=== PATIENT | female | born 1945 | race Caucasian/White ===

== ENCOUNTER 2018-05-01 18:25 | Inpatient (IN) ==
[2018-05-01] MEDS ORDERED: Sod Chloride 0.9% Inj 1,000 ML IV.SIG ONE (18:49)
[2018-05-01 19:41] LABS: Hematocrit 28.2 % (35.0-46.0); Hemoglobin 9.8 gm/dL (11.6-15.3); Mean Corpuscular HGB Conc 34.7 % (32.0-36.0); Mean Corpuscular Hemoglobin 29.1 pg (27.0-34.0); Mean Platelet Volume 7.9 fL (7.0-11.0); Platelet Count 478 th/mm3 (150-450); Red Blood Count 3.36 mil/mm3 (4.00-5.30); Red Cell Distribution Width 14.9 % (11.6-17.2); White Blood Count 7.8 th/mm3 (4.0-11.0)
[2018-05-01 20:07] LABS: Eosinophils 1 % (0-4); Lymphocytes 26 % (9-44); Metamyelocytes 3 % (0-1); Monocytes 9 % (0-8)
[2018-05-01 20:09] LABS: Dohle Bodies Present; Platelet Morphology Normal (Normal)
--- NOTE | 2018-05-01 21:10 | ED ---
HPI General Chief complaint: GI Bleed Stated complaint: Rectal bleeding Time Seen by Provider: 05/01/18 18:35 Source: patient Limitations: no limitations History of Present Illness HPI Narrative: Patient is a 72-year-old female, past medical history significant for atrial fibrillation for which she is on Eliquis, who presents with complaint of bright red blood per rectum. She states that she has had profuse, watery diarrhea for the last several weeks and has now started to have hematochezia. She is also having intermittent lightheadedness with intermittent generalized weakness. No chest pain, dyspnea. No abdominal pain, back pain. No fever nor chills. No history of liver disease nor alcoholism. MD complaint: gross hematochezia Onset (ago): day(s) Pain Consistency: constant Severity: moderate Relieving factors: none Exacerbating factors: none Context: medication/supplement use Treatments Prior to Arrival: none Related Data Home Medications Medication Instructions Recorded Confirmed aspirin [Aspir-Low] 81 mg PO DAILY 04/17/18 05/01/18 cholecalciferol (vitamin D3) 2,000 unit PO DAILY 04/17/18 05/01/18 [Vitamin D3] omeprazole 20 mg PO DAILY 04/17/18 05/01/18 vit C,R-Ts-gnmup-lutein-zeaxan 1 tab PO BID 04/17/18 05/01/18 [PreserVision AREDS 2] metoprolol tartrate 100 mg PO BID 05/01/18 05/01/18 simvastatin 20 mg PO HS 05/01/18 05/01/18 Previous Rx's Medication Instructions Recorded apixaban [Eliquis] 5 mg PO BID 30 Days #60 tab 04/24/18 levofloxacin 750 mg PO DAILY #7 tab 04/24/18 magnesium oxide 400 mg PO DAILY 30 Days #30 tab 04/24/18 metronidazole 500 mg PO TID 9 Days #27 tab 04/24/18 potassium chloride 20 meq PO DAILY 30 Days #30 tab 04/24/18 loperamide 1 mg PO Q3H PRN #10 tab 04/25/18 nystatin 5 ml BUCCAL QID 7 Days #140 ml 04/26/18 Allergies Allergy/AdvReac Type Severity Reaction Status Date / Time erythromycin base Allergy Diarrhea Verified 04/17/18 11:12 Review of Systems ROS: all other systems reviewed are negative [facility] Social History Social History Substance History: No History of Abuse Smoking Status: Never smoker How Often Do You Have a Drink Containing Alcohol: Never Recent Travel in [facility] within the Last 8 Weeks: No Recent Out of Country Travel within the Last 8 Weeks: No Immunization History Tetanus Immunization: <5 Years Hx Influenza Vaccine This Season: Yes Exam Narrative Exam Narrative: GENERAL: Ill-appearing female in no acute distress SKIN: Focused skin assessment warm/dry, pale. HEAD: Atraumatic. Normocephalic. EYES: Pupils equal and round. No scleral icterus. No injection or drainage. ENT: No nasal bleeding or discharge. Mucous membranes pink and moist. NECK: Trachea midline. No JVD. CARDIOVASCULAR: Regular rate and rhythm. No murmur appreciated. Intact and equal peripheral pulses. RESPIRATORY: No accessory muscle use. Clear to auscultation. Breath sounds equal bilaterally. GASTROINTESTINAL: Abdomen soft, non-tender, nondistended. Hepatic and splenic margins not palpable. Bright red blood per rectum. MUSCULOSKELETAL: No obvious deformities. No clubbing. No cyanosis. No edema. NEUROLOGICAL: Awake and alert. No obvious cranial nerve deficits. Motor grossly within normal limits. Normal sensation. No ataxia. Normal speech. PSYCHIATRIC: Appropriate mood and affect; insight and judgment normal. Course Initial Documented Vital Signs Temperature 98.3 F 05/01/18 18:33 Pulse Rate 98 H 05/01/18 18:33 Respiratory Rate 18 05/01/18 18:33 Blood Pressure 82/51 L 05/01/18 18:33 Pulse Oximetry 96 05/01/18 18:33 Last Documented Vital Signs Temperature 98.4 F 05/01/18 21:54 Pulse Rate 104 H 05/02/18 00:16 Respiratory Rate 18 05/02/18 00:16 Blood Pressure 118/50 L 05/02/18 00:16 Pulse Oximetry 99 05/01/18 21:54 Medical Decision Making MDM Narrative Medical decision making narrative: Patient is a 72-year-old female, past medical history significant for atrial fibrillation recently started on blood thinners, who presents with complaint of several weeks of profuse, watery diarrhea that is now bloody. She denies any pain. She does have gross hematochezia on exam. She was initially hypotensive and was given fluids to which her blood pressure did respond. Initial CBC revealed a hemoglobin that had dropped approximately 3 points from her baseline and repeat several hours later had dropped another point at which time 2 units of PRBCs was ordered as she had hypotension, though it was improving (systolic in the 90s with a HR in the 90s and normal mental status). Labs reveal an MAC as well. CT pending. Patient was admitted to Dr Jensen, l d rn carton repairer, whom accepted the patient. Medical Screen Exam Complete: Yes Emergency Medical Condition: Yes Differential Diagnosis Differential Diagnosis: Differential diagnosis includes but is not limited to diverticulosis, AVM, colitis. Medical Records Medical records reviewed: Yes I reviewed the patient's medical records. Lab Data Lab results reviewed: Yes I reviewed the patient's lab results. Result diagrams: 05/01/18 21:55 05/01/18 21:50 Lab Results 05/01/18 05/01/18 05/01/18 Range/Units 19:30 19:40 19:40 CBC w Diff Slide review pending WBC 7.8 (4.0-11.0) th/mm3 RBC 3.36 L (4.00-5.30) mil/mm3 Hgb 9.8 L (11.6-15.3) gm/dL Hct 28.2 L (35.0-46.0) % MCV 84.0 (80.0-100.0) fL MCH 29.1 (27.0-34.0) pg MCHC 34.7 (32.0-36.0) % RDW 14.9 (11.6-17.2) % Plt Count 478 H D (150-450) th/mm3 MPV 7.9 (7.0-11.0) fL WBC Differential Manual diff final Seg Neuts % (Manual) 37 (16-70) % Band Neuts % (Manual) 24 H (0-6) % Lymphocytes % (Manual) 26 (9-44) % Monocytes % (Manual) 9 H (0-8) % Eosinophils % (Manual) 1 (0-4) % Metamyelocytes % (Man) 3 H (0-1) % Abs Neuts (Manual) 5.0 (1.8-7.7) th/mm3 Differential Comment . Dohle Bodies Present H (None) Platelet Estimate High H (Normal) Platelet Morphology Normal (Normal) PT (9.8-11.6) sec INR Ratio APTT (24.3-30.1) sec Sodium (136-145) meq/L Potassium (3.5-5.1) meq/L Chloride (98-107) meq/L Carbon Dioxide (21.0-32.0) meq/L Anion Gap (5-15) meq/L BUN (7-18) mg/dL Creatinine (0.50-1.00) mg/dL Estimated GFR (>89) mL/min Random Glucose (74-106) mg/dL Calcium (8.5-10.1) mg/dL Prot Corrected Calcium (8.5-10.1) mg/dL Total Bilirubin (0.2-1.0) mg/dL AST (15-37) U/L ALT (10-53) U/L Alkaline Phosphatase (45-117) U/L Total Protein (6.4-8.2) g/dL Albumin (3.4-5.0) g/dL Lipase (73-393) U/L Ur Collection Type Urine Color (Yellw/Straw) Urine Clarity (Clear) Urine pH (5.0-8.5) Ur Specific [place] (1.002-1.035) Urine Protein (Neg-Trace) mg/dL Urine Glucose (UA) (Negative) mg/dL Urine Ketones (Negative) mg/dL Urine Occult Blood (Negative) Urine Nitrate (Negative) Urine Bilirubin (Negative) Urine Urobilinogen (Less than 2) mg/dL Ur Leukocyte Esterase (Negative) Urine RBC (0-3) /hpf Urine WBC (0-5) /hpf Ur Squamous Epith Cells (0-5) /hpf Urine Bacteria (None) /hpf Micro UA Comment Ur Microscopic Review Urine Culture Comments Blood Type A Negative Blood Type Recheck Required Antibody Screen Negative MTS Gel Crossmatch See Detail 05/01/18 05/01/18 05/01/18 Range/Units 21:50 21:50 21:55 CBC w Diff WBC 6.2 (4.0-11.0) th/mm3 RBC 2.89 L (4.00-5.30) mil/mm3 Hgb 8.2 L (11.6-15.3) gm/dL Hct 24.5 L (35.0-46.0) % MCV 84.8 (80.0-100.0) fL MCH 28.4 (27.0-34.0) pg MCHC 33.5 (32.0-36.0) % RDW 14.7 (11.6-17.2) % Plt Count 493 H (150-450) th/mm3 MPV 7.3 (7.0-11.0) fL WBC Differential Seg Neuts % (Manual) (16-70) % Band Neuts % (Manual) (0-6) % Lymphocytes % (Manual) (9-44) % Monocytes % (Manual) (0-8) % Eosinophils % (Manual) (0-4) % Metamyelocytes % (Man) (0-1) % Abs Neuts (Manual) (1.8-7.7) th/mm3 Differential Comment Dohle Bodies (None) Platelet Estimate (Normal) Platelet Morphology (Normal) PT 22.4 H (9.8-11.6) sec INR 2.2 Ratio APTT 57.8 H (24.3-30.1) sec Sodium 143 (136-145) meq/L Potassium 3.5 (3.5-5.1) meq/L Chloride 117 H (98-107) meq/L Carbon Dioxide 15.5 L (21.0-32.0) meq/L Anion Gap 11 (5-15) meq/L BUN 34 H (7-18) mg/dL Creatinine 2.60 H (0.50-1.00) mg/dL Estimated GFR 18 L (>89) mL/min Random Glucose 89 (74-106) mg/dL Calcium 6.1 L* (8.5-10.1) mg/dL Prot Corrected Calcium 7.5 L (8.5-10.1) mg/dL Total Bilirubin 0.3 (0.2-1.0) mg/dL AST 20 (15-37) U/L ALT 9 L (10-53) U/L Alkaline Phosphatase 40 L (45-117) U/L Total Protein 4.3 L (6.4-8.2) g/dL Albumin 0.9 L (3.4-5.0) g/dL Lipase 143 (73-393) U/L Ur Collection Type Urine Color (Yellw/Straw) Urine Clarity (Clear) Urine pH (5.0-8.5) Ur Specific [place] (1.002-1.035) Urine Protein (Neg-Trace) mg/dL Urine Glucose (UA) (Negative) mg/dL Urine Ketones (Negative) mg/dL Urine Occult Blood (Negative) Urine Nitrate (Negative) Urine Bilirubin (Negative) Urine Urobilinogen (Less than 2) mg/dL Ur Leukocyte Esterase (Negative) Urine RBC (0-3) /hpf Urine WBC (0-5) /hpf Ur Squamous Epith Cells (0-5) /hpf Urine Bacteria (None) /hpf Micro UA Comment Ur Microscopic Review Urine Culture Comments Blood Type Blood Type Recheck Antibody Screen MTS Gel Crossmatch 05/01/18 Range/Units 23:00 CBC w Diff WBC (4.0-11.0) th/mm3 RBC (4.00-5.30) mil/mm3 Hgb (11.6-15.3) gm/dL Hct (35.0-46.0) % MCV (80.0-100.0) fL MCH (27.0-34.0) pg MCHC (32.0-36.0) % RDW (11.6-17.2) % Plt Count (150-450) th/mm3 MPV (7.0-11.0) fL WBC Differential Seg Neuts % (Manual) (16-70) % Band Neuts % (Manual) (0-6) % Lymphocytes % (Manual) (9-44) % Monocytes % (Manual) (0-8) % Eosinophils % (Manual) (0-4) % Metamyelocytes % (Man) (0-1) % Abs Neuts (Manual) (1.8-7.7) th/mm3 Differential Comment Dohle Bodies (None) Platelet Estimate (Normal) Platelet Morphology (Normal) PT (9.8-11.6) sec INR Ratio APTT (24.3-30.1) sec Sodium (136-145) meq/L Potassium (3.5-5.1) meq/L Chloride (98-107) meq/L Carbon Dioxide (21.0-32.0) meq/L Anion Gap (5-15) meq/L BUN (7-18) mg/dL Creatinine (0.50-1.00) mg/dL Estimated GFR (>89) mL/min Random Glucose (74-106) mg/dL Calcium (8.5-10.1) mg/dL Prot Corrected Calcium (8.5-10.1) mg/dL Total Bilirubin (0.2-1.0) mg/dL AST (15-37) U/L ALT (10-53) U/L Alkaline Phosphatase (45-117) U/L Total Protein (6.4-8.2) g/dL Albumin (3.4-5.0) g/dL Lipase (73-393) U/L Ur Collection Type Cath Urine Color Amy H (Yellw/Straw) Urine Clarity Slightly cloudy (Clear) Urine pH 5.5 (5.0-8.5) Ur Specific [place] 1.020 (1.002-1.035) Urine Protein 100 H (Neg-Trace) mg/dL Urine Glucose (UA) Negative (Negative) mg/dL Urine Ketones Negative (Negative) mg/dL Urine Occult Blood Large H (Negative) Urine Nitrate Positive H (Negative) Urine Bilirubin Negative (Negative) Urine Urobilinogen 0.2 (Less than 2) mg/dL Ur Leukocyte Esterase Negative (Negative) Urine RBC 51-189 H (0-3) /hpf Urine WBC 0-5 (0-5) /hpf Ur Squamous Epith Cells 0-5 (0-5) /hpf Urine Bacteria Few H (None) /hpf Micro UA Comment Cath-culture ind Ur Microscopic Review Microscopic reviewed Urine Culture Comments Cath-cult indicated Blood Type Blood Type Recheck Antibody Screen MTS Gel Crossmatch ECG Data EKG Prior to Arrival: No Attestation: I personally reviewed and interpreted this ECG as follows: (Sinus rhythm at a rate of [address] or T-wave changes.) Discharge Plan Discharge Disposition Patient Disposition: 30 Still Patient Discharge Condition Condition: Serious Discharge Details Diagnosis: Acute blood loss anemia, MAC (acute kidney injury), Acute dehydration, Acute hypotension Physicians Team ED Provider: Manju Panchal Primary Care Provider: UNKNOWN, Attending Provider: Luigi Jensen Discharge Interventions Interventions: Vital Signs Last Done: 05/02/18 00:16 Status ED Status: Admitted Patient
[2018-05-01 22:05] LABS: Potassium 3.5 meq/L (3.5-5.1)
[2018-05-01 22:05] LABS: Hematocrit 24.5 % (35.0-46.0); Hemoglobin 8.2 gm/dL (11.6-15.3); Mean Corpuscular HGB Conc 33.5 % (32.0-36.0); Mean Corpuscular Hemoglobin 28.4 pg (27.0-34.0); Mean Corpuscular Volume 84.8 fL (80.0-100.0); Mean Platelet Volume 7.3 fL (7.0-11.0); Platelet Count 493 th/mm3 (150-450); Red Blood Count 2.89 mil/mm3 (4.00-5.30); Red Cell Distribution Width 14.7 % (11.6-17.2); White Blood Count 6.2 th/mm3 (4.0-11.0)
[2018-05-01 22:10] LABS: Activated Partial Thrombo Time 57.8 sec (24.3-30.1); INR 2.2 Ratio; Prothrombin Time 22.4 sec (9.8-11.6)
[2018-05-01 22:22] LABS: Albumin 0.9 g/dL (3.4-5.0); Calcium 6.1 mg/dL (8.5-10.1); Carbon Dioxide 15.5 meq/L (21.0-32.0); Total Protein 4.3 g/dL (6.4-8.2)
[2018-05-01] MEDS ORDERED: Sodium Chlor 0.9% Inj 250 ML IV.SIG SCH (23:00)
[2018-05-01 23:27] LABS: Bilirubin,Urine Negative (Negative); Clarity,Urine Slightly Cloudy (Clear); Glucose,Urine (UA) Negative (Negative); Leukocyte Esterase,Urine Negative (Negative); Nitrite,Urine Positive (Negative); PH,Urine 5.5 (5.0-8.5); Urobilinogen,Urine 0.2 mg/dL (Less than 2)
[2018-05-01 23:31] LABS: Color,Urine Amber (Yellw/Straw)
[2018-05-01 23:32] LABS: Bacteria,Urine Few /hpf; RBC,Urine 51-189 /hpf (0-3); Squamous Epithelial Cell,Urine 0-5 /hpf (0-5); WBC,Urine 0-5 /hpf (0-5)
--- NOTE | 2018-05-02 00:57 | CT ---
EXAM DATE: 05/02/2018 12:37 AM EDT AGE/SEX: 72 years / Female INDICATIONS: Rectal bleeding. Diarrhea. CLINICAL DATA: This is the patient's initial encounter. Patient reports that signs and symptoms have been present for 1 day and indicates a pain score of 5/10. MEDICAL/SURGICAL HISTORY: None. None. RADIATION DOSE: 25.00 CTDI (mGy) COMPARISON: [facility], CT ABDOMEN & PELVIS W/O CONTRAST, 04/17/2018. . TECHNIQUE: Multiple contiguous axial images were obtained through the abdomen. Images were obtained using multiple row detector helical technique. Using automated exposure control and adjustment of the mA and/or kV according to patient size, radiation dose was kept as low as reasonably achievable to o btain optimal diagnostic quality images. DICOM format image data is available electronically for rev iew and comparison. FINDINGS: Lower Lungs: Mild patchy infiltrate in the lung bases. Liver: The liver has a homogeneous density without space-occupying lesion. There is no dilation of th e biliary tree. Gallbladder filled with stones. Spleen: Homogeneous density without enlargement. Pancreas: Unremarkable without mass or calcification. Kidneys: Persistent moderate right hydronephrosis proximal to a slightly greater than 10 mm stone in the proximal right ureter. Multiple additional nonobstructing calculi in the renal pelvis and right kidney. Interval resolution of left hydronephrosis with apparent displacement of a sizable stone prev iously present at the ureteropelvic junction into the lower pole collecting system. Multiple renal co rtical and parapelvic cysts. Adrenal Glands: Unremarkable. Aorta: The aorta and proximal iliac vessels are grossly unremarkable without aneurysmal dilation. Bowel/Mesentery: The colon is moderately dilated proximally. Air-fluid levels present. There are div erticula present and there is mild indurative change adjacent to portions of the distal colon, most c onspicuously in the region of the splenic flexure and proximal descending. There is no clear transiti on point to indicate mechanical obstruction. The small bowel is mildly distended. Abdominal Wall: Fat-containing umbilical hernia again noted. Retroperitoneum: No evidence of adenopathy in the retrocrural, para-aortic, or deep pelvic regions. Bladder: Contours are smooth. Reproductive Organs: No abnormal masses or calcifications seen. Inguinal: The inguinal region is unremarkable without evidence of adenopathy. Bony Structures: Severe presumed posttraumatic and arthritic deformity of the right hip. Degenerativ e changes in the spine. CONCLUSION: 1. Possible distal colonic diverticulitis or colitis with findings most suggestive of associated ile us. 2. Persistent right-sided hydronephrosis with proximal right ureteral stone. 3. Interval resolution of left-sided hydronephrosis 4. Other abdominal and pelvic findings are grossly stable. Electronically signed by: Dano Brown MD 05/02/2018 12:56 AM EDT
[2018-05-02] MEDS ORDERED: Morphine Inj 4 MG/ML Vial IV.PUSH PRN (03:33)
[2018-05-02] MEDS ORDERED: Bisacodyl 10 MG Supp RECTAL PRN (03:33)
[2018-05-02] MEDS ORDERED: Chlorhexidine Gluconate 2% 1 Pack (2 Cloths) TOPICAL PRN (04:00)
[2018-05-02] MEDS: Pantoprazole Inj 40 MG Vial IV.PUSH SCH ×2 (04:12→18:30)
[2018-05-02] MEDS: Sod Chloride 0.9% Inj 1,000 ML IV.CONT SCH ×4 (04:12→22:22)
[2018-05-02] MEDS: Chlorhexidine Gluconate 2% 1 Pack (2 Cloths) TOPICAL SCH (04:12)
[2018-05-02] MEDS ORDERED: Phenylephrine Inj 40 MG in Dextrose 5% in Water Inj 496 ML IV.CONT PRN ×2 (04:38)
[2018-05-02] MEDS: Sod Chloride 0.9% Inj 1,000 ML IV.SIG SCH ×2 (04:40→06:09)
[2018-05-02] MEDS ORDERED: Calcium Chloride Inj 2 GM in Sodium Chlor 0.9% Inj 100 ML IV.SIG ONE (04:43)
--- NOTE | 2018-05-02 04:44 | P.HPCC ---
History of Present Illness Primary Care Physician: UNKNOWN History of Present Illness: 72-year-old female, past medical history significant for atrial fibrillation on Eliquis, presents with complaint of bright red blood per rectum. She states that she has had profuse, watery diarrhea for the last several weeks and has now started to have hematochezia. She is also having intermittent lightheadedness with intermittent generalized weakness. She denies chest pain, shortness of breath. No abdominal pain, back pain. No fever nor chills. No history of liver disease nor alcoholism. Inpatient Certification: I certify that the inpatient services were ordered in accordance with Medicare regulations governing the order. This includes certification that hospital inpatient services are reasonable and necessary and in the case of services not specified as inpatient-only under 42 CFR 419.22(n), that they are appropriately provided as inpatient services in accordance to with the 2-midnight benchmark under 43 CFR 412.3(e) Estimated Total Length of Stay (Days): 5 Plans for Post Hospital Care: Not yet determined Review of Systems All other systems reviewed negative except as stated [facility] - History History Provided By: Patient - Tobacco History Second Hand Smoke Exposure: No Smoking Status: Never smoker - Alcohol History How Often Do You Have a Drink Containing Alcohol: Never - Substance Use History Substance History: No History of Abuse - Travel History Recent Travel in the [place] Within the Last 8 Weeks: No Recent Travel Out of the Country Within the Last 8 Weeks: No - Immunization History Tetanus Immunization: <5 Years Hx Influenza Vaccine This Season: Yes Medications and Allergies Active Medications: Active Medications Acetaminophen (Tylenol) 650 mg PO Q6H PRN PRN Reason: PAIN 1-10 AND/OR FEVER >101F Al Hydroxide/Mg Hydroxide (Milk Of [place] Liq) 30 ml PO Q12H PRN PRN Reason: Mild Constipation Albuterol (Duoneb Neb (Prn)) 1 ampul NEB Q2HR NEB PRN PRN Reason: WHEEZING Bisacodyl (Dulcolax Supp) 10 mg RECTAL DAILY PRN PRN Reason: SEVERE CONSITIPATION Chlorhexidine Gluconate (Chlorhexidine 2% Cloth) 3 pack TOPICAL DAILY@0400 PRN PRN Reason: Extra cloth needed Stop: 05/07/18 03:59 Chlorhexidine Gluconate (Chlorhexidine 2% Cloth) 3 pack TOPICAL DAILY@0400 LYNN Stop: 05/07/18 03:59 Last Admin: 05/02/18 04:12 Dose: 3 pack Sodium Chloride (Ns Inj) 250 mls @ 15 mls/hr IV.SIG ONCE LYNN Stop: 05/02/18 15:39 Last Admin: 05/02/18 03:14 Dose: 15 mls/hr Sodium Chloride (Ns Inj) 1,000 mls @ 0 mls/hr IV.SIG BOLUS [facility] Stop: 05/03/18 03:46 Sodium Chloride (Ns Inj) 1,000 mls @ 154 mls/hr IV.CONT .Q6H30M [facility] Last Admin: 05/02/18 04:12 Dose: 154 mls/hr Metronidazole/Sodium Chloride (Flagyl 500 Mg Inj) 100 mls @ 100 mls/hr IV.SIG Q6H LYNN Levofloxacin/Dextrose (Levaquin 750 Mg Premix Inj) 150 mls @ 100 mls/hr IV.SIG Q48H [facility] Lactulose (Lactulose Liq) 30 ml PO DAILY PRN PRN Reason: SEVERE CONSITIPATION Morphine Sulfate (Morphine Inj) 2 mg IV.PUSH Q2H PRN PRN Reason: PAIN SCALE 6 TO 10 Nystatin (Mycostatin Liq) 5 ml BUCCAL QID L[facility]NN Ondansetron HCl (Zofran Inj) 4 mg IV.PUSH Q6H PRN PRN Reason: NAUSEA OR VOMITING Pantoprazole Sodium (Protonix Inj) 40 mg IV.PUSH Q12H [facility] Last Admin: 05/02/18 04:12 Dose: 40 mg Pravastatin Sodium (Pravachol) 40 mg PO HS [facility] Senna/Docusate Sodium (Maggie-Colace) 1 tab PO BID [facility] Sennosides (Senokot) 17.2 mg PO Q12H PRN PRN Reason: Moderate Constipation Sodium Chloride (Ns Flush) 2 ml IV.FLUSH PRN PRN PRN Reason: FLUSH AFTER USING IV ACCESS Sodium Chloride (Ns Flush) 2 ml IV.FLUSH BID [facility] Sodium Chloride (Ns Flush) 2 ml IV.FLUSH PRN PRN PRN Reason: FLUSH AFTER USING IV ACCESS Vitamin D (Vitamin D3) 2,000 unit PO DAILY [facility] Allergies Allergy/AdvReac Type Severity Reaction Status Date / Time erythromycin base Allergy Diarrhea Verified 04/17/18 11:12 Home Medications Medication Instructions Recorded Confirmed Type aspirin [Aspir-Low] 81 mg PO DAILY 04/17/18 05/01/18 History cholecalciferol (vitamin D3) 2,000 unit PO DAILY 04/17/18 05/01/18 History [Vitamin D3] omeprazole 20 mg PO DAILY 04/17/18 05/01/18 History vit C,T-Zv-qjbqc-lutein-zeaxan 1 tab PO BID 04/17/18 05/01/18 History [PreserVision AREDS 2] metoprolol tartrate 100 mg PO BID 05/01/18 05/01/18 History simvastatin 20 mg PO HS 05/01/18 05/01/18 History Results - Labs CBC & Chem 7: 05/01/18 21:55 05/01/18 21:50 Labs: Short CBC 05/01/18 05/01/18 Range/Units 19:30 21:55 WBC 7.8 6.2 (4.0-11.0) th/mm3 Hgb 9.8 L 8.2 L (11.6-15.3) gm/dL Hct 28.2 L 24.5 L (35.0-46.0) % Plt Count 478 H D 493 H (150-450) th/mm3 BMP 05/01/18 21:50 Sodium 143 Potassium 3.5 Chloride 117 H Carbon Dioxide 15.5 L BUN 34 H Creatinine 2.60 H Calcium 6.1 L* Liver Function 05/01/18 Range/Units 21:50 Total Bilirubin 0.3 (0.2-1.0) mg/dL AST 20 (15-37) U/L ALT 9 L (10-53) U/L Alkaline Phosphatase 40 L (45-117) U/L Albumin 0.9 L (3.4-5.0) g/dL Urine 05/01/18 Range/Units 23:00 Urine Color Amy H (Yellw/Straw) Urine Clarity Slightly cloudy (Clear) Urine pH 5.5 (5.0-8.5) Ur Specific [place] 1.020 (1.002-1.035) Urine Protein 100 H (Neg-Trace) mg/dL Urine Glucose (UA) Negative (Negative) mg/dL - Imaging Impressions Abdomen/Pelvis CT 05/02/18 00:10 CONCLUSION: 1. Possible distal colonic diverticulitis or colitis with findings most suggestive of associated ileus. 2. Persistent right-sided hydronephrosis with proximal right ureteral stone. 3. Interval resolution of left-sided hydronephrosis 4. Other abdominal and pelvic findings are grossly stable. Exam Vital signs: Vital Signs 05/01/18 18:33 05/01/18 19:00 05/01/18 19:58 Temperature 98.3 F 98.2 F Pulse Rate 98 H 108 H 98 H Respiratory Rate 18 18 18 Blood Pressure 82/51 L 81/52 L 76/50 L Pulse Oximetry 96 98 05/01/18 21:30 05/01/18 21:40 05/01/18 21:54 Temperature 98.4 F Pulse Rate 102 H 96 H 94 H Respiratory Rate 20 18 20 Blood Pressure 88/62 L 81/50 L 94/51 L Pulse Oximetry 99 05/01/18 22:10 05/01/18 23:20 05/02/18 00:16 Temperature Pulse Rate 100 H 104 H 104 H Respiratory Rate 18 18 18 Blood Pressure 79/50 L 80/59 L 118/50 L Pulse Oximetry 05/02/18 00:30 05/02/18 01:30 05/02/18 01:45 Temperature 98.4 F 98.8 F Pulse Rate 98 H 98 H 94 H Respiratory Rate 20 18 20 Blood Pressure 109/56 L 90/50 L 98/62 L Pulse Oximetry 05/02/18 02:01 05/02/18 03:33 05/02/18 03:52 Temperature 98.0 F 97.6 F 97.6 F Pulse Rate 94 H 99 H 101 H Respiratory Rate 18 19 20 Blood Pressure 98/59 L 97/53 L 84/56 L Pulse Oximetry 100 100 Intake & Output 05/01/18 05/01/18 05/02/18 06:59 18:59 06:59 Intake Total 1500 / 1500 Output Total 300 / 300 Balance 1200 / 1200 Weight 105.687 kg 112.2 kg Intake: IV 1100 / 1100 NS Inj 1,000 ML @ Wide Open IV. 1000 / 1000 SIG BOLUS ONE Rx#:[id number] Flagyl 500 MG Inj 100 ML @ 100 100 / 100 mls/hr IV.SIG ONCE ONE Rx#: [id number] Intake (Blood Product) Amt 400 / 400 Rbc As-3 Leukoreduced Unit 0 / 0 [id number] Rbc As-3 Leukoreduced Unit 400 / 400 [id number] Output: Urine 300 / 300 Other: # Voids 1 Date of Last Bowel Movement 05/02/18 # Bowel Movements 3 Weight On Admission 112.2 kg - Constitutional mild distress - Routine HEENT Exam Head: Present: normocephalic, atraumatic Eye: Present: PERRL ENT: Present: mucous membranes moist - Routine Neck Exam Present: supple, full ROM. Absent: JVD, carotid bruit - Routine Chest/Breast/Axilla Exam Chest wall: Absent: tenderness, mass, pacemaker - Routine Respiratory Exam Absent: accessory muscle use, rhonchi, stridor, wheezes - Routine Cardiovascular Exam Present: S1, S2, irregular rhythm. Absent: murmur, gallop, rubs - Routine Abdominal Exam Present: soft, normoactive bowel sounds. Absent: tenderness, distended - Routine Extremities Exam Absent: cyanosis, clubbing, edema - Routine Skin Exam Present: intact. Absent: cyanosis, erythema - Routine Neurological Exam Present: alert, oriented X3, moving all extremities Septic Shock Reassessment Septic shock perfusion: reassessment completed Caprini VTE Risk Assessment Caprini VTE Risk Assessment: Moderate/High Risk (score >= 2) VTE Pharmacological Exception Reason: Hemorrhage Caprini Risk Assessment Model: Point Value = 1 Point Value = 2 Point Value = 3 Point Value = 5 Age 41-60 Minor surgery BMI > 25 kg/m2 Swollen legs Varicose veins or History of unexplained or recurrent spontaneous Oral contraceptives or hormone replacement Sepsis (< 1 month) Serious lung disease, including pneumonia (< 1 month) Abnormal pulmonary function Acute myocardial infarction Congestive heart failure (< 1 month) History of inflammatory bowel disease Medical patient at bed rest Age 61-74 Arthroscopic surgery Major open surgery (> 45 min) Laparoscopic surgery (> 45 min) Malignancy Confined to bed (> 72 hours) Immobilizing plaster cast Central venous access Age >= 75 History of VTE Family history of VTE Factor V Leiden Prothrombin [id number] Lupus anticoagulant Anticardiolipin antibodies Elevated serum homocysteine Heparin-induced thrombocytopenia Other congenital or acquired thrombophilia Stroke (< 1 month) Elective arthroplasty Hip, pelvis, or leg fracture Acute spinal cord injury (< 1 month) Prophylaxis Regimen: Total Risk Factor Score Risk Level Prophylaxis Regimen 0-1 Low Early ambulation 2 Moderate Order ONE of the following: *Sequential Compression Device (SCD) *Heparin 5000 units SQ BID 3-4 Higher Order ONE of the following medications: *Heparin 5000 units SQ TID *Enoxaparin/Lovenox 40 mg SQ daily (WT < 150 kg, CrCl > 30 mL/min) *Enoxaparin/Lovenox 30 mg SQ daily (WT < 150 kg, CrCl > 10-29 mL/min) *Enoxaparin/Lovenox 30 mg SQ BID (WT < 150 kg, CrCl > 30 mL/min) AND/OR *Sequential Compression Device (SCD) 5 or more Highest Order ONE of the following medications: *Heparin 5000 units SQ TID (Preferred with Epidurals) *Enoxaparin/Lovenox 40 mg SQ daily (WT < 150 kg, CrCl > 30 mL/min) *Enoxaparin/Lovenox 30 mg SQ daily (WT < 150 kg, CrCl > 10-29 mL/min) *Enoxaparin/Lovenox 30 mg SQ BID (WT < 150 kg, CrCl > 30 mL/min) AND *Sequential Compression Device (SCD) Assessment and Plan - Assessment and Plan Plan: Acute GI bleed -N.p.o. -Hold aspirin, hold Eliquis -Protonix IV twice daily -IV fluid resuscitation -Transfuse PRBCs to keep hemoglobin above 7 -Gastroenterology consultation -PCC not available at [place] at this time Anemia -Due to above -Series of H&H -Transfuse to keep hemoglobin above 7 Atrial fibrillation -Rate controlled -Hold metoprolol due to borderline hypotension -Hold liquids due to GI bleed -Continue telemetry Dyslipidemia -Pravastatin Diverticulitis - Metronidazole - Levofloxacin Acute kidney injury -Volume loss -Dehydration -Aggressive IV fluid resuscitation -Strict I's and O -Monitor electrolytes and creatinine DVT GI prophylaxis -Teds SCDs -No pharmacological DVT prophylaxis due to GI bleed -Protonix IV twice daily 35 minutes of critical care H&P: Quality - VTE Deep Vein Thrombosis/Pulmonary Embolism Present on Admission: No
[2018-05-02] MEDS ORDERED: VIT C E ZN COPPR LUTEIN ZEAXAN PO SCH (09:00)
[2018-05-02] MEDS: Nystatin Liq 500,000 UNIT/5 ML UDC BUCCAL SCH ×4 (09:46→20:24)
[2018-05-02] MEDS: Senna/Docusate Sodium 8.6/50 MG Tablet PO SCH ×2 (09:47→20:25)
--- NOTE | 2018-05-02 10:25 | P.CONGI ---
History of Present Illness Consult date: 05/02/18 Consult reason: GI Bleed Chief complaint: Acute Blood Loss Anemia, Hypotension, MAC History of Present Illness: Mrs. Hackett is a 72-year-old female patient who presented to the emergency room last evening with report of bright red blood per rectum patient has history of acute renal failure as well as atrial fibrillation and hypercholesterolemia. Patient was taking Eliquis for atrial fibrillation. Patient states that she has had several weeks of loose green stool and bright red blood per rectum was noted by staff at rehab center last evening.Patient reported feeling lightheaded and weak over the last several weeks but has been able to participate in physical therapy at the rehab center. Patient denies abdominal pain, nausea or vomiting. Patient denies shortness of breath at rest or on exertion. Patient states her father on 04/17/2018 and that she began to have loose stools with nausea and vomiting and weakness at that time. Patient denies ever having had a colonoscopy or upper endoscopy. Patient states "I watch my father suffer through the many endoscopies that he underwent. " Patient states that she has always declined to have any endoscopy procedures performed and her primary care physician has her do yearly Cologuard tests. Patient states that these tests have always been negative for any blood present in stool. Last Cologuard test was 1 year ago per patient. Patient reports hx of GERD for which she takes Protonix that controls symptoms. States positive family history for colon cancer, maternal aunt. Patient denies any alcohol usage patient denies smoking and denies NSAID use. Denies any known history of liver disease for herself or family members. She states that she has had bacterial infections in her colon, "many times and they always give me Cipro and it works." I discussed diet recommendations to reduce the incidence of diverticulitis and patient verbalized understanding. Upon arrival to [facility] patient's labs revealed --> WBC 7.8 RBC 3.36 hemoglobin 9.8 hematocrit 28.2. INR 2.2 total bilirubin 0.3 AST 20 ALT 9 alk phos 40 albumin 0.9. Repeat CBC done at 05/01/2018 at 2155 hemoglobin 8.2 hematocrit 24.5. Patient was transfused with 2 units of packed RBCs. CT scan of abdomen and pelvis done and revealed. Possible distal colonic diverticulitis or colitis with findings most suggestive of associated ileus. Persistent right-sided hydronephrosis with proximal right ureteral stone. Interval resolution of left- sided hydronephrosis. Other abdominal and pelvic findings are grossly stable. At this time patient is receiving IV Flagyl and Levaquin. Eliquis is on hold. This practice has been consulted to evaluate and monitor GI bleeding. <Danielle Louis - Last Filed: 05/02/18 13:58> Review of Systems Constitutional: Reports weakness, Denies chills, Denies excessive sweating, Denies night sweats Ears, Nose, Mouth, and Throat: Denies difficulty swallowing Cardiovascular: Denies chest pain, Denies chest pain at rest, Denies chest pain with activity, Denies fainting, Denies generalized swelling, Denies rapid, pounding, or irregular heartbeat, Denies shortness of breath Comments: Pt has hx of atrial fibrillation Gastrointestinal: Reports bright, red blood in stools, Reports change in bowel habits, Reports incontinent of stools, Denies abdominal pain, Denies black, tarry stools, Denies coffee ground vomit, Denies heartburn, Denies nausea, Denies pain with swallowing, Denies vomiting, Denies vomiting blood Genitourinary: Denies blood in urine Musculoskeletal: Denies back pain Skin/Breast: Denies bleeding lesions Neurologic: Denies confusion, Denies dizziness Hematologic/Lymphatic: Denies easy bruising <Danielle Louis - Last Filed: 05/02/18 13:58> PMFSH - History History Provided By: Patient - Tobacco History Second Hand Smoke Exposure: No Smoking Status: Never smoker - Alcohol History How Often Do You Have a Drink Containing Alcohol: Never - Substance Use History Substance History: No History of Abuse - Travel History Recent Travel in the [facility] Within the Last 8 Weeks: No Recent Travel Out of the Country Within the Last 8 Weeks: No - Immunization History Tetanus Immunization: <5 Years Hx Influenza Vaccine This Season: Yes <Danielle Louis - Last Filed: 05/02/18 13:58> Medications and Allergies Active Medications: Active Medications Acetaminophen (Tylenol) 650 mg PO Q6H PRN PRN Reason: PAIN 1-10 AND/OR FEVER >101F Al Hydroxide/Mg Hydroxide (Milk Of Magnesia Liq) 30 ml PO Q12H PRN PRN Reason: Mild Constipation Albuterol (Duoneb Neb (Prn)) 1 ampul NEB Q2HR NEB PRN PRN Reason: WHEEZING Bisacodyl (Dulcolax Supp) 10 mg RECTAL DAILY PRN PRN Reason: SEVERE CONSITIPATION Chlorhexidine Gluconate (Chlorhexidine 2% Cloth) 3 pack TOPICAL DAILY@0400 PRN PRN Reason: Extra cloth needed Stop: 05/07/18 03:59 Chlorhexidine Gluconate (Chlorhexidine 2% Cloth) 3 pack TOPICAL DAILY@0400 LYNN Stop: 05/07/18 03:59 Last Admin: 05/02/18 04:12 Dose: 3 pack Sodium Chloride (Ns Inj) 250 mls @ 15 mls/hr IV.SIG ONCE LYNN Stop: 05/02/18 15:39 Last Admin: 05/02/18 03:14 Dose: 15 mls/hr Sodium Chloride (Ns Inj) 1,000 mls @ 0 mls/hr IV.SIG BOLUS [facility] Stop: 05/03/18 03:46 Last Infusion: 05/02/18 07:10 Dose: Infused Sodium Chloride (Ns Inj) 1,000 mls @ 154 mls/hr IV.CONT .Q6H30M [facility] Last Admin: 05/02/18 04:12 Dose: 154 mls/hr Metronidazole/Sodium Chloride (Flagyl 500 Mg Inj) 100 mls @ 100 mls/hr IV.SIG Q6H [facility] Last Admin: 05/02/18 09:46 Dose: 100 mls/hr Levofloxacin/Dextrose (Levaquin 750 Mg Premix Inj) 150 mls @ 100 mls/hr IV.SIG Q48H [facility] Lactulose (Lactulose Liq) 30 ml PO DAILY PRN PRN Reason: SEVERE CONSITIPATION Morphine Sulfate (Morphine Inj) 2 mg IV.PUSH Q2H PRN PRN Reason: PAIN SCALE 6 TO 10 Nystatin (Mycostatin Liq) 5 ml BUCCAL QID [facility] Last Admin: 05/02/18 09:46 Dose: 5 ml Ondansetron HCl (Zofran Inj) 4 mg IV.PUSH Q6H PRN PRN Reason: NAUSEA OR VOMITING Pantoprazole Sodium (Protonix Inj) 40 mg IV.PUSH Q12H [facility] Last Admin: 05/02/18 04:12 Dose: 40 mg Pravastatin Sodium (Pravachol) 40 mg PO HS LYNN Senna/Docusate Sodium (Maggie-Colace) 1 tab PO BID [facility] Last Admin: 05/02/18 09:47 Dose: 1 tab Sennosides (Senokot) 17.2 mg PO Q12H PRN PRN Reason: Moderate Constipation Sodium Chloride (Ns Flush) 2 ml IV.FLUSH PRN PRN PRN Reason: FLUSH AFTER USING IV ACCESS Sodium Chloride (Ns Flush) 2 ml IV.FLUSH BID [facility] Last Admin: 05/02/18 09:47 Dose: 2 ml Sodium Chloride (Ns Flush) 2 ml IV.FLUSH PRN PRN PRN Reason: FLUSH AFTER USING IV ACCESS Vitamin D (Vitamin D3) 2,000 unit PO DAILY [facility] Last Admin: 05/02/18 09:47 Dose: 2,000 unit <Danielle Louis - Last Filed: 05/02/18 13:58> Active Medications: Active Medications Acetaminophen (Tylenol) 650 mg PO Q6H PRN PRN Reason: PAIN 1-10 AND/OR FEVER >101F Al Hydroxide/Mg Hydroxide (Milk Of [place]) 30 ml PO Q12H PRN PRN Reason: Mild Constipation Albuterol (Duoneb Neb (Prn)) 1 ampul NEB Q2HR NEB PRN PRN Reason: WHEEZING Bisacodyl (Dulcolax Supp) 10 mg RECTAL DAILY PRN PRN Reason: SEVERE CONSITIPATION Chlorhexidine Gluconate (Chlorhexidine 2% Cloth) 3 pack TOPICAL DAILY@0400 PRN PRN Reason: Extra cloth needed Stop: 05/07/18 03:59 Chlorhexidine Gluconate (Chlorhexidine 2% Cloth) 3 pack TOPICAL DAILY@0400 [facility] Stop: 05/07/18 03:59 Last Admin: 05/03/18 03:40 Dose: 3 pack Sodium Chloride (Ns Inj) 1,000 mls @ 154 mls/hr IV.CONT .Q6H30M [facility] Last Admin: 05/03/18 12:34 Dose: 154 mls/hr Metronidazole/Sodium Chloride (Flagyl 500 Mg Inj) 100 mls @ 100 mls/hr IV.SIG Q6H [facility] Last Admin: 05/03/18 14:26 Dose: 100 mls/hr Levofloxacin/Dextrose (Levaquin 750 Mg Premix Inj) 150 mls @ 100 mls/hr IV.SIG Q48H [facility] Lactulose (Lactulose Liq) 30 ml PO DAILY PRN PRN Reason: SEVERE CONSITIPATION Morphine Sulfate (Morphine Inj) 2 mg IV.PUSH Q2H PRN PRN Reason: PAIN SCALE 6 TO 10 Nystatin (Mycostatin Liq) 5 ml BUCCAL QID [facility] Last Admin: 05/03/18 12:33 Dose: 5 ml Ondansetron HCl (Zofran Inj) 4 mg IV.PUSH Q6H PRN PRN Reason: NAUSEA OR VOMITING Pantoprazole Sodium (Protonix Inj) 40 mg IV.PUSH Q12H [facility] Last Admin: 05/03/18 15:13 Dose: 40 mg Pravastatin Sodium (Pravachol) 40 mg PO [facility] Last Admin: 05/02/18 20:32 Dose: 40 mg Senna/Docusate Sodium (Maggie-Colace) 1 tab PO BID [facility] Last Admin: 05/03/18 08:21 Dose: Not Given Sennosides (Senokot) 17.2 mg PO Q12H PRN PRN Reason: Moderate Constipation Sodium Chloride (Ns Flush) 2 ml IV.FLUSH BID [facility] Last Admin: 05/03/18 08:21 Dose: 2 ml Sodium Chloride (Ns Flush) 2 ml IV.FLUSH PRN PRN PRN Reason: FLUSH AFTER USING IV ACCESS Vitamin D (Vitamin D3) 2,000 unit PO DAILY [facility] Last Admin: 05/03/18 08:21 Dose: 2,000 unit <Brenden Sena E - Last Filed: 05/03/18 16:27> Allergies Allergy/AdvReac Type Severity Reaction Status Date / Time erythromycin base Allergy Diarrhea Verified 04/17/18 11:12 Home Medications Medication Instructions Recorded Confirmed Type aspirin [Aspir-Low] 81 mg PO DAILY 04/17/18 05/01/18 History cholecalciferol (vitamin D3) 2,000 unit PO DAILY 04/17/18 05/01/18 History [Vitamin D3] omeprazole 20 mg PO DAILY 04/17/18 05/01/18 History vit C,R-Zc-ndbor-lutein-zeaxan 1 tab PO BID 04/17/18 05/01/18 History [PreserVision AREDS 2] metoprolol tartrate 100 mg PO BID 05/01/18 05/01/18 History simvastatin 20 mg PO HS 05/01/18 05/01/18 History Exam Vital signs: Vital Signs 05/01/18 18:33 05/01/18 19:00 05/01/18 19:58 Temperature 98.3 F 98.2 F Pulse Rate 98 H 108 H 98 H Respiratory Rate 18 18 18 Blood Pressure 82/51 L 81/52 L 76/50 L Pulse Oximetry 96 98 05/01/18 21:30 05/01/18 21:40 05/01/18 21:54 Temperature 98.4 F Pulse Rate 102 H 96 H 94 H Respiratory Rate 20 18 20 Blood Pressure 88/62 L 81/50 L 94/51 L Pulse Oximetry 99 05/01/18 22:10 05/01/18 23:20 05/02/18 00:16 Temperature Pulse Rate 100 H 104 H 104 H Respiratory Rate 18 18 18 Blood Pressure 79/50 L 80/59 L 118/50 L Pulse Oximetry 05/02/18 00:30 05/02/18 01:30 05/02/18 01:45 Temperature 98.4 F 98.8 F Pulse Rate 98 H 98 H 94 H Respiratory Rate 20 18 20 Blood Pressure 109/56 L 90/50 L 98/62 L Pulse Oximetry 05/02/18 02:01 05/02/18 02:30 05/02/18 03:00 Temperature 98.0 F Pulse Rate 94 H 101 H 104 H Respiratory Rate 18 20 18 Blood Pressure 98/59 L 96/55 L 80/45 L Pulse Oximetry 100 99 100 05/02/18 03:33 05/02/18 03:52 05/02/18 04:00 Temperature 97.6 F 97.6 F 98.3 F Pulse Rate 99 H 101 H 100 H Respiratory Rate 19 20 24 Blood Pressure 97/53 L 84/56 L 94/54 L Pulse Oximetry 100 100 05/02/18 05:00 05/02/18 06:00 05/02/18 07:05 Temperature Pulse Rate 99 H 101 H Respiratory Rate 21 21 Blood Pressure 115/60 122/59 L Pulse Oximetry 100 100 100 Intake & Output 05/01/18 05/02/18 05/02/18 18:59 06:59 18:59 Intake Total 2770 / 2770 1400 / 1400 Output Total 300 / 300 Balance 2470 / 2470 1400 / 1400 Weight 105.687 kg 112.2 kg Intake: IV 2370 / 2370 1000 / 1000 Calcium Chloride Inj 2 GM In NS 120 / 120 Inj 100 ML @ 120 mls/hr IV.SIG ONCE ONE Rx#:[id number] Levaquin 750 mg Premix Inj 150 150 / 150 ML @ 100 mls/hr IV.SIG ONCE ONE Rx#:[id number] NS Inj 1,000 ML @ Wide Open IV. 1999 / 1999 1000 / 1000 SIG BOLUS LYNN Rx#:[id number] Flagyl 500 MG Inj 100 ML @ 100 100 / 100 mls/hr IV.SIG ONCE ONE Rx#: [id number] Intake (Blood Product) Amt 400 / 400 400 / 400 Rbc As-3 Leukoreduced Unit 0 / 0 400 / 400 [id number] Rbc As-3 Leukoreduced Unit 400 / 400 [id number] Output: Urine 300 / 300 Other: # Voids 2 Date of Last Bowel Movement 05/02/18 # Bowel Movements 1 Weight On Admission 112.2 kg - Constitutional no acute distress - Routine HEENT Exam Head: Present: normocephalic - Routine Neck Exam Present: supple - Routine Chest/Breast/Axilla Exam Chest wall: Absent: tenderness - Routine Respiratory Exam Present: CTA bilaterally. Absent: accessory muscle use, respiratory distress - Routine Cardiovascular Exam Present: RRR - Routine Abdominal Exam Present: soft, normoactive bowel sounds. Absent: tenderness, distended, guarding, firm - Routine Extremities Exam Present: pulses intact. Absent: edema - Routine Skin Exam Present: dry, warm - Routine Neurological Exam Present: alert, oriented X3 <Louis,Danielle - Last Filed: 05/02/18 13:58> Vital signs: Vital Signs 05/02/18 17:00 05/02/18 18:00 05/02/18 18:14 Temperature Pulse Rate 111 H 113 H 112 H Respiratory Rate 24 22 24 Blood Pressure 136/70 122/56 L Pulse Oximetry 100 05/02/18 19:00 05/02/18 20:00 05/02/18 21:00 Temperature 98.3 F 98.3 F Pulse Rate 112 H 111 H 107 H Respiratory Rate 26 H 32 H 25 H Blood Pressure 123/68 113/64 Pulse Oximetry 100 97 100 05/02/18 21:01 05/02/18 22:00 05/02/18 23:00 Temperature Pulse Rate 109 H 109 H 108 H Respiratory Rate 25 H 22 22 Blood Pressure 137/84 116/58 L 110/57 L Pulse Oximetry 100 100 100 05/03/18 00:00 05/03/18 01:00 05/03/18 02:00 Temperature 98.1 F Pulse Rate 108 H 108 H 107 H Respiratory Rate 23 21 21 Blood Pressure 109/59 L 112/58 L 113/56 L Pulse Oximetry 100 100 95 05/03/18 03:00 05/03/18 04:00 05/03/18 05:00 Temperature 98 F Pulse Rate 106 H 108 H 110 H Respiratory Rate 22 19 22 Blood Pressure 111/58 L 112/64 118/60 Pulse Oximetry 100 100 90 L 05/03/18 06:00 05/03/18 07:00 05/03/18 08:00 Temperature 97.3 F L Pulse Rate 103 H 111 H 107 H Respiratory Rate 20 21 24 Blood Pressure 115/55 L 116/65 108/73 Pulse Oximetry 100 100 100 05/03/18 08:03 05/03/18 09:00 05/03/18 12:00 Temperature 97.6 F Pulse Rate 102 H 109 H Respiratory Rate 25 H Blood Pressure 105/58 L Pulse Oximetry 99 91 L Intake & Output 05/02/18 05/03/18 05/03/18 18:59 06:59 18:59 Intake Total 3100 / 3100 3550 / 3550 2099 / 2099 Output Total 225 / 225 500 / 500 Balance 2875 / 2875 3050 / 3050 2099 / 2099 Weight 114.5 kg Intake: IV 2099 / 2099 3550 / 3550 2099 / 2099 NS Inj 1,000 ML @ 154 mls/hr IV 1000 / 1000 3000 / 3000 1000 / 1000 .CONT .Q6H30M LYNN Rx#:[id number] LR 1000 mL Inj 1,000 ML @ 333 1000 / 1000 mls/hr IV.SIG BOLUS ONE Rx#: [id number] NS Inj 1,000 ML @ Wide Open IV. 1000 / 1000 SIG BOLUS LYNN Rx#:[id number] Flagyl 500 MG Inj 100 ML @ 100 100 / 100 300 / 300 100 / 100 mls/hr IV.SIG Q6H LYNN Rx#: [id number] Oral 600 / 600 0 / 0 Intake (Blood Product) Amt 400 / 400 Rbc As-3 Leukoreduced Unit 400 / 400 [id number] Output: Urine 500 / 500 Stool 225 / 225 Other: # Voids 2 Date of Last Bowel Movement 05/02/18 05/03/18 05/03/18 # Bowel Movements 1 2 <Brenden Sena E - Last Filed: 05/03/18 16:27> Results - Labs CBC & Chem 7: 05/02/18 10:08 05/02/18 10:08 Labs: Laboratory Results - last 24 hr 05/01/18 05/01/18 05/01/18 19:30 19:40 19:40 CBC w Diff Slide review pending WBC 7.8 RBC 3.36 L Hgb 9.8 L Hct 28.2 L MCV 84.0 MCH 29.1 MCHC 34.7 RDW 14.9 Plt Count 478 H D MPV 7.9 WBC Differential Manual diff final Seg Neuts % (Manual) 37 Band Neuts % (Manual) 24 H Lymphocytes % (Manual) 26 Monocytes % (Manual) 9 H Eosinophils % (Manual) 1 Metamyelocytes % (Man) 3 H Abs Neuts (Manual) 5.0 Differential Comment . Dohle Bodies Present H Platelet Estimate High H Platelet Morphology Normal PT INR APTT Sodium Potassium Chloride Carbon Dioxide Anion Gap BUN Creatinine Estimated GFR Random Glucose Calcium Prot Corrected Calcium Total Bilirubin AST ALT Alkaline Phosphatase Total Protein Albumin Lipase Ur Collection Type Urine Color Urine Clarity Urine pH Ur Specific [place] Urine Protein Urine Glucose (UA) Urine Ketones Urine Occult Blood Urine Nitrate Urine Bilirubin Urine Urobilinogen Ur Leukocyte Esterase Urine RBC Urine WBC Ur Squamous Epith Cells Urine Bacteria Micro UA Comment Ur Microscopic Review Urine Culture Comments Nasal Screen MRSA (PCR) Blood Type A Negative Blood Type Recheck Required Antibody Screen Negative MTS Gel Crossmatch See Detail 05/01/18 05/01/18 05/01/18 21:50 21:50 21:55 CBC w Diff WBC 6.2 RBC 2.89 L Hgb 8.2 L Hct 24.5 L MCV 84.8 MCH 28.4 MCHC 33.5 RDW 14.7 Plt Count 493 H MPV 7.3 WBC Differential Seg Neuts % (Manual) Band Neuts % (Manual) Lymphocytes % (Manual) Monocytes % (Manual) Eosinophils % (Manual) Metamyelocytes % (Man) Abs Neuts (Manual) Differential Comment Dohle Bodies Platelet Estimate Platelet Morphology PT 22.4 H INR 2.2 APTT 57.8 H Sodium 143 Potassium 3.5 Chloride 117 H Carbon Dioxide 15.5 L Anion Gap 11 BUN 34 H Creatinine 2.60 H Estimated GFR 18 L Random Glucose 89 Calcium 6.1 L* Prot Corrected Calcium 7.5 L Total Bilirubin 0.3 AST 20 ALT 9 L Alkaline Phosphatase 40 L Total Protein 4.3 L Albumin 0.9 L Lipase 143 Ur Collection Type Urine Color Urine Clarity Urine pH Ur Specific [place] Urine Protein Urine Glucose (UA) Urine Ketones Urine Occult Blood Urine Nitrate Urine Bilirubin Urine Urobilinogen Ur Leukocyte Esterase Urine RBC Urine WBC Ur Squamous Epith Cells Urine Bacteria Micro UA Comment Ur Microscopic Review Urine Culture Comments Nasal Screen MRSA (PCR) Blood Type Blood Type Recheck Antibody Screen MTS Gel Crossmatch 05/01/18 05/02/18 23:00 03:20 CBC w Diff WBC RBC Hgb Hct MCV MCH MCHC RDW Plt Count MPV WBC Differential Seg Neuts % (Manual) Band Neuts % (Manual) Lymphocytes % (Manual) Monocytes % (Manual) Eosinophils % (Manual) Metamyelocytes % (Man) Abs Neuts (Manual) Differential Comment Dohle Bodies Platelet Estimate Platelet Morphology PT INR APTT Sodium Potassium Chloride Carbon Dioxide Anion Gap BUN Creatinine Estimated GFR Random Glucose Calcium Prot Corrected Calcium Total Bilirubin AST ALT Alkaline Phosphatase Total Protein Albumin Lipase Ur Collection Type Cath Urine Color Amy H Urine Clarity Slightly cloudy Urine pH 5.5 Ur Specific [place] 1.020 Urine Protein 100 H Urine Glucose (UA) Negative Urine Ketones Negative Urine Occult Blood Large H Urine Nitrate Positive H Urine Bilirubin Negative Urine Urobilinogen 0.2 Ur Leukocyte Esterase Negative Urine RBC 51-189 H Urine WBC 0-5 Ur Squamous Epith Cells 0-5 Urine Bacteria Few H Micro UA Comment Cath-culture ind Ur Microscopic Review Microscopic reviewed Urine Culture Comments Cath-cult indicated Nasal Screen MRSA (PCR) Not detected Blood Type Blood Type Recheck Antibody Screen MTS Gel Crossmatch - Imaging Impressions Abdomen/Pelvis CT 05/02/18 00:10 CONCLUSION: 1. Possible distal colonic diverticulitis or colitis with findings most suggestive of associated ileus. 2. Persistent right-sided hydronephrosis with proximal right ureteral stone. 3. Interval resolution of left-sided hydronephrosis 4. Other abdominal and pelvic findings are grossly stable. <Danielle Louis - Last Filed: 05/02/18 13:58> - Labs CBC & Chem 7: 05/03/18 09:33 05/03/18 04:12 Labs: Laboratory Results - last 24 hr 05/02/18 05/02/18 05/03/18 16:15 22:06 04:12 WBC 5.9 RBC 3.73 L Hgb 11.1 L 10.9 L 10.7 L Hct 32.9 L 32.8 L 32.3 L MCV 86.5 MCH 28.6 MCHC 33.1 RDW 15.3 Plt Count 435 MPV 6.9 L Prelim Diff (Auto) Slide review pending Neut % (Auto) 61.9 Lymph % (Auto) 25.1 [place] % (Auto) 11.0 H Eos % (Auto) 1.6 Baso % (Auto) 0.4 Neut # (Auto) 3.7 Lymph # (Auto) 1.5 [place] # (Auto) 0.7 Eos # (Auto) 0.1 Baso # (Auto) 0.0 WBC Differential Manual diff final Seg Neuts % (Manual) 40 Band Neuts % (Manual) 15 H Lymphocytes % (Manual) 28 Monocytes % (Manual) 9 H Metamyelocytes % (Man) 4 H Myelocytes % (Man) 2 H Promyelocytes % (Man) 2 H Abs Neuts (Manual) 3.7 Nucleated RBCs/100 WBC 3 H Differential Comment . Toxic Granulation 2+ H Dohle Bodies Present H Platelet Estimate High H Platelet Morphology Clumped H Dimorphic RBCs Present H PT INR APTT Sodium Potassium Chloride Carbon Dioxide Anion Gap BUN Creatinine Estimated GFR Random Glucose Calcium Phosphorus Magnesium Total Bilirubin AST ALT Alkaline Phosphatase Total Protein Albumin 05/03/18 05/03/18 05/03/18 04:12 04:12 09:33 WBC RBC Hgb 10.8 L Hct 33.4 L MCV MCH MCHC RDW Plt Count MPV Prelim Diff (Auto) Neut % (Auto) Lymph % (Auto) [place] % (Auto) Eos % (Auto) Baso % (Auto) Neut # (Auto) Lymph # (Auto) [place] # (Auto) Eos # (Auto) Baso # (Auto) WBC Differential Seg Neuts % (Manual) Band Neuts % (Manual) Lymphocytes % (Manual) Monocytes % (Manual) Metamyelocytes % (Man) Myelocytes % (Man) Promyelocytes % (Man) Abs Neuts (Manual) Nucleated RBCs/100 WBC Differential Comment Toxic Granulation Dohle Bodies Platelet Estimate Platelet Morphology Dimorphic RBCs PT 18.4 H INR 1.8 APTT 42.9 H Sodium 144 Potassium 3.7 Chloride 118 H Carbon Dioxide 15.8 L Anion Gap 10 BUN 33 H Creatinine 2.58 H Estimated GFR 18 L Random Glucose 77 Calcium 7.7 L Phosphorus 3.1 Magnesium 2.3 Total Bilirubin 0.4 AST 20 ALT 9 L Alkaline Phosphatase 55 Total Protein 5.0 L Albumin 1.2 L <Brenden Sena - Last Filed: 05/03/18 16:27> Assessment and Plan (1) Acute blood loss anemia Status: Acute Code(s): D62 - Acute posthemorrhagic anemia - Plan Mrs. Hackett is a 72-year-old female patient who presented to the emergency room last evening with report of bright red blood per rectum patient has history of acute renal failure as well as atrial fibrillation and hypercholesterolemia. Patient was taking Eliquis for atrial fibrillation. Patient states that she has had several weeks of loose green stool and bright red blood per rectum was noted by staff at rehab center last evening. Patient reported feeling lightheaded and weak over the last several weeks but denies same at this time. Patient denies abdominal pain, nausea or vomiting. Patient denies shortness of breath at rest or on exertion. Patient states her father on 2017 and that she began to have loose stools with nausea and vomiting and weakness at that time. Patient denies ever having had a colonoscopy or upper endoscopy. Patient states " I watched my father suffer through the endoscopies that he underwent." Patient states that she has always declined to have any endoscopy procedures performed and her primary care physician has her do yearly Cologuard tests. Patient states that these tests have always been negative for any blood present in stool. Last Cologuard test was 1 year ago per patient. Patient reports hx of GERD for which she takes Protonix that controls symptoms. States positive family history for colon cancer, maternal aunt. Patient denies any alcohol usage patient denies smoking and denies NSAID use. Denies any known history of liver disease for herself or family members. She states that she has had bacterial infections in her colon, "many times and they always give me Cipro and it works." I discussed diet recommendations to reduce the incidence of diverticulitis and patient verbalized understanding. Upon arrival to [facility] patient's labs revealed --> Anemia WBC 7.8 RBC 3.36 hemoglobin 9.8 hematocrit 28.2. INR 2.2 total bilirubin 0.3 AST 20 ALT 9 alk phos 40 albumin 0.9. Repeat CBC done at 05/01/2018 at 2155 hemoglobin 8.2 hematocrit 24.5. Patient was transfused with 2 units of packed RBCs. CT scan of abdomen and pelvis done and revealed. Possible distal colonic diverticulitis or colitis with findings most suggestive of associated ileus. Persistent right- sided hydronephrosis with proximal right ureteral stone. Interval resolution of left-sided hydronephrosis. Other abdominal and pelvic findings are grossly stable. At this time patient is receiving IV Flagyl and Levaquin. Eliquis is on hold. This practice has been consulted to evaluate and monitor GI bleeding.Pt states she does not want to have a colonoscopy done at this time. Plan: -Maintain NPO status -Continue IV hydration -Continue Flagyl and Levaquin -Continue Protonix -Monitor H/H -Transfuse as needed -Continue to hold Eliquis -Supportive care -Further recommendations to follow This patient has been seen by myself and Dr. Sena and this note is written on his behalf. <Danielle Louis - Last Filed: 05/02/18 13:58> (1) Acute blood loss anemia Status: Acute Code(s): D62 - Acute posthemorrhagic anemia - Attending Attestation Patient seen and examined Agree with above Continue with current supportive care Monitor labs <Brenden Sena - Last Filed: 05/03/18 16:27>
[2018-05-02 10:39] LABS: Baso % (Auto) 0.3 % (0.0-2.0); Eos % (Auto) 0.8 % (0.0-4.0); Hematocrit 31.7 % (35.0-46.0); Hemoglobin 10.6 gm/dL (11.6-15.3); Lymph # (Auto) 1.1 th/mm3 (1.0-4.8); Lymph % (Auto) 20.7 % (9.0-44.0); Mean Corpuscular HGB Conc 33.4 % (32.0-36.0); Mean Corpuscular Hemoglobin 29.2 pg (27.0-34.0); Mean Corpuscular Volume 87.6 fL (80.0-100.0); Mono # (Auto) 0.6 th/mm3 (0.0-0.9); Neut # (Auto) 3.7 th/mm3 (1.8-7.7); Neut % (Auto) 67.2 % (16.0-70.0); Platelet Count 438 th/mm3 (150-450); Red Blood Count 3.62 mil/mm3 (4.00-5.30); Red Cell Distribution Width 15.1 % (11.6-17.2); White Blood Count 5.5 th/mm3 (4.0-11.0)
[2018-05-02 10:54] LABS: Alanine Aminotransferase 10 U/L (10-53); Albumin 1.1 g/dL (3.4-5.0); Anion Gap 10 meq/L (5-15); Aspartate Aminotransferase 18 U/L (15-37); Blood Urea Nitrogen 34 mg/dL (7-18); Carbon Dioxide 16.5 meq/L (21.0-32.0); Chloride 117 meq/L (98-107); Glomerular Filtration Rate 18 mL/min (>89); Glucose,Random 87 mg/dL (74-106); Magnesium 2.4 mg/dL (1.5-2.5); Potassium 3.7 meq/L (3.5-5.1); Sodium 143 meq/L (136-145)
[2018-05-02 10:56] LABS: Alkaline Phosphatase 50 U/L (45-117); Total Protein 4.9 g/dL (6.4-8.2)
[2018-05-02 11:00] LABS: Activated Partial Thrombo Time 41.8 sec (24.3-30.1); INR 1.8 Ratio; Prothrombin Time 18.4 sec (9.8-11.6)
[2018-05-02 11:50] LABS: Lymphocytes 21 % (9-44); Metamyelocytes 9 % (0-1); Monocytes 5 % (0-8); Myelocytes 3 % (0-0); Promyelocyte 2 % (0-0); Tallied Nucleated RBC 1 (0-0)
[2018-05-02 11:51] LABS: Platelet Morphology Normal (Normal); Toxic Granulation 2+
[2018-05-02 16:30] LABS: Hematocrit 32.9 % (35.0-46.0); Hemoglobin 11.1 gm/dL (11.6-15.3)
[2018-05-02 22:12] LABS: Hematocrit 32.8 % (35.0-46.0); Hemoglobin 10.9 gm/dL (11.6-15.3)
[2018-05-03] MEDS: Chlorhexidine Gluconate 2% 1 Pack (2 Cloths) TOPICAL SCH (03:40)
[2018-05-03] MEDS: Pantoprazole Inj 40 MG Vial IV.PUSH SCH ×2 (03:40→15:13)
[2018-05-03 04:48] LABS: Baso % (Auto) 0.4 % (0.0-2.0); Eos # (Auto) 0.1 th/mm3 (0.0-0.4); Eos % (Auto) 1.6 % (0.0-4.0); Hematocrit 32.3 % (35.0-46.0); Hemoglobin 10.7 gm/dL (11.6-15.3); Lymph # (Auto) 1.5 th/mm3 (1.0-4.8); Lymph % (Auto) 25.1 % (9.0-44.0); Mean Corpuscular HGB Conc 33.1 % (32.0-36.0); Mean Corpuscular Hemoglobin 28.6 pg (27.0-34.0); Mean Corpuscular Volume 86.5 fL (80.0-100.0); Mean Platelet Volume 6.9 fL (7.0-11.0); Mono # (Auto) 0.7 th/mm3 (0.0-0.9); Neut # (Auto) 3.7 th/mm3 (1.8-7.7); Neut % (Auto) 61.9 % (16.0-70.0); Platelet Count 435 th/mm3 (150-450); Red Blood Count 3.73 mil/mm3 (4.00-5.30); Red Cell Distribution Width 15.3 % (11.6-17.2); White Blood Count 5.9 th/mm3 (4.0-11.0)
[2018-05-03] MEDS: Sod Chloride 0.9% Inj 1,000 ML IV.CONT SCH ×3 (04:54→19:24)
[2018-05-03 05:08] LABS: Activated Partial Thrombo Time 42.9 sec (24.3-30.1); INR 1.8 Ratio; Prothrombin Time 18.4 sec (9.8-11.6)
[2018-05-03 05:10] LABS: Albumin 1.2 g/dL (3.4-5.0); Anion Gap 10 meq/L (5-15); Aspartate Aminotransferase 20 U/L (15-37); Blood Urea Nitrogen 33 mg/dL (7-18); Calcium 7.7 mg/dL (8.5-10.1); Carbon Dioxide 15.8 meq/L (21.0-32.0); Chloride 118 meq/L (98-107); Glomerular Filtration Rate 18 mL/min (>89); Glucose,Random 77 mg/dL (74-106); Magnesium 2.3 mg/dL (1.5-2.5); Potassium 3.7 meq/L (3.5-5.1); Sodium 144 meq/L (136-145)
[2018-05-03 05:13] LABS: Alanine Aminotransferase 9 U/L (10-53); Alkaline Phosphatase 55 U/L (45-117); Phosphorus 3.1 mg/dL (2.5-4.9)
[2018-05-03 07:46] LABS: Lymphocytes 28 % (9-44); Metamyelocytes 4 % (0-1); Monocytes 9 % (0-8); Myelocytes 2 % (0-0); Promyelocyte 2 % (0-0); Tallied Nucleated RBC 3 (0-0)
[2018-05-03 07:47] LABS: Dimorphic RBC Present; Dohle Bodies Present; Platelet Morphology Clumped (Normal); Toxic Granulation 2+
[2018-05-03] MEDS: Nystatin Liq 500,000 UNIT/5 ML UDC BUCCAL SCH ×4 (08:20→20:01)
[2018-05-03] MEDS: Senna/Docusate Sodium 8.6/50 MG Tablet PO SCH ×2 (08:21→20:01)
[2018-05-03 09:52] LABS: Hematocrit 33.4 % (35.0-46.0); Hemoglobin 10.8 gm/dL (11.6-15.3)
--- NOTE | 2018-05-03 11:01 | P.PN ---
Subjective Interval history: In bed appears in nad HGB is stable and patient says she diod not have any BM and no rectal bleeding No fever or chills No n/v/d/c. Physical Exam Vital signs: Vital Signs 05/02/18 11:00 05/02/18 11:52 05/02/18 12:00 Temperature Pulse Rate 107 H 107 H 109 H Respiratory Rate 26 H 22 30 H Blood Pressure 115/62 121/62 Pulse Oximetry 100 100 05/02/18 12:23 05/02/18 12:30 05/02/18 13:00 Temperature Pulse Rate 109 H 109 H 109 H Respiratory Rate 28 H 30 H 30 H Blood Pressure 115/64 121/62 130/61 Pulse Oximetry 05/02/18 14:00 05/02/18 14:01 05/02/18 15:00 Temperature Pulse Rate 110 H 114 H 110 H Respiratory Rate 26 H 23 28 H Blood Pressure 134/74 Pulse Oximetry 05/02/18 15:01 05/02/18 15:55 05/02/18 16:00 Temperature Pulse Rate 110 H 111 H 112 H Respiratory Rate 25 H 24 27 H Blood Pressure 89/43 L 137/65 134/72 Pulse Oximetry 05/02/18 17:00 05/02/18 18:00 05/02/18 18:14 Temperature Pulse Rate 111 H 113 H 112 H Respiratory Rate 24 22 24 Blood Pressure 136/70 122/56 L Pulse Oximetry 100 05/02/18 19:00 05/02/18 20:00 05/02/18 21:00 Temperature 98.3 F 98.3 F Pulse Rate 112 H 111 H 107 H Respiratory Rate 26 H 32 H 25 H Blood Pressure 123/68 113/64 Pulse Oximetry 100 97 100 05/02/18 21:01 05/02/18 22:00 05/02/18 23:00 Temperature Pulse Rate 109 H 109 H 108 H Respiratory Rate 25 H 22 22 Blood Pressure 137/84 116/58 L 110/57 L Pulse Oximetry 100 100 100 05/03/18 00:00 05/03/18 01:00 05/03/18 02:00 Temperature 98.1 F Pulse Rate 108 H 108 H 107 H Respiratory Rate 23 21 21 Blood Pressure 109/59 L 112/58 L 113/56 L Pulse Oximetry 100 100 95 05/03/18 03:00 05/03/18 04:00 05/03/18 05:00 Temperature 98 F Pulse Rate 106 H 108 H 110 H Respiratory Rate 22 19 22 Blood Pressure 111/58 L 112/64 118/60 Pulse Oximetry 100 100 90 L 05/03/18 06:00 05/03/18 07:00 05/03/18 08:00 Temperature 97.3 F L Pulse Rate 103 H 111 H 107 H Respiratory Rate 20 21 24 Blood Pressure 115/55 L 116/65 108/73 Pulse Oximetry 100 100 100 05/03/18 08:03 05/03/18 09:00 Temperature Pulse Rate 102 H Respiratory Rate Blood Pressure Pulse Oximetry 99 Intake & Output 05/02/18 05/03/18 05/03/18 18:59 06:59 18:59 Intake Total 3100 / 3100 3550 / 3550 Output Total 225 / 225 500 / 500 Balance 2875 / 2875 3050 / 3050 Weight 114.5 kg Intake: IV 2100 / 2100 3550 / 3550 NS Inj 1,000 ML @ 154 mls/hr IV 1000 / 1000 3000 / 3000 .CONT .Q6H30M [facility] Rx#:[id number] NS Inj 1,000 ML @ Wide Open IV. 1000 / 1000 SIG BOLUS [facility] Rx#:[id number] Flagyl 500 MG Inj 100 ML @ 100 100 / 100 300 / 300 mls/hr IV.SIG Q6H [facility] Rx#: [id number] Oral 600 / 600 0 / 0 Intake (Blood Product) Amt 400 / 400 Rbc As-3 Leukoreduced Unit 400 / 400 [id number] Output: Urine 500 / 500 Stool 225 / 225 Other: # Voids 2 Date of Last Bowel Movement 05/02/18 05/03/18 05/03/18 # Bowel Movements 1 2 Narrative: GENERAL: Pleasant 72 yo F, morbidly obese, in nad SKIN: Warm and dry. HEAD: Normocephalic. EYES: No scleral icterus. No injection or drainage. NECK: Supple, trachea midline. No JVD or lymphadenopathy. CARDIOVASCULAR: Regular rate and rhythm without murmurs, gallops, or rubs. RESPIRATORY: Breath sounds equal bilaterally. No accessory muscle use. GASTROINTESTINAL: Abdomen soft, obese, non-tender, nondistended. MUSCULOSKELETAL: No cyanosis, or edema. BACK: Nontender without obvious deformity. No CVA tenderness. Results - Labs CBC & Chem 7: 05/03/18 09:33 05/03/18 04:12 Laboratory Results - last 24 hr 05/02/18 05/02/18 05/02/18 10:08 10:08 10:08 WBC RBC Hgb Hct MCV MCH MCHC RDW Plt Count MPV Prelim Diff (Auto) Neut % (Auto) Lymph % (Auto) [place] % (Auto) Eos % (Auto) Baso % (Auto) Neut # (Auto) Lymph # (Auto) [place] # (Auto) Eos # (Auto) Baso # (Auto) WBC Differential Manual diff final Seg Neuts % (Manual) 25 Band Neuts % (Manual) 35 H Lymphocytes % (Manual) 21 Monocytes % (Manual) 5 Metamyelocytes % (Man) 9 H Myelocytes % (Man) 3 H Promyelocytes % (Man) 2 H Abs Neuts (Manual) 4.1 Nucleated RBCs/100 WBC 1 H Differential Comment Toxic Granulation 2+ H Dohle Bodies Platelet Estimate High H Platelet Morphology Normal Dimorphic RBCs PT 18.4 H INR 1.8 APTT 41.8 H D Sodium 143 Potassium 3.7 Chloride 117 H Carbon Dioxide 16.5 L Anion Gap 10 BUN 34 H Creatinine 2.67 H Estimated GFR 18 L Random Glucose 87 Calcium 8.0 L D Phosphorus 3.0 Magnesium 2.4 Total Bilirubin 0.4 AST 18 ALT 10 Alkaline Phosphatase 50 Total Protein 4.9 L D Albumin 1.1 L 05/02/18 05/02/18 05/03/18 16:15 22:06 04:12 WBC 5.9 RBC 3.73 L Hgb 11.1 L 10.9 L 10.7 L Hct 32.9 L 32.8 L 32.3 L MCV 86.5 MCH 28.6 MCHC 33.1 RDW 15.3 Plt Count 435 MPV 6.9 L Prelim Diff (Auto) Slide review pending Neut % (Auto) 61.9 Lymph % (Auto) 25.1 [place] % (Auto) 11.0 H Eos % (Auto) 1.6 Baso % (Auto) 0.4 Neut # (Auto) 3.7 Lymph # (Auto) 1.5 [place] # (Auto) 0.7 Eos # (Auto) 0.1 Baso # (Auto) 0.0 WBC Differential Manual diff final Seg Neuts % (Manual) 40 Band Neuts % (Manual) 15 H Lymphocytes % (Manual) 28 Monocytes % (Manual) 9 H Metamyelocytes % (Man) 4 H Myelocytes % (Man) 2 H Promyelocytes % (Man) 2 H Abs Neuts (Manual) 3.7 Nucleated RBCs/100 WBC 3 H Differential Comment . Toxic Granulation 2+ H Dohle Bodies Present H Platelet Estimate High H Platelet Morphology Clumped H Dimorphic RBCs Present H PT INR APTT Sodium Potassium Chloride Carbon Dioxide Anion Gap BUN Creatinine Estimated GFR Random Glucose Calcium Phosphorus Magnesium Total Bilirubin AST ALT Alkaline Phosphatase Total Protein Albumin 05/03/18 05/03/18 05/03/18 04:12 04:12 09:33 WBC RBC Hgb 10.8 L Hct 33.4 L MCV MCH MCHC RDW Plt Count MPV Prelim Diff (Auto) Neut % (Auto) Lymph % (Auto) [place] % (Auto) Eos % (Auto) Baso % (Auto) Neut # (Auto) Lymph # (Auto) [place] # (Auto) Eos # (Auto) Baso # (Auto) WBC Differential Seg Neuts % (Manual) Band Neuts % (Manual) Lymphocytes % (Manual) Monocytes % (Manual) Metamyelocytes % (Man) Myelocytes % (Man) Promyelocytes % (Man) Abs Neuts (Manual) Nucleated RBCs/100 WBC Differential Comment Toxic Granulation Dohle Bodies Platelet Estimate Platelet Morphology Dimorphic RBCs PT 18.4 H INR 1.8 APTT 42.9 H Sodium 144 Potassium 3.7 Chloride 118 H Carbon Dioxide 15.8 L Anion Gap 10 BUN 33 H Creatinine 2.58 H Estimated GFR 18 L Random Glucose 77 Calcium 7.7 L Phosphorus 3.1 Magnesium 2.3 Total Bilirubin 0.4 AST 20 ALT 9 L Alkaline Phosphatase 55 Total Protein 5.0 L Albumin 1.2 L Microbiology 05/01/18 23:00 Catheterized Urine Urine Culture - Preliminary Results Pending Assessment and Plan - Plan Acute GI bleed -N.p.o. -Hold aspirin, hold Eliquis -Protonix IV twice daily -IV fluid resuscitation -Transfuse PRBCs to keep hemoglobin above 7 -Gastroenterology consultation. Patient is refusing however EGD and colonoscopy and wants to eat will advance diet to [facility] and if no procedures will continue to advance diet as tolerated -PCC not available at [place] at this time Anemia -Due to above -Series of H&H -Transfuse to keep hemoglobin above 7 - so far H/H is stable Atrial fibrillation -Rate controlled -Hold metoprolol due to borderline hypotension -Hold liquids due to GI bleed -Continue telemetry Dyslipidemia -Pravastatin Diverticulitis - Metronidazole - Levofloxacin Acute kidney injury -Volume loss -Dehydration -Aggressive IV fluid resuscitation -Strict I's and O -Monitor electrolytes and creatinine DVT GI prophylaxis -Teds SCDs -No pharmacological DVT prophylaxis due to GI bleed -Protonix IV twice daily DC plan: Likely goes back to SNF. Poss DC tomorrow if no procedures, no more bleeding and if H/H stays stable. Will need clearance form GI specialist and also recommendations when to restart anticoagulation.
--- NOTE | 2018-05-03 12:09 | P.PNGI ---
Subjective Interval history: Patient is resting in the bed continues to be in the intensive care setting Morbid obesity denies any current nausea vomiting, abdominal pain patient states diarrhea is more controlled Tachycardic heart rate 105 <Maddison Lai - Last Filed: 05/03/18 12:10> Physical Exam Vital signs: Vital Signs 05/02/18 12:23 05/02/18 12:30 05/02/18 13:00 Temperature Pulse Rate 109 H 109 H 109 H Respiratory Rate 28 H 30 H 30 H Blood Pressure 115/64 121/62 130/61 Pulse Oximetry 05/02/18 14:00 05/02/18 14:01 05/02/18 15:00 Temperature Pulse Rate 110 H 114 H 110 H Respiratory Rate 26 H 23 28 H Blood Pressure 134/74 Pulse Oximetry 05/02/18 15:01 05/02/18 15:55 05/02/18 16:00 Temperature Pulse Rate 110 H 111 H 112 H Respiratory Rate 25 H 24 27 H Blood Pressure 89/43 L 137/65 134/72 Pulse Oximetry 05/02/18 17:00 05/02/18 18:00 05/02/18 18:14 Temperature Pulse Rate 111 H 113 H 112 H Respiratory Rate 24 22 24 Blood Pressure 136/70 122/56 L Pulse Oximetry 100 05/02/18 19:00 05/02/18 20:00 05/02/18 21:00 Temperature 98.3 F 98.3 F Pulse Rate 112 H 111 H 107 H Respiratory Rate 26 H 32 H 25 H Blood Pressure 123/68 113/64 Pulse Oximetry 100 97 100 05/02/18 21:01 05/02/18 22:00 05/02/18 23:00 Temperature Pulse Rate 109 H 109 H 108 H Respiratory Rate 25 H 22 22 Blood Pressure 137/84 116/58 L 110/57 L Pulse Oximetry 100 100 100 05/03/18 00:00 05/03/18 01:00 05/03/18 02:00 Temperature 98.1 F Pulse Rate 108 H 108 H 107 H Respiratory Rate 23 21 21 Blood Pressure 109/59 L 112/58 L 113/56 L Pulse Oximetry 100 100 95 05/03/18 03:00 05/03/18 04:00 05/03/18 05:00 Temperature 98 F Pulse Rate 106 H 108 H 110 H Respiratory Rate 22 19 22 Blood Pressure 111/58 L 112/64 118/60 Pulse Oximetry 100 100 90 L 05/03/18 06:00 05/03/18 07:00 05/03/18 08:00 Temperature 97.3 F L Pulse Rate 103 H 111 H 107 H Respiratory Rate 20 21 24 Blood Pressure 115/55 L 116/65 108/73 Pulse Oximetry 100 100 100 05/03/18 08:03 05/03/18 09:00 Temperature Pulse Rate 102 H Respiratory Rate Blood Pressure Pulse Oximetry 99 Intake & Output 05/02/18 05/03/18 05/03/18 18:59 06:59 18:59 Intake Total 3100 / 3100 3550 / 3550 Output Total 225 / 225 500 / 500 Balance 2875 / 2875 3050 / 3050 Weight 114.5 kg Intake: IV 2100 / 2100 3550 / 3550 NS Inj 1,000 ML @ 154 mls/hr IV 1000 / 1000 3000 / 3000 .CONT .Q6H30M [facility] Rx#:[id number] NS Inj 1,000 ML @ Wide Open IV. 1000 / 1000 SIG BOLUS [facility] Rx#:[id number] Flagyl 500 MG Inj 100 ML @ 100 100 / 100 300 / 300 mls/hr IV.SIG Q6H [facility] Rx#: [id number] Oral 600 / 600 0 / 0 Intake (Blood Product) Amt 400 / 400 Rbc As-3 Leukoreduced Unit 400 / 400 [id number] Output: Urine 500 / 500 Stool 225 / 225 Other: # Voids 2 Date of Last Bowel Movement 05/02/18 05/03/18 05/03/18 # Bowel Movements 1 2 - Constitutional mild distress, morbidly obese - Routine HEENT Exam Head: Present: normocephalic ENT: Present: mucous membranes dry - Routine Neck Exam Present: supple - Routine Respiratory Exam Present: accessory muscle use (Even unlabored at rest) - Routine Cardiovascular Exam Present: S1, S2, tachycardia (105) - Routine Abdominal Exam Present: soft (Large, obese, mild distention,) - Routine Skin Exam Present: intact <Maddison Lai - Last Filed: 05/03/18 12:10> Vital signs: Vital Signs 05/02/18 22:00 05/02/18 23:00 05/03/18 00:00 Temperature 98.1 F Pulse Rate 109 H 108 H 108 H Respiratory Rate 22 22 23 Blood Pressure 116/58 L 110/57 L 109/59 L Pulse Oximetry 100 100 100 05/03/18 01:00 05/03/18 02:00 05/03/18 03:00 Temperature Pulse Rate 108 H 107 H 106 H Respiratory Rate 21 21 22 Blood Pressure 112/58 L 113/56 L 111/58 L Pulse Oximetry 100 95 100 05/03/18 04:00 05/03/18 05:00 05/03/18 06:00 Temperature 98 F Pulse Rate 108 H 110 H 103 H Respiratory Rate 19 22 20 Blood Pressure 112/64 118/60 115/55 L Pulse Oximetry 100 90 L 100 05/03/18 07:00 05/03/18 08:00 05/03/18 08:03 Temperature 97.3 F L Pulse Rate 111 H 107 H Respiratory Rate 21 24 Blood Pressure 116/65 108/73 Pulse Oximetry 100 100 99 05/03/18 09:00 05/03/18 12:00 05/03/18 16:00 Temperature 97.6 F 97.6 F Pulse Rate 102 H 109 H 112 H Respiratory Rate 25 H 19 Blood Pressure 105/58 L 107/58 L Pulse Oximetry 91 L 95 Intake & Output 05/03/18 05/03/18 05/04/18 06:59 18:59 06:59 Intake Total 3550 / 3550 3940 / 3940 1100 / 1100 Output Total 500 / 500 1700 / 1700 Balance 3050 / 3050 2240 / 2240 1100 / 1100 Weight 114.5 kg Intake: IV 3550 / 3550 2200 / 2200 1100 / 1100 NS Inj 1,000 ML @ 154 mls/hr IV 3000 / 3000 1000 / 1000 1000 / 1000 .CONT .Q6H30M [facility] Rx#:[id number] LR 1000 mL Inj 1,000 ML @ 333 1000 / 1000 mls/hr IV.SIG BOLUS [facility] Rx#: [id number] Flagyl 500 MG Inj 100 ML @ 100 300 / 300 200 / 200 100 / 100 mls/hr IV.SIG Q6H [facility] Rx#: [id number] Oral 0 / 0 1500 / 1500 Oral Supplement 240 / 240 Output: Urine 500 / 500 Urine Amount (Catheter) 1700 / 1700 Indwelling Urethral Catheter 1700 / 1700 Other: # Voids 4 # Incontinent Voids 4 # Urine Diapers 4 Date of Last Bowel Movement 05/03/18 05/03/18 # Bowel Movements 2 2 # Incontinent Bowel Movements 2 <NathenBrenden E - Last Filed: 05/03/18 21:42> Results - Labs CBC & Chem 7: 05/03/18 09:33 05/03/18 04:12 Laboratory Results - last 24 hr 05/02/18 05/02/18 05/03/18 16:15 22:06 04:12 WBC 5.9 RBC 3.73 L Hgb 11.1 L 10.9 L 10.7 L Hct 32.9 L 32.8 L 32.3 L MCV 86.5 MCH 28.6 MCHC 33.1 RDW 15.3 Plt Count 435 MPV 6.9 L Prelim Diff (Auto) Slide review pending Neut % (Auto) 61.9 Lymph % (Auto) 25.1 [place] % (Auto) 11.0 H Eos % (Auto) 1.6 Baso % (Auto) 0.4 Neut # (Auto) 3.7 Lymph # (Auto) 1.5 [place] # (Auto) 0.7 Eos # (Auto) 0.1 Baso # (Auto) 0.0 WBC Differential Manual diff final Seg Neuts % (Manual) 40 Band Neuts % (Manual) 15 H Lymphocytes % (Manual) 28 Monocytes % (Manual) 9 H Metamyelocytes % (Man) 4 H Myelocytes % (Man) 2 H Promyelocytes % (Man) 2 H Abs Neuts (Manual) 3.7 Nucleated RBCs/100 WBC 3 H Differential Comment . Toxic Granulation 2+ H Dohle Bodies Present H Platelet Estimate High H Platelet Morphology Clumped H Dimorphic RBCs Present H PT INR APTT Sodium Potassium Chloride Carbon Dioxide Anion Gap BUN Creatinine Estimated GFR Random Glucose Calcium Phosphorus Magnesium Total Bilirubin AST ALT Alkaline Phosphatase Total Protein Albumin 05/03/18 05/03/18 05/03/18 04:12 04:12 09:33 WBC RBC Hgb 10.8 L Hct 33.4 L MCV MCH MCHC RDW Plt Count MPV Prelim Diff (Auto) Neut % (Auto) Lymph % (Auto) [place] % (Auto) Eos % (Auto) Baso % (Auto) Neut # (Auto) Lymph # (Auto) [place] # (Auto) Eos # (Auto) Baso # (Auto) WBC Differential Seg Neuts % (Manual) Band Neuts % (Manual) Lymphocytes % (Manual) Monocytes % (Manual) Metamyelocytes % (Man) Myelocytes % (Man) Promyelocytes % (Man) Abs Neuts (Manual) Nucleated RBCs/100 WBC Differential Comment Toxic Granulation Dohle Bodies Platelet Estimate Platelet Morphology Dimorphic RBCs PT 18.4 H INR 1.8 APTT 42.9 H Sodium 144 Potassium 3.7 Chloride 118 H Carbon Dioxide 15.8 L Anion Gap 10 BUN 33 H Creatinine 2.58 H Estimated GFR 18 L Random Glucose 77 Calcium 7.7 L Phosphorus 3.1 Magnesium 2.3 Total Bilirubin 0.4 AST 20 ALT 9 L Alkaline Phosphatase 55 Total Protein 5.0 L Albumin 1.2 L Microbiology 05/01/18 23:00 Catheterized Urine Urine Culture - Final No growth in 48 hours <Maddison Lai - Last Filed: 05/03/18 12:10> - Labs CBC & Chem 7: 05/03/18 09:33 05/03/18 04:12 Laboratory Results - last 24 hr 05/02/18 05/03/18 05/03/18 22:06 04:12 04:12 WBC 5.9 RBC 3.73 L Hgb 10.9 L 10.7 L Hct 32.8 L 32.3 L MCV 86.5 MCH 28.6 MCHC 33.1 RDW 15.3 Plt Count 435 MPV 6.9 L Prelim Diff (Auto) Slide review pending Neut % (Auto) 61.9 Lymph % (Auto) 25.1 [place] % (Auto) 11.0 H Eos % (Auto) 1.6 Baso % (Auto) 0.4 Neut # (Auto) 3.7 Lymph # (Auto) 1.5 [place] # (Auto) 0.7 Eos # (Auto) 0.1 Baso # (Auto) 0.0 WBC Differential Manual diff final Seg Neuts % (Manual) 40 Band Neuts % (Manual) 15 H Lymphocytes % (Manual) 28 Monocytes % (Manual) 9 H Metamyelocytes % (Man) 4 H Myelocytes % (Man) 2 H Promyelocytes % (Man) 2 H Abs Neuts (Manual) 3.7 Nucleated RBCs/100 WBC 3 H Differential Comment . Toxic Granulation 2+ H Dohle Bodies Present H Platelet Estimate High H Platelet Morphology Clumped H Dimorphic RBCs Present H PT 18.4 H INR 1.8 APTT 42.9 H Sodium Potassium Chloride Carbon Dioxide Anion Gap BUN Creatinine Estimated GFR Random Glucose Calcium Phosphorus Magnesium Total Bilirubin AST ALT Alkaline Phosphatase Total Protein Albumin Stl C.difficile Tox PCR St C. diff Tox Epid 027 05/03/18 05/03/18 05/03/18 04:12 09:33 16:10 WBC RBC Hgb 10.8 L Hct 33.4 L MCV MCH MCHC RDW Plt Count MPV Prelim Diff (Auto) Neut % (Auto) Lymph % (Auto) [place] % (Auto) Eos % (Auto) Baso % (Auto) Neut # (Auto) Lymph # (Auto) [place] # (Auto) Eos # (Auto) Baso # (Auto) WBC Differential Seg Neuts % (Manual) Band Neuts % (Manual) Lymphocytes % (Manual) Monocytes % (Manual) Metamyelocytes % (Man) Myelocytes % (Man) Promyelocytes % (Man) Abs Neuts (Manual) Nucleated RBCs/100 WBC Differential Comment Toxic Granulation Dohle Bodies Platelet Estimate Platelet Morphology Dimorphic RBCs PT INR APTT Sodium 144 Potassium 3.7 Chloride 118 H Carbon Dioxide 15.8 L Anion Gap 10 BUN 33 H Creatinine 2.58 H Estimated GFR 18 L Random Glucose 77 Calcium 7.7 L Phosphorus 3.1 Magnesium 2.3 Total Bilirubin 0.4 AST 20 ALT 9 L Alkaline Phosphatase 55 Total Protein 5.0 L Albumin 1.2 L Stl C.difficile Tox PCR Negative St C. diff Tox Epid 027 Negative Microbiology 05/03/18 16:10 Stool Stool Occult Blood (FILOMENA) - Final Hemoccult positive 05/01/18 23:00 Catheterized Urine Urine Culture - Final No growth in 48 hours <Brenden Sena E - Last Filed: 05/03/18 21:42> Assessment and Plan (1) Acute blood loss anemia Status: Acute Code(s): D62 - Acute posthemorrhagic anemia - Plan Mrs. Hackett is a 72-year-old female patient who presented to the emergency room last evening with report of bright red blood per rectum patient has history of acute renal failure as well as atrial fibrillation and hypercholesterolemia. Patient was taking Eliquis for atrial fibrillation. Patient states that she has had several weeks of loose green stool and bright red blood per rectum was noted by staff at rehab center last evening. Patient reported feeling lightheaded and weak over the last several weeks but denies same at this time. Patient denies abdominal pain, nausea or vomiting. Patient denies shortness of breath at rest or on exertion. Patient states her father on 2017 and that she began to have loose stools with nausea and vomiting and weakness at that time. Patient denies ever having had a colonoscopy or upper endoscopy. Patient states " I watched my father suffer through the endoscopies that he underwent." Patient states that she has always declined to have any endoscopy procedures performed and her primary care physician has her do yearly Cologuard tests. Patient states that these tests have always been negative for any blood present in stool. Last Cologuard test was 1 year ago per patient. Patient reports hx of GERD for which she takes Protonix that controls symptoms. States positive family history for colon cancer, maternal aunt. Patient denies any alcohol usage patient denies smoking and denies NSAID use. Denies any known history of liver disease for herself or family members. She states that she has had bacterial infections in her colon, "many times and they always give me Cipro and it works." I discussed diet recommendations to reduce the incidence of diverticulitis and patient verbalized understanding. Upon arrival to [facility] patient's labs revealed --> Anemia WBC 7.8 RBC 3.36 hemoglobin 9.8 hematocrit 28.2. INR 2.2 total bilirubin 0.3 AST 20 ALT 9 alk phos 40 albumin 0.9. Repeat CBC done at 05/01/2018 at 2155 hemoglobin 8.2 hematocrit 24.5. Patient was transfused with 2 units of packed RBCs. CT scan of abdomen and pelvis done and revealed. Possible distal colonic diverticulitis or colitis with findings most suggestive of associated ileus. Persistent right- sided hydronephrosis with proximal right ureteral stone. Interval resolution of left-sided hydronephrosis. Other abdominal and pelvic findings are grossly stable. At this time patient is receiving IV Flagyl and Levaquin. Eliquis is on hold. This practice has been consulted to evaluate and monitor GI bleeding.Pt states she does not want to have a colonoscopy done at this time. 05/02/2018 patient states she has no abdominal pain, nausea or vomiting. Patient states diarrhea much more controlled and better. When discussed with patient plan of care and possible colonoscopy in the near future she states that she wants to use color guard testing and might consider an outpatient colonoscopy later. Initial CT findings did show possible diverticulitis or colitis and associated ileus and discussed with patient. Patient now has soft bowel sounds and chief complaint is that she is hungry. Plan Diet Continue to hold Eliquis for now KUB in a.m. to reevaluate ileus Bowel regimen as needed Monitor labs with special attention to hemoglobin PPI Protoni Flagyl Levaquin continue Continue to monitor abdominal pain, intake and output and any changes KUB in a.m. Patient was seen per myself and Dr. Sena, note was written on his behalf <Maddison Lai - Last Filed: 05/03/18 12:10> (1) Acute blood loss anemia Status: Acute Code(s): D62 - Acute posthemorrhagic anemia - Plan Patient seen and examined Agree with above Continue with current supportive care Monitor labs Patient will need a colonoscopy at some point in the near future so as to further evaluate and investigate this episode of colitis which is of unclear significance may be inflammatory versus infectious versus ischemic For now we will continue with antibiotics <Brenden Sena - Last Filed: 05/03/18 21:42>
[2018-05-04] MEDS: Pantoprazole Inj 40 MG Vial IV.PUSH SCH ×2 (03:03→15:19)
[2018-05-04] MEDS: Sod Chloride 0.9% Inj 1,000 ML IV.CONT SCH ×3 (03:03→17:17)
[2018-05-04] MEDS: Chlorhexidine Gluconate 2% 1 Pack (2 Cloths) TOPICAL SCH (03:04)
[2018-05-04 05:00] LABS: Baso % (Auto) 0.3 % (0.0-2.0); Eos # (Auto) 0.1 th/mm3 (0.0-0.4); Eos % (Auto) 1.6 % (0.0-4.0); Hematocrit 28.7 % (35.0-46.0); Hemoglobin 9.6 gm/dL (11.6-15.3); Lymph % (Auto) 19.4 % (9.0-44.0); Mean Corpuscular HGB Conc 33.6 % (32.0-36.0); Mean Corpuscular Hemoglobin 29.2 pg (27.0-34.0); Mean Corpuscular Volume 86.8 fL (80.0-100.0); Mono # (Auto) 0.5 th/mm3 (0.0-0.9); Neut # (Auto) 3.6 th/mm3 (1.8-7.7); Neut % (Auto) 68.7 % (16.0-70.0); Platelet Count 410 th/mm3 (150-450); Red Cell Distribution Width 15.3 % (11.6-17.2); White Blood Count 5.3 th/mm3 (4.0-11.0)
[2018-05-04 06:02] LABS: Calcium 7.2 mg/dL (8.5-10.1); Potassium 3.4 meq/L (3.5-5.1)
[2018-05-04 06:23] LABS: Total Protein 4.5 g/dL (6.4-8.2)
[2018-05-04 08:07] LABS: Eosinophils 2 % (0-4); Lymphocytes 10 % (9-44); Metamyelocytes 4 % (0-1); Monocytes 6 % (0-8); Myelocytes 3 % (0-0); Tallied Nucleated RBC 1 (0-0)
[2018-05-04 08:08] LABS: Platelet Estimate Normal (Normal); Platelet Morphology Normal (Normal)
[2018-05-04] MEDS: Nystatin Liq 500,000 UNIT/5 ML UDC BUCCAL SCH ×4 (08:11→21:32)
[2018-05-04] MEDS: Senna/Docusate Sodium 8.6/50 MG Tablet PO SCH ×2 (08:12→21:32)
--- NOTE | 2018-05-04 08:42 | XR ---
EXAM DATE: 05/04/2018 8:35 AM EDT AGE/SEX: 72 years / Female INDICATIONS: Evaluate for ileus. CLINICAL DATA: This is the patient's subsequent encounter. Patient reports that signs and symptoms h ave been present for 3 days and indicates a pain score of 5/10. MEDICAL/SURGICAL HISTORY: None. None. COMPARISON: POI, XR ABDOMEN KUB, 01/10/2018. . FINDINGS: Multiple air-filled mildly dilated loops of small and large bowel are noted suggestive of diffuse il eus. Clinical correlation is recommended. No free intraperitoneal air is noted. Degenerative changes and scoliosis of the thoracolumbar spine are noted. Chronic severe bony deformity involving the right hip is unchanged. CONCLUSION: Multiple air-filled mildly dilated loops of small and large bowel are noted suggestive of diffuse ile us. Clinical correlation is recommended. Electronically signed by: Jim Perez MD 05/04/2018 8:41 AM EDT
--- NOTE | 2018-05-04 09:13 | P.PN ---
Subjective Interval history: The patient is seen in the bed she does not appear in acute distress. No chest pain or shortness of breath. She however still had dark stool no fresh blood in it. Hemoglobin stable so far. No abdominal pain at this time. Physical Exam Vital signs: Vital Signs 05/03/18 12:00 05/03/18 16:00 05/03/18 17:00 Temperature 97.6 F 97.6 F Pulse Rate 109 H 112 H 117 H Respiratory Rate 25 H 19 19 Blood Pressure 105/58 L 107/58 L Pulse Oximetry 91 L 95 100 05/03/18 17:01 05/03/18 18:00 05/03/18 19:00 Temperature Pulse Rate 115 H 118 H 115 H Respiratory Rate 26 H 21 19 Blood Pressure 137/66 112/64 104/62 Pulse Oximetry 100 100 100 05/03/18 20:00 05/03/18 21:00 05/03/18 21:04 Temperature 98.7 F Pulse Rate 109 H 125 H 116 H Respiratory Rate 19 33 H 24 Blood Pressure 101/67 142/82 H Pulse Oximetry 100 95 100 05/03/18 22:00 05/03/18 23:00 05/04/18 00:00 Temperature 97.9 F Pulse Rate 112 H 115 H 112 H Respiratory Rate 20 22 22 Blood Pressure 138/74 136/71 116/61 Pulse Oximetry 100 100 100 05/04/18 01:00 05/04/18 02:00 05/04/18 03:00 Temperature Pulse Rate 109 H 110 H 108 H Respiratory Rate 21 20 19 Blood Pressure 121/79 118/68 Pulse Oximetry 100 100 100 05/04/18 03:01 05/04/18 04:00 05/04/18 05:00 Temperature 98.0 F Pulse Rate 108 H 105 H 104 H Respiratory Rate 22 16 18 Blood Pressure 158/70 H 102/59 L 101/56 L Pulse Oximetry 100 100 100 05/04/18 06:00 05/04/18 07:00 05/04/18 08:00 Temperature 98.4 F Pulse Rate 104 H 103 H 103 H Respiratory Rate 21 14 18 Blood Pressure 97/60 L 97/56 L Pulse Oximetry 100 96 100 05/04/18 08:01 05/04/18 08:03 05/04/18 09:00 Temperature Pulse Rate 103 H 112 H Respiratory Rate 19 21 Blood Pressure 115/61 113/69 Pulse Oximetry 100 93 L 100 Intake & Output 05/03/18 05/04/18 05/04/18 18:59 06:59 18:59 Intake Total 3940 / 3940 2950 / 2950 Output Total 1700 / 1700 Balance 2240 / 2240 2950 / 2950 Weight 117.4 kg Intake: IV 2200 / 2200 2350 / 2350 NS Inj 1,000 ML @ 154 mls/hr IV 1000 / 1000 2000 / 2000 .CONT .Q6H30M [facility] Rx#:[id number] LR 1000 mL Inj 1,000 ML @ 333 1000 / 1000 mls/hr IV.SIG BOLUS ONE Rx#: [id number] Levaquin 750 mg Premix Inj 150 150 / 150 ML @ 100 mls/hr IV.SIG Q48H [facility] Rx#:[id number] Flagyl 500 MG Inj 100 ML @ 100 200 / 200 200 / 200 mls/hr IV.SIG Q6H [facility] Rx#: [id number] Oral 1500 / 1500 600 / 600 Oral Supplement 240 / 240 Output: Urine Amount (Catheter) 1700 / 1700 Indwelling Urethral Catheter 1700 / 1700 Other: # Voids 4 2 # Incontinent Voids 4 # Urine Diapers 4 Date of Last Bowel Movement 05/03/18 05/03/18 # Bowel Movements 2 # Incontinent Bowel Movements 2 1 Narrative: GENERAL: Pleasant 72 yo F, morbidly obese, in nad SKIN: Warm and dry. HEAD: Normocephalic. EYES: No scleral icterus. No injection or drainage. NECK: Supple, trachea midline. No JVD or lymphadenopathy. CARDIOVASCULAR: Regular rate and rhythm without murmurs, gallops, or rubs. RESPIRATORY: Breath sounds equal bilaterally. No accessory muscle use. GASTROINTESTINAL: Abdomen soft, obese, non-tender, nondistended. MUSCULOSKELETAL: No cyanosis, or edema. BACK: Nontender without obvious deformity. No CVA tenderness. - Urinary Catheter Management Indwelling Urethral Catheter Cath placed during this visit: no Results - Labs CBC & Chem 7: 05/04/18 03:50 05/04/18 03:50 Laboratory Results - last 24 hr 05/01/18 05/03/18 05/03/18 19:40 09:33 16:10 WBC RBC Hgb 10.8 L Hct 33.4 L MCV MCH MCHC RDW Plt Count MPV Prelim Diff (Auto) Neut % (Auto) Lymph % (Auto) [place] % (Auto) Eos % (Auto) Baso % (Auto) Neut # (Auto) Lymph # (Auto) [place] # (Auto) Eos # (Auto) Baso # (Auto) WBC Differential Seg Neuts % (Manual) Band Neuts % (Manual) Lymphocytes % (Manual) Monocytes % (Manual) Eosinophils % (Manual) Metamyelocytes % (Man) Myelocytes % (Man) Abs Neuts (Manual) Nucleated RBCs/100 WBC Differential Comment Platelet Estimate Platelet Morphology Sodium Potassium Chloride Carbon Dioxide Anion Gap BUN Creatinine Estimated GFR Random Glucose Calcium Prot Corrected Calcium Total Protein Stl C.difficile Tox PCR Negative St C. diff Tox Epid 027 Negative MTS Gel Crossmatch See Detail 05/04/18 05/04/18 03:50 03:50 WBC 5.3 RBC 3.30 L Hgb 9.6 L Hct 28.7 L MCV 86.8 MCH 29.2 MCHC 33.6 RDW 15.3 Plt Count 410 MPV 7.0 Prelim Diff (Auto) Slide review pending Neut % (Auto) 68.7 Lymph % (Auto) 19.4 [place] % (Auto) 10.0 H Eos % (Auto) 1.6 Baso % (Auto) 0.3 Neut # (Auto) 3.6 Lymph # (Auto) 1.0 [place] # (Auto) 0.5 Eos # (Auto) 0.1 Baso # (Auto) 0.0 WBC Differential Manual diff final Seg Neuts % (Manual) 34 Band Neuts % (Manual) 41 H Lymphocytes % (Manual) 10 Monocytes % (Manual) 6 Eosinophils % (Manual) 2 Metamyelocytes % (Man) 4 H Myelocytes % (Man) 3 H Abs Neuts (Manual) 4.3 Nucleated RBCs/100 WBC 1 H Differential Comment . Platelet Estimate Normal Platelet Morphology Normal Sodium 145 Potassium 3.4 L Chloride 120 H Carbon Dioxide 17.0 L Anion Gap 8 BUN 29 H Creatinine 2.50 H Estimated GFR 19 L Random Glucose 93 Calcium 7.2 L* Prot Corrected Calcium 8.7 Total Protein 4.5 L Stl C.difficile Tox PCR St C. diff Tox Epid 027 MTS Gel Crossmatch Microbiology 05/03/18 16:10 Stool Stool Occult Blood (FILOMENA) - Final Hemoccult positive 05/01/18 23:00 Catheterized Urine Urine Culture - Final No growth in 48 hours - Imaging Impressions Abdomen X-Ray 05/04/18 08:00 CONCLUSION: Multiple air-filled mildly dilated loops of small and large bowel are noted suggestive of diffuse ileus. Clinical correlation is recommended. Assessment and Plan - Plan Acute GI bleed Ileus Diverticulitis -Advance diet as tolerated -Hold aspirin, hold Eliquis -Protonix IV twice daily -IV fluid resuscitation -Transfuse PRBCs to keep hemoglobin above 7 KUB in a.m. to reevaluate ileus Bowel regimen as needed Monitor labs with special attention to hemoglobin PPI Protoni Flagyl Levaquin continue Patient will need a colonoscopy at some point in the near future so as to further evaluate and investigate this episode of colitis which is of unclear significance may be inflammatory versus infectious versus ischemic For now we will continue with antibiotics Anemia -Due to above -Series of H&H -Transfuse to keep hemoglobin above 7 - so far H/H is stable Atrial fibrillation -Rate controlled -Hold metoprolol due to borderline hypotension -Hold liquids due to GI bleed -Continue telemetry Dyslipidemia -Pravastatin Diverticulitis - Metronidazole - Levofloxacin Acute kidney injury -Volume loss -Dehydration -Aggressive IV fluid resuscitation -Strict I's and O -Monitor electrolytes and creatinine DVT GI prophylaxis -Teds SCDs -No pharmacological DVT prophylaxis due to GI bleed -Protonix IV twice daily DC plan: Likely goes back to SNF. Will need clearance form GI specialist and also recommendations when to restart anticoagulation. Patient will need a colonoscopy at some point in the near future so as to further evaluate and investigate this episode of colitis which is of unclear significance may be inflammatory versus infectious versus ischemic
--- NOTE | 2018-05-04 10:38 | P.PNGI ---
Subjective Interval history: Pt is resting in bed, tolerating liquids ok, denies nausea, vomiting or abd pain , (+) for flatus. Denies bleeding <Robe Elliott - Last Filed: 05/16/18 23:59> Physical Exam Vital signs: Vital Signs 05/03/18 16:00 05/03/18 17:00 05/03/18 17:01 Temperature 97.6 F Pulse Rate 112 H 117 H 115 H Respiratory Rate 19 19 26 H Blood Pressure 107/58 L 137/66 Pulse Oximetry 95 100 100 05/03/18 18:00 05/03/18 19:00 05/03/18 20:00 Temperature 98.7 F Pulse Rate 118 H 115 H 109 H Respiratory Rate 21 19 19 Blood Pressure 112/64 104/62 101/67 Pulse Oximetry 100 100 100 05/03/18 21:00 05/03/18 21:04 05/03/18 22:00 Temperature Pulse Rate 125 H 116 H 112 H Respiratory Rate 33 H 24 20 Blood Pressure 142/82 H 138/74 Pulse Oximetry 95 100 100 05/03/18 23:00 05/04/18 00:00 05/04/18 01:00 Temperature 97.9 F Pulse Rate 115 H 112 H 109 H Respiratory Rate 22 22 21 Blood Pressure 136/71 116/61 121/79 Pulse Oximetry 100 100 100 05/04/18 02:00 05/04/18 03:00 05/04/18 03:01 Temperature Pulse Rate 110 H 108 H 108 H Respiratory Rate 20 19 22 Blood Pressure 118/68 158/70 H Pulse Oximetry 100 100 100 05/04/18 04:00 05/04/18 05:00 05/04/18 06:00 Temperature 98.0 F Pulse Rate 105 H 104 H 104 H Respiratory Rate 16 18 21 Blood Pressure 102/59 L 101/56 L 97/60 L Pulse Oximetry 100 100 100 05/04/18 07:00 05/04/18 08:00 05/04/18 08:01 Temperature 98.4 F Pulse Rate 103 H 103 H 103 H Respiratory Rate 14 18 19 Blood Pressure 97/56 L 115/61 Pulse Oximetry 96 100 100 05/04/18 08:03 05/04/18 09:00 05/04/18 10:00 Temperature Pulse Rate 112 H 107 H Respiratory Rate 21 18 Blood Pressure 113/69 105/63 Pulse Oximetry 93 L 100 100 05/04/18 11:00 05/04/18 11:36 05/04/18 12:00 Temperature 98.5 F Pulse Rate 112 H 109 H 109 H Respiratory Rate 27 H 21 20 Blood Pressure 126/71 123/74 Pulse Oximetry 100 100 100 Intake & Output 05/03/18 05/04/18 05/04/18 18:59 06:59 18:59 Intake Total 3940 / 3940 2950 / 2950 1100 / 1100 Output Total 1700 / 1700 Balance 2240 / 2240 2950 / 2950 1100 / 1100 Weight 117.4 kg Intake: IV 2200 / 2200 2350 / 2350 1100 / 1100 NS Inj 1,000 ML @ 154 mls/hr IV 1000 / 1000 2000 / 2000 1000 / 1000 .CONT .Q6H30M [facility] Rx#:[id number] LR 1000 mL Inj 1,000 ML @ 333 1000 / 1000 mls/hr IV.SIG BOLUS ONE Rx#: [id number] Levaquin 750 mg Premix Inj 150 150 / 150 ML @ 100 mls/hr IV.SIG Q48H [facility] Rx#:[id number] Flagyl 500 MG Inj 100 ML @ 100 200 / 200 200 / 200 100 / 100 mls/hr IV.SIG Q6H [facility] Rx#: [id number] Oral 1500 / 1500 600 / 600 Oral Supplement 240 / 240 Output: Urine Amount (Catheter) 1700 / 1700 Indwelling Urethral Catheter 1700 / 1700 Other: # Voids 4 2 # Incontinent Voids 4 # Urine Diapers 4 Date of Last Bowel Movement 05/03/18 05/03/18 05/04/18 # Bowel Movements 2 # Incontinent Bowel Movements 2 1 - Urinary Catheter Management Indwelling Urethral Catheter Cath placed during this visit: no <Brenden Sena E - Last Filed: 05/04/18 15:39> Vital signs: Vital Signs 05/03/18 12:00 05/03/18 16:00 05/03/18 17:00 Temperature 97.6 F 97.6 F Pulse Rate 109 H 112 H 117 H Respiratory Rate 25 H 19 19 Blood Pressure 105/58 L 107/58 L Pulse Oximetry 91 L 95 100 05/03/18 17:01 05/03/18 18:00 05/03/18 19:00 Temperature Pulse Rate 115 H 118 H 115 H Respiratory Rate 26 H 21 19 Blood Pressure 137/66 112/64 104/62 Pulse Oximetry 100 100 100 05/03/18 20:00 05/03/18 21:00 05/03/18 21:04 Temperature 98.7 F Pulse Rate 109 H 125 H 116 H Respiratory Rate 19 33 H 24 Blood Pressure 101/67 142/82 H Pulse Oximetry 100 95 100 05/03/18 22:00 05/03/18 23:00 05/04/18 00:00 Temperature 97.9 F Pulse Rate 112 H 115 H 112 H Respiratory Rate 20 22 22 Blood Pressure 138/74 136/71 116/61 Pulse Oximetry 100 100 100 05/04/18 01:00 05/04/18 02:00 05/04/18 03:00 Temperature Pulse Rate 109 H 110 H 108 H Respiratory Rate 21 20 19 Blood Pressure 121/79 118/68 Pulse Oximetry 100 100 100 05/04/18 03:01 05/04/18 04:00 05/04/18 05:00 Temperature 98.0 F Pulse Rate 108 H 105 H 104 H Respiratory Rate 22 16 18 Blood Pressure 158/70 H 102/59 L 101/56 L Pulse Oximetry 100 100 100 05/04/18 06:00 05/04/18 07:00 05/04/18 08:00 Temperature 98.4 F Pulse Rate 104 H 103 H 103 H Respiratory Rate 21 14 18 Blood Pressure 97/60 L 97/56 L Pulse Oximetry 100 96 100 05/04/18 08:01 05/04/18 08:03 05/04/18 09:00 Temperature Pulse Rate 103 H 112 H Respiratory Rate 19 21 Blood Pressure 115/61 113/69 Pulse Oximetry 100 93 L 100 Intake & Output 05/03/18 05/04/18 05/04/18 18:59 06:59 18:59 Intake Total 3940 / 3940 2950 / 2950 Output Total 1700 / 1700 Balance 2240 / 2240 2950 / 2950 Weight 117.4 kg Intake: IV 2200 / 2200 2350 / 2350 NS Inj 1,000 ML @ 154 mls/hr IV 1000 / 1000 2000 / 2000 .CONT .Q6H30M [facility] Rx#:[id number] LR 1000 mL Inj 1,000 ML @ 333 1000 / 1000 mls/hr IV.SIG BOLUS ONE Rx#: [id number] Levaquin 750 mg Premix Inj 150 150 / 150 ML @ 100 mls/hr IV.SIG Q48H [facility] Rx#:[id number] Flagyl 500 MG Inj 100 ML @ 100 200 / 200 200 / 200 mls/hr IV.SIG Q6H [facility] Rx#: [id number] Oral 1500 / 1500 600 / 600 Oral Supplement 240 / 240 Output: Urine Amount (Catheter) 1700 / 1700 Indwelling Urethral Catheter 1700 / 1700 Other: # Voids 4 2 # Incontinent Voids 4 # Urine Diapers 4 Date of Last Bowel Movement 05/03/18 05/03/18 05/03/18 # Bowel Movements 2 # Incontinent Bowel Movements 2 1 Narrative: GENERAL: morbidly obese, in no acute distress SKIN: Warm and dry. HEAD: Normocephalic. NECK: Supple, trachea midline. No JVD or lymphadenopathy. CARDIOVASCULAR: Regular rate and rhythm without murmurs, gallops, or rubs. RESPIRATORY: Breath sounds equal bilaterally. No accessory muscle use. GASTROINTESTINAL: Abdomen soft, obese, non-tender, nondistended. MUSCULOSKELETAL: No cyanosis, or edema. Neuro: Alert and oriented - Urinary Catheter Management Indwelling Urethral Catheter Cath placed during this visit: no <Robe Elliott - Last Filed: 05/16/18 23:59> Results - Labs CBC & Chem 7: 05/04/18 03:50 05/04/18 03:50 Laboratory Results - last 24 hr 05/01/18 05/03/18 05/04/18 19:40 16:10 03:50 WBC 5.3 RBC 3.30 L Hgb 9.6 L Hct 28.7 L MCV 86.8 MCH 29.2 MCHC 33.6 RDW 15.3 Plt Count 410 MPV 7.0 Prelim Diff (Auto) Slide review pending Neut % (Auto) 68.7 Lymph % (Auto) 19.4 [place] % (Auto) 10.0 H Eos % (Auto) 1.6 Baso % (Auto) 0.3 Neut # (Auto) 3.6 Lymph # (Auto) 1.0 [place] # (Auto) 0.5 Eos # (Auto) 0.1 Baso # (Auto) 0.0 WBC Differential Manual diff final Seg Neuts % (Manual) 34 Band Neuts % (Manual) 41 H Lymphocytes % (Manual) 10 Monocytes % (Manual) 6 Eosinophils % (Manual) 2 Metamyelocytes % (Man) 4 H Myelocytes % (Man) 3 H Abs Neuts (Manual) 4.3 Nucleated RBCs/100 WBC 1 H Differential Comment . Platelet Estimate Normal Platelet Morphology Normal Sodium Potassium Chloride Carbon Dioxide Anion Gap BUN Creatinine Estimated GFR Random Glucose Calcium Prot Corrected Calcium Total Protein Stl C.difficile Tox PCR Negative St C. diff Tox Epid 027 Negative MTS Gel Crossmatch See Detail 05/04/18 03:50 WBC RBC Hgb Hct MCV MCH MCHC RDW Plt Count MPV Prelim Diff (Auto) Neut % (Auto) Lymph % (Auto) [place] % (Auto) Eos % (Auto) Baso % (Auto) Neut # (Auto) Lymph # (Auto) [place] # (Auto) Eos # (Auto) Baso # (Auto) WBC Differential Seg Neuts % (Manual) Band Neuts % (Manual) Lymphocytes % (Manual) Monocytes % (Manual) Eosinophils % (Manual) Metamyelocytes % (Man) Myelocytes % (Man) Abs Neuts (Manual) Nucleated RBCs/100 WBC Differential Comment Platelet Estimate Platelet Morphology Sodium 145 Potassium 3.4 L Chloride 120 H Carbon Dioxide 17.0 L Anion Gap 8 BUN 29 H Creatinine 2.50 H Estimated GFR 19 L Random Glucose 93 Calcium 7.2 L* Prot Corrected Calcium 8.7 Total Protein 4.5 L Stl C.difficile Tox PCR St C. diff Tox Epid 027 MTS Gel Crossmatch Microbiology 05/03/18 16:10 Stool Stool Occult Blood (FILOMENA) - Final Hemoccult positive - Imaging Impressions Abdomen X-Ray 05/04/18 08:00 CONCLUSION: Multiple air-filled mildly dilated loops of small and large bowel are noted suggestive of diffuse ileus. Clinical correlation is recommended. <Brenden Sena E - Last Filed: 05/04/18 15:39> - Labs CBC & Chem 7: 05/11/18 07:15 05/11/18 18:27 Laboratory Results - last 24 hr 05/01/18 05/03/18 05/04/18 19:40 16:10 03:50 WBC 5.3 RBC 3.30 L Hgb 9.6 L Hct 28.7 L MCV 86.8 MCH 29.2 MCHC 33.6 RDW 15.3 Plt Count 410 MPV 7.0 Prelim Diff (Auto) Slide review pending Neut % (Auto) 68.7 Lymph % (Auto) 19.4 [place] % (Auto) 10.0 H Eos % (Auto) 1.6 Baso % (Auto) 0.3 Neut # (Auto) 3.6 Lymph # (Auto) 1.0 [place] # (Auto) 0.5 Eos # (Auto) 0.1 Baso # (Auto) 0.0 WBC Differential Manual diff final Seg Neuts % (Manual) 34 Band Neuts % (Manual) 41 H Lymphocytes % (Manual) 10 Monocytes % (Manual) 6 Eosinophils % (Manual) 2 Metamyelocytes % (Man) 4 H Myelocytes % (Man) 3 H Abs Neuts (Manual) 4.3 Nucleated RBCs/100 WBC 1 H Differential Comment . Platelet Estimate Normal Platelet Morphology Normal Sodium Potassium Chloride Carbon Dioxide Anion Gap BUN Creatinine Estimated GFR Random Glucose Calcium Prot Corrected Calcium Total Protein Stl C.difficile Tox PCR Negative St C. diff Tox Epid 027 Negative MTS Gel Crossmatch See Detail 05/04/18 03:50 WBC RBC Hgb Hct MCV MCH MCHC RDW Plt Count MPV Prelim Diff (Auto) Neut % (Auto) Lymph % (Auto) [place] % (Auto) Eos % (Auto) Baso % (Auto) Neut # (Auto) Lymph # (Auto) [place] # (Auto) Eos # (Auto) Baso # (Auto) WBC Differential Seg Neuts % (Manual) Band Neuts % (Manual) Lymphocytes % (Manual) Monocytes % (Manual) Eosinophils % (Manual) Metamyelocytes % (Man) Myelocytes % (Man) Abs Neuts (Manual) Nucleated RBCs/100 WBC Differential Comment Platelet Estimate Platelet Morphology Sodium 145 Potassium 3.4 L Chloride 120 H Carbon Dioxide 17.0 L Anion Gap 8 BUN 29 H Creatinine 2.50 H Estimated GFR 19 L Random Glucose 93 Calcium 7.2 L* Prot Corrected Calcium 8.7 Total Protein 4.5 L Stl C.difficile Tox PCR St C. diff Tox Epid 027 MTS Gel Crossmatch Microbiology 05/03/18 16:10 Stool Stool Occult Blood (FILOMENA) - Final Hemoccult positive 05/01/18 23:00 Catheterized Urine Urine Culture - Final No growth in 48 hours - Imaging Impressions Abdomen/Pelvis CT 05/02/18 00:10 CONCLUSION: 1. Possible distal colonic diverticulitis or colitis with findings most suggestive of associated ileus. 2. Persistent right-sided hydronephrosis with proximal right ureteral stone. 3. Interval resolution of left-sided hydronephrosis 4. Other abdominal and pelvic findings are grossly stable. Abdomen X-Ray 05/04/18 08:00 CONCLUSION: Multiple air-filled mildly dilated loops of small and large bowel are noted suggestive of diffuse ileus. Clinical correlation is recommended. Abdomen X-Ray 05/04/18 08:00 CONCLUSION: Multiple air-filled mildly dilated loops of small and large bowel are noted suggestive of diffuse ileus. Clinical correlation is recommended. <Robe Elliott - Last Filed: 05/16/18 23:59> Assessment and Plan (1) Acute blood loss anemia Status: Acute Code(s): D62 - Acute posthemorrhagic anemia - Plan Patient seen and examined Agree with above Continue with current supportive care Monitor labs <Brenden Sena - Last Filed: 05/04/18 15:39> (1) Acute blood loss anemia Status: Acute Code(s): D62 - Acute posthemorrhagic anemia - Plan Anemia, acute GI bleed/bright red blood per rectum - no more bleeding, hgb today 9.6 stable Diverticulitis (first episode) - Metronidazole and Levofloxacin Possible colitis abx as above, stools negative Ileus- Pt is (+) for flatus, not having abd pain, tolerating liquids okay She is on bowel regimen Abdomen X-Ray 05/04/18 Multiple air-filled mildly dilated loops of small and large bowel are noted suggestive of diffuse ileus. Clinical correlation is recommended. Abdomen X-Ray 05/04/18 Multiple air-filled mildly dilated loops of small and large bowel are noted suggestive of diffuse ileus. Clinical correlation is recommended. Abdomen/Pelvis CT 05/02/18 1. Possible distal colonic diverticulitis or colitis with findings most suggestive of associated ileus. 2. Persistent right-sided hydronephrosis with proximal right ureteral stone. 3. Interval resolution of left-sided hydronephrosis 4. Other abdominal and pelvic findings are grossly stable. Hx of A-fib- on Eliquis Plan Full liquid diet KUB in the am Monitor labs Patient will need a colonoscopy at some point for evaluation of colitis vs diverticulitis continue with antibiotics Pt seen and examined by Dr. Sena and myself <Amawi,Khawla - Last Filed: 05/16/18 23:59>
[2018-05-04] MEDS ORDERED: Potassium Bicarbonate 25 MEQ Effervescent Tablet PO ONE (12:23)
[2018-05-05] MEDS: Pantoprazole Inj 40 MG Vial IV.PUSH SCH ×2 (03:18→15:45)
[2018-05-05] MEDS: Sod Chloride 0.9% Inj 1,000 ML IV.CONT SCH (04:05)
[2018-05-05] MEDS: Chlorhexidine Gluconate 2% 1 Pack (2 Cloths) TOPICAL SCH (04:07)
[2018-05-05 07:25] LABS: Baso % (Auto) 0.3 % (0.0-2.0); Eos # (Auto) 0.1 th/mm3 (0.0-0.4); Eos % (Auto) 1.2 % (0.0-4.0); Hematocrit 27.8 % (35.0-46.0); Hemoglobin 9.1 gm/dL (11.6-15.3); Lymph # (Auto) 1.2 th/mm3 (1.0-4.8); Lymph % (Auto) 22.8 % (9.0-44.0); Mean Corpuscular HGB Conc 32.7 % (32.0-36.0); Mean Corpuscular Hemoglobin 28.8 pg (27.0-34.0); Mean Platelet Volume 6.9 fL (7.0-11.0); Mono # (Auto) 0.5 th/mm3 (0.0-0.9); Neut # (Auto) 3.3 th/mm3 (1.8-7.7); Neut % (Auto) 65.7 % (16.0-70.0); Platelet Count 369 th/mm3 (150-450); Red Blood Count 3.16 mil/mm3 (4.00-5.30); Red Cell Distribution Width 15.8 % (11.6-17.2); White Blood Count 5.1 th/mm3 (4.0-11.0)
[2018-05-05 07:58] LABS: Calcium 7.1 mg/dL (8.5-10.1); Carbon Dioxide 14.5 meq/L (21.0-32.0); Potassium 3.5 meq/L (3.5-5.1)
[2018-05-05 08:14] LABS: Total Protein 4.3 g/dL (6.4-8.2)
[2018-05-05] MEDS: Nystatin Liq 500,000 UNIT/5 ML UDC BUCCAL SCH ×4 (08:35→22:54)
[2018-05-05] MEDS: Senna/Docusate Sodium 8.6/50 MG Tablet PO SCH ×2 (08:35→22:55)
[2018-05-05 09:46] LABS: Eosinophils 2 % (0-4); Lymphocytes 10 % (9-44); Monocytes 3 % (0-8); Myelocytes 1 % (0-0); Platelet Estimate Normal (Normal); Platelet Morphology Normal (Normal)
[2018-05-05 09:47] LABS: Dohle Bodies Present; Toxic Granulation 2+; Toxic Vacuolation Present
[2018-05-05 09:48] LABS: RBC Morphology Normal (Normal)
--- NOTE | 2018-05-05 09:58 | P.PNIM ---
Subjective Interval history: Patient states she is having dark colored stools. She does not have any abdominal pain. She says she feels sad after her father recently . She does not have any other complaints Physical Exam Vital signs: Vital Signs 05/04/18 10:00 05/04/18 11:00 05/04/18 11:36 Temperature Pulse Rate 107 H 112 H 109 H Respiratory Rate 18 27 H 21 Blood Pressure 105/63 126/71 Pulse Oximetry 100 100 100 05/04/18 12:00 05/04/18 13:00 05/04/18 14:00 Temperature 98.5 F Pulse Rate 109 H 113 H 119 H Respiratory Rate 20 23 20 Blood Pressure 123/74 106/76 128/69 Pulse Oximetry 100 100 100 05/04/18 15:00 05/04/18 16:00 05/04/18 16:01 Temperature 98.6 F Pulse Rate 110 H 112 H 110 H Respiratory Rate 22 22 26 H Blood Pressure 134/67 Pulse Oximetry 100 100 100 05/04/18 16:18 05/04/18 19:00 05/04/18 19:59 Temperature Pulse Rate 111 H Respiratory Rate 25 H Blood Pressure 148/68 H Pulse Oximetry 100 90 L 94 L 05/04/18 20:00 05/05/18 00:00 05/05/18 04:00 Temperature 97.9 F 97.9 F 97.9 F Pulse Rate 114 H 115 H 106 H Respiratory Rate 20 22 21 Blood Pressure 130/64 119/66 127/72 Pulse Oximetry 90 L 96 96 05/05/18 08:00 Temperature 97.4 F L Pulse Rate 106 H Respiratory Rate 16 Blood Pressure 117/63 Pulse Oximetry 99 Intake & Output 05/04/18 05/05/18 05/05/18 18:59 06:59 18:59 Intake Total 2200 / 2200 1440 / 1440 Balance 2200 / 2200 1440 / 1440 Weight 120.7 kg Intake: IV 1200 / 1200 1200 / 1200 NS Inj 1,000 ML @ 84 mls/hr IV. 1000 / 1000 1000 / 1000 CONT .[id number] L[facility] Rx#:[id number] Flagyl 500 MG Inj 100 ML @ 100 200 / 200 200 / 200 mls/hr IV.SIG Q6H L[facility]NN Rx#: [id number] Oral 1000 / 1000 240 / 240 Other: # Incontinent Voids 4 Date of Last Bowel Movement 05/04/18 05/04/18 # Bowel Movements 3 # Incontinent Bowel Movements 2 Narrative: General patient in no acute distress HEENT extraocular movements are intact, clear oropharyngeal mucosa, no JVD Cardiovascular S1-S2 audible, irregularly irregular rhythm Respiratory clear to auscultation bilaterally Abdomen soft, obese, nontender, nondistended, hyperactive bowel sounds, patient states that she is passing gas and had a bowel movement this morning Extremities nonpitting edema bilateral lower extremities up to the knees Neuro patient moves all 4 extremities sensation is intact bilaterally. - Urinary Catheter Management Indwelling Urethral Catheter Cath placed during this visit: no Results - Labs CBC & Chem 7: 05/05/18 05:36 05/05/18 05:36 Laboratory Results - last 24 hr 05/05/18 05/05/18 05/05/18 02:15 05:36 05:36 WBC 5.1 RBC 3.16 L Hgb 9.1 L Hct 27.8 L MCV 88.0 MCH 28.8 MCHC 32.7 RDW 15.8 Plt Count 369 MPV 6.9 L Prelim Diff (Auto) Slide review pending Neut % (Auto) 65.7 Lymph % (Auto) 22.8 [place] % (Auto) 10.0 H Eos % (Auto) 1.2 Baso % (Auto) 0.3 Neut # (Auto) 3.3 Lymph # (Auto) 1.2 [place] # (Auto) 0.5 Eos # (Auto) 0.1 Baso # (Auto) 0.0 WBC Differential Manual diff final Seg Neuts % (Manual) 33 Band Neuts % (Manual) 51 H Lymphocytes % (Manual) 10 Monocytes % (Manual) 3 Eosinophils % (Manual) 2 Myelocytes % (Man) 1 H Abs Neuts (Manual) 4.3 Differential Comment . Toxic Granulation 2+ H Toxic Vacuolation Present H Dohle Bodies Present H Platelet Estimate Normal Platelet Morphology Normal RBC Morphology Normal Sodium 145 Potassium 3.5 Chloride 119 H Carbon Dioxide 14.5 L Anion Gap 12 BUN 26 H Creatinine 2.40 H Estimated GFR 20 L Random Glucose 88 Calcium 7.1 L* Prot Corrected Calcium 8.7 Total Protein 4.3 L Stl C.difficile Tox PCR Negative St C. diff Tox Epid 027 Negative Microbiology 05/05/18 02:15 Stool Stool Occult Blood (FILOMENA) - Final Hemoccult positive Assessment and Plan - Plan This patient is a 72-year-old female with a diagnosis of atrial fibrillation and was on Eliquis prior to admission, she was seen at our facility a couple of weeks ago where she was in acute kidney injury secondary to bilateral renal calculi causing obstruction and kidney failure. The patient was admitted and started on IV fluids. Her creatinine subsequently improved and the patient did not undergo any procedure by urology during that admission. The patient began having bloody bowel movements and some abdominal pain a few days ago and came into our emergency department for evaluation. Acute GI bleed Ileus Diverticulitis The patient is being followed by GI. There is no significant drop in her hemoglobin since yesterday. She does report having bowel movements which are still dark in color. GI had offered an upper endoscopy however the patient refused the procedure. The patient is passing gas and as mentioned above had a bowel movement this morning. KUB from this morning does not show any change from previous imaging. I will follow up with the surgical team for further recommendations regarding the patient's ileus. We will continue to monitor her electrolytes and replace them as needed. Aspirin and Eliquis have been held. The patient's IV fluids will be changed from NS to half NS as she also has a hyperchloremic non-anion gap metabolic acidosis. We will continue IV antibiotics as well as Protonix. The patient will eventually need a colonoscopy , and possible endoscopy to investigate the colitis and upper GI bleeding source. We will continue a clear liquid diet. The diet will be advanced as tolerated after receiving recommendations from GI. Acute symptomatic blood loss anemia secondary to upper GI bleed Goal is to keep the hemoglobin above 7. Currently her hemoglobin is 9.1 we will continue to monitor her hemoglobin. Continue Protonix. Atrial fibrillation Rate is currently under control. The patient's metoprolol was held due to low blood pressure from her current condition. Eliquis has been held because the patient has a active GI bleed. We will continue to monitor the patient on telemetry. Acute kidney injury Acute kidney injury is likely secondary to volume loss from the suspected upper GI bleed. She has received aggressive IV fluid resuscitation. CT scan of the abdomen and pelvis shows resolution of the left-sided hydronephrosis however the right side is still present. I will consult urology to evaluate the patient for further recommendations. No pharmacotherapy for DVT throat prophylaxis as the patient has an upper GI bleed. DC plan: Likely goes back to SNF. Will need clearance form GI specialist and also recommendations when to restart anticoagulation. Patient will need a colonoscopy at some point in the near future so as to further evaluate and investigate this episode of colitis which is of unclear significance may be inflammatory versus infectious versus ischemic
--- NOTE | 2018-05-05 10:15 | XR ---
EXAM DATE: 05/05/2018 9:50 AM EDT AGE/SEX: 72 years / Female INDICATIONS: Abdominal distention. CLINICAL DATA: This is the patient's initial encounter. Patient reports that signs and symptoms have been present for 4 - 6 days and indicates a pain score of 0/10. MEDICAL/SURGICAL HISTORY: . A-fib. None. COMPARISON: C, ABDOMEN 1V KUB, 05/04/2018. . FINDINGS: There are multiple air-filled mildly dilated loops of small and large bowel which are relatively unc hanged compared to previous examination consistent with possible persistent ileus. Clinical correlati on is recommended. No free intraperitoneal air is noted. Degenerative changes and scoliosis of the th oracolumbar spine are noted. Chronic severe bony deformity involving the right hip is stable. CONCLUSION: Multiple air-filled mildly dilated loops of small and large bowel which are relatively unchanged comp ared to previous examination consistent with possible persistent ileus. Clinical correlation is recom mended. Electronically signed by: Jim Perez MD 05/05/2018 10:13 AM EDT
[2018-05-05] MEDS ORDERED: Sodium Chloride 0.45 % Inj 1,000 ML IV.CONT SCH (11:00)
--- NOTE | 2018-05-05 11:40 | P.PNGI ---
Subjective Interval history: Patient laying in bed supine awake and alert. Denies nausea, vomiting, abdominal pain. States she is tolerating liquid diet well. Reports having 3 very soft brown BMs this morning. Discussed eventual need for colonoscopy procedure to evaluate and differentiate colitis versus diverticulitis. We discussed the procedure and the prep for same. Patient verbalized understanding and states that she will consider having procedure after she speaks with family member this afternoon. <Danielle Louis - Last Filed: 05/05/18 11:48> Physical Exam Vital signs: Vital Signs 05/04/18 12:00 05/04/18 13:00 05/04/18 14:00 Temperature 98.5 F Pulse Rate 109 H 113 H 119 H Respiratory Rate 20 23 20 Blood Pressure 123/74 106/76 128/69 Pulse Oximetry 100 100 100 05/04/18 15:00 05/04/18 16:00 05/04/18 16:01 Temperature 98.6 F Pulse Rate 110 H 112 H 110 H Respiratory Rate 22 22 26 H Blood Pressure 134/67 Pulse Oximetry 100 100 100 05/04/18 16:18 05/04/18 19:00 05/04/18 19:59 Temperature Pulse Rate 111 H Respiratory Rate 25 H Blood Pressure 148/68 H Pulse Oximetry 100 90 L 94 L 05/04/18 20:00 05/05/18 00:00 05/05/18 04:00 Temperature 97.9 F 97.9 F 97.9 F Pulse Rate 114 H 115 H 106 H Respiratory Rate 20 22 21 Blood Pressure 130/64 119/66 127/72 Pulse Oximetry 90 L 96 96 05/05/18 08:00 Temperature 97.4 F L Pulse Rate 106 H Respiratory Rate 16 Blood Pressure 117/63 Pulse Oximetry 99 Intake & Output 05/04/18 05/05/18 05/05/18 18:59 06:59 18:59 Intake Total 2200 / 2200 1440 / 1440 Balance 2200 / 2200 1440 / 1440 Weight 120.7 kg Intake: IV 1200 / 1200 1200 / 1200 NS Inj 1,000 ML @ 84 mls/hr IV. 1000 / 1000 1000 / 1000 CONT .[id number] [facility] Rx#:[id number] Flagyl 500 MG Inj 100 ML @ 100 200 / 200 200 / 200 mls/hr IV.SIG Q6H [facility] Rx#: [id number] Oral 1000 / 1000 240 / 240 Other: # Incontinent Voids 4 Date of Last Bowel Movement 05/04/18 05/04/18 # Bowel Movements 3 # Incontinent Bowel Movements 2 - Constitutional no acute distress - Routine HEENT Exam Head: Present: normocephalic - Routine Respiratory Exam Present: CTA bilaterally. Absent: accessory muscle use - Routine Cardiovascular Exam Present: RRR - Routine Abdominal Exam Present: soft, normoactive bowel sounds. Absent: tenderness, distended, guarding, firm - Routine Extremities Exam Present: pulses intact - Routine Skin Exam Present: dry, warm. Absent: jaundice - Routine Neurological Exam Present: alert, oriented X3 - Detailed Neurological Exam: Coma Scale Eye Opening: Spontaneous Verbal Response: Oriented Motor Response: Obey commands Rebekah Coma Scale Total: 15 - Routine Psychiatric Exam Present: normal affect, cooperative - Urinary Catheter Management Indwelling Urethral Catheter Cath placed during this visit: no <Danielle Louis - Last Filed: 05/05/18 11:48> Vital signs: Vital Signs 05/04/18 13:00 05/04/18 14:00 05/04/18 15:00 Temperature Pulse Rate 113 H 119 H 110 H Respiratory Rate 23 20 22 Blood Pressure 106/76 128/69 134/67 Pulse Oximetry 100 100 100 05/04/18 16:00 05/04/18 16:01 05/04/18 16:18 Temperature 98.6 F Pulse Rate 112 H 110 H 111 H Respiratory Rate 22 26 H 25 H Blood Pressure 148/68 H Pulse Oximetry 100 100 100 05/04/18 19:00 05/04/18 19:59 05/04/18 20:00 Temperature 97.9 F Pulse Rate 114 H Respiratory Rate 20 Blood Pressure 130/64 Pulse Oximetry 90 L 94 L 90 L 05/05/18 00:00 05/05/18 04:00 05/05/18 08:00 Temperature 97.9 F 97.9 F 97.4 F L Pulse Rate 115 H 106 H 110 H Respiratory Rate 22 21 16 Blood Pressure 119/66 127/72 117/63 Pulse Oximetry 96 96 99 Intake & Output 05/04/18 05/05/18 05/05/18 18:59 06:59 18:59 Intake Total 2200 / 2200 1440 / 1440 Balance 2200 / 2200 1440 / 1440 Weight 120.7 kg Intake: IV 1200 / 1200 1200 / 1200 NS Inj 1,000 ML @ 84 mls/hr IV. 1000 / 1000 1000 / 1000 CONT .[id number] [facility] Rx#:[id number] Flagyl 500 MG Inj 100 ML @ 100 200 / 200 200 / 200 mls/hr IV.SIG Q6H L[facility] Rx#: [id number] Oral 1000 / 1000 240 / 240 Other: # Incontinent Voids 4 Date of Last Bowel Movement 05/04/18 05/04/18 # Bowel Movements 3 # Incontinent Bowel Movements 2 - Urinary Catheter Management Indwelling Urethral Catheter Cath placed during this visit: no <NathenBrenden E - Last Filed: 05/05/18 12:50> Results - Labs CBC & Chem 7: 05/05/18 05:36 05/05/18 05:36 Laboratory Results - last 24 hr 05/05/18 05/05/18 05/05/18 02:15 05:36 05:36 WBC 5.1 RBC 3.16 L Hgb 9.1 L Hct 27.8 L MCV 88.0 MCH 28.8 MCHC 32.7 RDW 15.8 Plt Count 369 MPV 6.9 L Prelim Diff (Auto) Slide review pending Neut % (Auto) 65.7 Lymph % (Auto) 22.8 [place] % (Auto) 10.0 H Eos % (Auto) 1.2 Baso % (Auto) 0.3 Neut # (Auto) 3.3 Lymph # (Auto) 1.2 [place] # (Auto) 0.5 Eos # (Auto) 0.1 Baso # (Auto) 0.0 WBC Differential Manual diff final Seg Neuts % (Manual) 33 Band Neuts % (Manual) 51 H Lymphocytes % (Manual) 10 Monocytes % (Manual) 3 Eosinophils % (Manual) 2 Myelocytes % (Man) 1 H Abs Neuts (Manual) 4.3 Differential Comment . Toxic Granulation 2+ H Toxic Vacuolation Present H Dohle Bodies Present H Platelet Estimate Normal Platelet Morphology Normal RBC Morphology Normal Sodium 145 Potassium 3.5 Chloride 119 H Carbon Dioxide 14.5 L Anion Gap 12 BUN 26 H Creatinine 2.40 H Estimated GFR 20 L Random Glucose 88 Calcium 7.1 L* Prot Corrected Calcium 8.7 Total Protein 4.3 L Stl C.difficile Tox PCR Negative St C. diff Tox Epid 027 Negative Microbiology 05/05/18 02:15 Stool Stool Occult Blood (FILOMENA) - Final Hemoccult positive - Imaging Impressions Abdomen X-Ray 05/05/18 06:00 CONCLUSION: Multiple air-filled mildly dilated loops of small and large bowel which are relatively unchanged compared to previous examination consistent with possible persistent ileus. Clinical correlation is recommended. <Danielle Louis - Last Filed: 05/05/18 11:48> - Labs CBC & Chem 7: 05/05/18 05:36 05/05/18 05:36 Laboratory Results - last 24 hr 05/05/18 05/05/18 05/05/18 02:15 05:36 05:36 WBC 5.1 RBC 3.16 L Hgb 9.1 L Hct 27.8 L MCV 88.0 MCH 28.8 MCHC 32.7 RDW 15.8 Plt Count 369 MPV 6.9 L Prelim Diff (Auto) Slide review pending Neut % (Auto) 65.7 Lymph % (Auto) 22.8 [place] % (Auto) 10.0 H Eos % (Auto) 1.2 Baso % (Auto) 0.3 Neut # (Auto) 3.3 Lymph # (Auto) 1.2 [place] # (Auto) 0.5 Eos # (Auto) 0.1 Baso # (Auto) 0.0 WBC Differential Manual diff final Seg Neuts % (Manual) 33 Band Neuts % (Manual) 51 H Lymphocytes % (Manual) 10 Monocytes % (Manual) 3 Eosinophils % (Manual) 2 Myelocytes % (Man) 1 H Abs Neuts (Manual) 4.3 Differential Comment . Toxic Granulation 2+ H Toxic Vacuolation Present H Dohle Bodies Present H Platelet Estimate Normal Platelet Morphology Normal RBC Morphology Normal Sodium 145 Potassium 3.5 Chloride 119 H Carbon Dioxide 14.5 L Anion Gap 12 BUN 26 H Creatinine 2.40 H Estimated GFR 20 L Random Glucose 88 Calcium 7.1 L* Prot Corrected Calcium 8.7 Total Protein 4.3 L Stl C.difficile Tox PCR Negative St C. diff Tox Epid 027 Negative Microbiology 05/05/18 02:15 Stool Stool Occult Blood (FILOMENA) - Final Hemoccult positive - Imaging Impressions Abdomen X-Ray 05/05/18 06:00 CONCLUSION: Multiple air-filled mildly dilated loops of small and large bowel which are relatively unchanged compared to previous examination consistent with possible persistent ileus. Clinical correlation is recommended. <Brenden Sena - Last Filed: 05/05/18 12:50> Assessment and Plan (1) Acute blood loss anemia Status: Acute Code(s): D62 - Acute posthemorrhagic anemia (2) Diverticulitis Status: Acute Code(s): K57.92 - Diverticulitis of intestine, part unspecified , without perforation or abscess without bleeding - Plan Anemia, acute GI bleed, bright red blood per rectum-patient denies noted bleeding hemoglobin 9.1 hematocrit 27.8 Diverticulitis- patiently currently on Flagyl and Levaquin IV Ileus - KUB done this morning revealed--> Multiple air-filled mildly dilated loops of small and large bowel which are relatively unchanged compared to previous examination consistent with possible persistent ileus. Clinical correlation is recommended. Patient reports having 3 soft bowel movements this morning bowel sounds are active tolerating clear liquid diet well. Plan: -Full liquid diet -Monitor labs -Continue IV antibiotics -Continue PPI -Plan for colonoscopy pending patient's consent -Supportive care -Further recommendations to follow This patient has been seen by myself and Dr. Sena and this note is written on his behalf. <Danielle Louis - Last Filed: 05/05/18 11:48> (1) Acute blood loss anemia Status: Acute Code(s): D62 - Acute posthemorrhagic anemia (2) Diverticulitis Status: Acute Code(s): K57.92 - Diverticulitis of intestine, part unspecified , without perforation or abscess without bleeding - Plan Patient seen and examined Agree with above Continue current supportive care Monitor labs At this point it may make more sense to just finish a treatment course of antibiotics and plan for outpatient endoscopy 3-[address] No blood or bleeding at this point Advance diet If all is stable patient may be discharged from a GI standpoint follow-up as an outpatient at which time we will schedule for outpatient endoscopy <Brenden Sena - Last Filed: 05/05/18 12:50>
[2018-05-05] MEDS: Sodium Chloride 0.45 % Inj 1,000 ML IV.CONT SCH (15:46)
--- NOTE | 2018-05-05 18:32 | P.CONURO ---
History of Present Illness Service: Consult date: 05/05/18 Requesting Physician: Korin Almazan Reason for Consult: Right ureteral calculus Primary Care Provider: UNKNOWN History of Present Illness: 72-year-old female with history multiple left renal calculi as well as an obstructing 10 mm right proximal ureteral calculus with hydronephrosis who was last evaluated by Dr. Bearden of urology during her previous hospitalization and recommended outpatient management. Patient was recently readmitted for workup and management of ongoing rectal bleeding and a urology consult is once again placed regarding her renal lithiasis. The patient denies having any significant flank pain or hematuria. She reports that her rectal bleeding has improved during this hospitalization and is scheduled to undergo GI endoscopy tomorrow. I reviewed the recent CT scan images and concur with the radiologist impression. I discussed with the patient that although she is not having any symptoms that her right kidney remains obstructed and that a stent should be placed to alleviate the obstruction and preserve kidney function. I also discussed eventual outpatient management with extra corporeal shockwave lithotripsy. Review of Systems All other systems reviewed negative except as stated in HPI PMFSH - History History Provided By: Patient - Tobacco History Second Hand Smoke Exposure: No Smoking Status: Never smoker - Alcohol History How Often Do You Have a Drink Containing Alcohol: Never - Substance Use History Substance History: No History of Abuse - Travel History Recent Travel in the [place] Within the Last 8 Weeks: No Recent Travel Out of the Country Within the Last 8 Weeks: No - Immunization History Tetanus Immunization: >5 Years Hx Influenza Vaccine This Season: No Medications and Allergies Active Medications: Active Medications Acetaminophen (Tylenol) 650 mg PO Q6H PRN PRN Reason: PAIN 1-10 AND/OR FEVER >101F Al Hydroxide/Mg Hydroxide (Milk Of [place] Lihelena) 30 ml PO Q12H PRN PRN Reason: Mild Constipation Albuterol (Duoneb Neb (Prn)) 1 ampul NEB Q2HR NEB PRN PRN Reason: WHEEZING Bisacodyl (Dulcolax Supp) 10 mg RECTAL DAILY PRN PRN Reason: SEVERE CONSITIPATION Chlorhexidine Gluconate (Chlorhexidine 2% Cloth) 3 pack TOPICAL DAILY@0400 PRN PRN Reason: Extra cloth needed Stop: 05/07/18 03:59 Chlorhexidine Gluconate (Chlorhexidine 2% Cloth) 3 pack TOPICAL DAILY@0400 [facility] Stop: 05/07/18 03:59 Last Admin: 05/05/18 04:07 Dose: Not Given Metronidazole/Sodium Chloride (Flagyl 500 Mg Inj) 100 mls @ 100 mls/hr IV.SIG Q6H [facility] Last Infusion: 05/05/18 16:45 Dose: Infused Levofloxacin/Dextrose (Levaquin 750 Mg Premix Inj) 150 mls @ 100 mls/hr IV.SIG Q48H [facility] Last Infusion: 05/04/18 05:51 Dose: Infused Sodium Chloride (1/2 Normal Saline Inj) 1,000 mls @ 84 mls/hr IV.CONT .[id number] [facility] Last Admin: 05/05/18 15:46 Dose: 84 mls/hr Morphine Sulfate (Morphine Inj) 2 mg IV.PUSH Q2H PRN PRN Reason: PAIN SCALE 6 TO 10 Nystatin (Mycostatin Liq) 5 ml BUCCAL QID [facility] Last Admin: 05/05/18 17:56 Dose: 5 ml Ondansetron HCl (Zofran Inj) 4 mg IV.PUSH Q6H PRN PRN Reason: NAUSEA OR VOMITING Pantoprazole Sodium (Protonix Inj) 40 mg IV.PUSH Q12H [facility] Last Admin: 05/05/18 15:45 Dose: 40 mg Pravastatin Sodium (Pravachol) 40 mg PO HS [facility] Last Admin: 05/04/18 21:32 Dose: 40 mg Senna/Docusate Sodium (Maggie-Colace) 1 tab PO BID [facility] Last Admin: 05/05/18 08:35 Dose: 1 tab Sennosides (Senokot) 17.2 mg PO Q12H PRN PRN Reason: Moderate Constipation Sodium Chloride (Ns Flush) 2 ml IV.FLUSH BID [facility] Last Admin: 05/05/18 08:36 Dose: 2 ml Sodium Chloride (Ns Flush) 2 ml IV.FLUSH PRN PRN PRN Reason: FLUSH AFTER USING IV ACCESS Last Admin: 05/04/18 08:11 Dose: 2 ml Vitamin D (Vitamin D3) 2,000 unit PO DAILY [facility] Last Admin: 05/05/18 08:38 Dose: 2,000 unit Allergies Allergy/AdvReac Type Severity Reaction Status Date / Time erythromycin base Allergy Diarrhea Verified 04/17/18 11:12 Home Medications Medication Instructions Recorded Confirmed Type aspirin [Aspir-Low] 81 mg PO DAILY 04/17/18 05/01/18 History cholecalciferol (vitamin D3) 2,000 unit PO DAILY 04/17/18 05/01/18 History [Vitamin D3] omeprazole 20 mg PO DAILY 04/17/18 05/01/18 History vit C,K-In-jjasx-lutein-zeaxan 1 tab PO BID 04/17/18 05/01/18 History [PreserVision AREDS 2] metoprolol tartrate 100 mg PO BID 05/01/18 05/01/18 History simvastatin 20 mg PO HS 05/01/18 05/01/18 History Physical Exam Vital Signs - 24 hr 05/04/18 19:00 05/04/18 19:59 05/04/18 20:00 Temperature 97.9 F Pulse Rate 114 H Respiratory Rate 20 Blood Pressure 130/64 Pulse Oximetry 90 L 94 L 90 L 05/05/18 00:00 05/05/18 04:00 05/05/18 08:00 Temperature 97.9 F 97.9 F 97.4 F L Pulse Rate 115 H 106 H 110 H Respiratory Rate 22 21 16 Blood Pressure 119/66 127/72 117/63 Pulse Oximetry 96 96 99 05/05/18 12:00 05/05/18 16:00 Temperature 97.6 F 98 F Pulse Rate 102 H 112 H Respiratory Rate 16 16 Blood Pressure 111/56 L 118/56 L Pulse Oximetry 97 98 Physical Exam: GENERAL: This is a well-nourished, well-developed patient, in no apparent distress. SKIN: No rashes, ecchymoses or lesions. Cool and dry. HEAD: Atraumatic. Normocephalic. No temporal or scalp tenderness. EYES: Pupils equal round and reactive. Extraocular motions intact. No scleral icterus. No injection or drainage. ENT: Nose without bleeding, purulent drainage or septal hematoma. Throat without erythema, tonsillar hypertrophy or exudate. Uvula midline. Airway patent. NECK: Trachea midline. No JVD or lymphadenopathy. Supple, nontender, no meningeal signs. CARDIOVASCULAR: Regular rate and rhythm without murmurs, gallops, or rubs. RESPIRATORY: Clear to auscultation. Breath sounds equal bilaterally. No wheezes , rales, or rhonchi. GASTROINTESTINAL: Abdomen soft, non-tender, nondistended. No hepato-splenomegaly , or palpable masses. No guarding. GENITOURINARY: No CVA tenderness, bladder not distended MUSCULOSKELETAL: Extremities without clubbing, cyanosis, or edema. No joint tenderness, effusion, or edema noted. No calf tenderness. Negative Homans sign bilaterally. NEUROLOGICAL: Awake and alert. Cranial nerves II through XII intact. Motor and sensory grossly within normal limits. Five out of 5 muscle strength in all muscle groups. Normal speech. Laboratory Results - last 24 hr 05/05/18 05/05/18 05/05/18 02:15 05:36 05:36 WBC 5.1 RBC 3.16 L Hgb 9.1 L Hct 27.8 L MCV 88.0 MCH 28.8 MCHC 32.7 RDW 15.8 Plt Count 369 MPV 6.9 L Prelim Diff (Auto) Slide review pending Neut % (Auto) 65.7 Lymph % (Auto) 22.8 Spink % (Auto) 10.0 H Eos % (Auto) 1.2 Baso % (Auto) 0.3 Neut # (Auto) 3.3 Lymph # (Auto) 1.2 Spink # (Auto) 0.5 Eos # (Auto) 0.1 Baso # (Auto) 0.0 WBC Differential Manual diff final Seg Neuts % (Manual) 33 Band Neuts % (Manual) 51 H Lymphocytes % (Manual) 10 Monocytes % (Manual) 3 Eosinophils % (Manual) 2 Myelocytes % (Man) 1 H Abs Neuts (Manual) 4.3 Differential Comment . Toxic Granulation 2+ H Toxic Vacuolation Present H Dohle Bodies Present H Platelet Estimate Normal Platelet Morphology Normal RBC Morphology Normal Sodium 145 Potassium 3.5 Chloride 119 H Carbon Dioxide 14.5 L Anion Gap 12 BUN 26 H Creatinine 2.40 H Estimated GFR 20 L Random Glucose 88 Lactic Acid Calcium 7.1 L* Prot Corrected Calcium 8.7 Total Protein 4.3 L Stl C.difficile Tox PCR Negative St C. diff Tox Epid 027 Negative 05/05/18 13:21 WBC RBC Hgb Hct MCV MCH MCHC RDW Plt Count MPV Prelim Diff (Auto) Neut % (Auto) Lymph % (Auto) Spink % (Auto) Eos % (Auto) Baso % (Auto) Neut # (Auto) Lymph # (Auto) Spink # (Auto) Eos # (Auto) Baso # (Auto) WBC Differential Seg Neuts % (Manual) Band Neuts % (Manual) Lymphocytes % (Manual) Monocytes % (Manual) Eosinophils % (Manual) Myelocytes % (Man) Abs Neuts (Manual) Differential Comment Toxic Granulation Toxic Vacuolation Dohle Bodies Platelet Estimate Platelet Morphology RBC Morphology Sodium Potassium Chloride Carbon Dioxide Anion Gap BUN Creatinine Estimated GFR Random Glucose Lactic Acid 1.3 Calcium Prot Corrected Calcium Total Protein Stl C.difficile Tox PCR St C. diff Tox Epid 027 Microbiology 05/05/18 02:15 Stool Occult Blood (FILOMENA) - Final Stool Hemoccult positive Result Diagrams: 05/05/18 05:36 05/05/18 05:36 Imaging: ITS Impressions Abdomen/Pelvis CT 05/02/18 00:10 CONCLUSION: 1. Possible distal colonic diverticulitis or colitis with findings most suggestive of associated ileus. 2. Persistent right-sided hydronephrosis with proximal right ureteral stone. 3. Interval resolution of left-sided hydronephrosis 4. Other abdominal and pelvic findings are grossly stable. Abdomen X-Ray 05/05/18 06:00 CONCLUSION: Multiple air-filled mildly dilated loops of small and large bowel which are relatively unchanged compared to previous examination consistent with possible persistent ileus. Clinical correlation is recommended. Assessment and Plan - Assessment (1) Ureteral calculus, right Code(s): N20.1 - Calculus of ureter Status: Acute (2) Renal calculus, left Code(s): N20.0 - Calculus of kidney Status: Acute - Plan Urologic impression: 1. Obstructing 10 mm right proximal ureteral calculus with hydronephrosis 2. Multiple nonobstructing left renal calculi. Plan: 1. Keep the patient n.p.o. after midnight Tuesday 2. Patient to be scheduled for cystoscopy, right retrograde pyelogram and right ureteral stent placement on Tuesday 3. Patient will require subsequent outpatient shockwave lithotripsy
[2018-05-06] MEDS: Pantoprazole Inj 40 MG Vial IV.PUSH SCH (04:21)
[2018-05-06] MEDS: Sodium Chloride 0.45 % Inj 1,000 ML IV.CONT SCH (04:28)
[2018-05-06] MEDS: Chlorhexidine Gluconate 2% 1 Pack (2 Cloths) TOPICAL SCH (04:41)
[2018-05-06 05:18] LABS: Baso % (Auto) 0.3 % (0.0-2.0); Eos # (Auto) 0.1 th/mm3 (0.0-0.4); Eos % (Auto) 1.9 % (0.0-4.0); Hematocrit 28.4 % (35.0-46.0); Hemoglobin 9.4 gm/dL (11.6-15.3); Lymph # (Auto) 1.2 th/mm3 (1.0-4.8); Lymph % (Auto) 22.9 % (9.0-44.0); Mean Corpuscular HGB Conc 32.9 % (32.0-36.0); Mean Platelet Volume 7.2 fL (7.0-11.0); Mono # (Auto) 0.4 th/mm3 (0.0-0.9); Mono % (Auto) 7.9 % (0.0-8.0); Neut # (Auto) 3.6 th/mm3 (1.8-7.7); Platelet Count 375 th/mm3 (150-450); Red Blood Count 3.22 mil/mm3 (4.00-5.30); Red Cell Distribution Width 15.7 % (11.6-17.2); White Blood Count 5.3 th/mm3 (4.0-11.0)
[2018-05-06 06:19] LABS: Calcium 7.3 mg/dL (8.5-10.1); Carbon Dioxide 13.5 meq/L (21.0-32.0); Potassium 3.4 meq/L (3.5-5.1)
[2018-05-06 06:31] LABS: Total Protein 4.5 g/dL (6.4-8.2)
[2018-05-06 07:25] LABS: Dohle Bodies Present; Lymphocytes 21 % (9-44); Metamyelocytes 3 % (0-1); Monocytes 3 % (0-8); Myelocytes 2 % (0-0); Tallied Nucleated RBC 1 (0-0)
[2018-05-06 07:26] LABS: Platelet Estimate Normal (Normal); Platelet Morphology Normal (Normal); Toxic Granulation 1+
[2018-05-06] MEDS: Senna/Docusate Sodium 8.6/50 MG Tablet PO SCH ×2 (09:17→21:26)
[2018-05-06] MEDS: Nystatin Liq 500,000 UNIT/5 ML UDC BUCCAL SCH ×4 (09:18→21:26)
--- NOTE | 2018-05-06 11:21 | P.PNIM ---
Subjective Interval history: Patient is laying down in bed. She appears to be comfortable. No current complaints. No shortness of breath, no abdominal pain. Physical Exam Vital signs: Vital Signs 05/05/18 12:00 05/05/18 16:00 05/05/18 16:11 Temperature 97.6 F 98 F Pulse Rate 102 H 112 H 111 H Respiratory Rate 16 16 Blood Pressure 111/56 L 118/56 L Pulse Oximetry 97 98 05/05/18 19:00 05/05/18 20:00 05/06/18 00:00 Temperature 97.6 F 97.9 F Pulse Rate 113 H 113 H Respiratory Rate 20 20 Blood Pressure 109/65 98/57 L Pulse Oximetry 96 99 96 05/06/18 04:00 05/06/18 08:00 05/06/18 09:53 Temperature 97.6 F 98.0 F Pulse Rate 109 H 108 H Respiratory Rate 20 18 Blood Pressure 112/62 113/65 Pulse Oximetry 98 97 97 Intake & Output 05/05/18 05/06/18 05/06/18 18:59 06:59 18:59 Intake Total 200 / 200 2310 / 2310 100 / 100 Output Total 600 / 600 Balance 200 / 200 1710 / 1710 100 / 100 Weight 121.7 kg Intake: IV 200 / 200 1350 / 1350 100 / 100 1/2 Normal Saline Inj 1,000 ML 1000 / 1000 @ 84 mls/hr IV.CONT .[id number] [facility] Rx#:[id number] Levaquin 750 mg Premix Inj 150 150 / 150 ML @ 100 mls/hr IV.SIG Q48H [facility] Rx#:[id number] Flagyl 500 MG Inj 100 ML @ 100 200 / 200 200 / 200 100 / 100 mls/hr IV.SIG Q6H [facility] Rx#: [id number] Oral 480 / 480 Oral Supplement 480 / 480 Output: Urine 500 / 500 Stool 100 / 100 Other: # Voids 2 # Incontinent Voids 2 # Urine Diapers 4 Date of Last Bowel Movement 05/05/18 05/05/18 05/06/18 # Bowel Movements 3 # Incontinent Bowel Movements 2 Narrative: General patient in no acute distress HEENT extraocular movements are intact, clear oropharyngeal mucosa, no JVD Cardiovascular S1-S2 audible, irregularly irregular rhythm Respiratory clear to auscultation bilaterally Abdomen soft, obese, nontender, nondistended, hyperactive bowel sounds, patient states that she is passing gas and had a bowel movement this morning Extremities nonpitting edema bilateral lower extremities up to the knees Neuro patient moves all 4 extremities sensation is intact bilaterally - Urinary Catheter Management Indwelling Urethral Catheter Cath placed during this visit: no Results - Labs CBC & Chem 7: 05/06/18 04:06 05/06/18 04:06 Laboratory Results - last 24 hr 05/05/18 05/06/18 05/06/18 13:21 04:06 04:06 WBC 5.3 RBC 3.22 L Hgb 9.4 L Hct 28.4 L MCV 88.0 MCH 29.0 MCHC 32.9 RDW 15.7 Plt Count 375 MPV 7.2 Prelim Diff (Auto) Slide review pending Neut % (Auto) 67.0 Lymph % (Auto) 22.9 Bailey % (Auto) 7.9 Eos % (Auto) 1.9 Baso % (Auto) 0.3 Neut # (Auto) 3.6 Lymph # (Auto) 1.2 Bailey # (Auto) 0.4 Eos # (Auto) 0.1 Baso # (Auto) 0.0 WBC Differential Manual diff final Seg Neuts % (Manual) 50 Band Neuts % (Manual) 21 H Lymphocytes % (Manual) 21 Monocytes % (Manual) 3 Metamyelocytes % (Man) 3 H Myelocytes % (Man) 2 H Abs Neuts (Manual) 4.0 Nucleated RBCs/100 WBC 1 H Differential Comment . Toxic Granulation 1+ H Dohle Bodies Present H Platelet Estimate Normal Platelet Morphology Normal Sodium 145 Potassium 3.4 L Chloride 118 H Carbon Dioxide 13.5 L Anion Gap 14 BUN 25 H Creatinine 2.46 H Estimated GFR 19 L Random Glucose 93 Lactic Acid 1.3 Calcium 7.3 L* Prot Corrected Calcium 8.8 Total Protein 4.5 L Assessment and Plan - Plan This patient is a 72-year-old female with a diagnosis of atrial fibrillation and was on Eliquis prior to admission, she was seen at our facility a couple of weeks ago where she was in acute kidney injury secondary to bilateral renal calculi causing obstruction and kidney failure. The patient was admitted and started on IV fluids. Her creatinine subsequently improved and the patient did not undergo any procedure by urology during that admission. The patient began having bloody bowel movements and some abdominal pain a few days ago and came into our emergency department for evaluation. Acute GI bleed Ileus Diverticulitis The patient is being followed by GI. There is no significant change in the patient's hemoglobin from yesterday to today. She does report having bowel movements which are still dark in color. GI had offered an upper endoscopy however the patient refused the procedure. As per GIs documentation the patient will likely need an outpatient endoscopy however no need for inpatient endoscopy as the patients bleeding appears to be stable. Aspirin and Eliquis have been held. The patient is passing gas and as mentioned above had a bowel movement this morning. KUB from yesterday does not show any change from previous imaging. Surgical team following the ileus we will continue to monitor her electrolytes and replace them as needed with caution given her acute kidney injury. We will continue IV antibiotics as well as Protonix. The patient will eventually need a colonoscopy, and endoscopy to investigate the colitis and upper GI bleeding source. We will continue a clear liquid diet. The diet will be advanced as tolerated after receiving recommendations from GI. Hyperchloremic acidosis. The patient has a low bicarb of 13.5 on the patient's renal panel. This is likely secondary to hyperchloremia and also acute kidney injury. Will follow up with nephrology for further recommendations regarding the acute kidney injury. Acute symptomatic blood loss anemia secondary to upper GI bleed Goal is to keep the hemoglobin above 7. Currently her hemoglobin is 9.4 we will continue to monitor her hemoglobin. Continue Protonix. Atrial fibrillation Rate is currently under control. The patient's metoprolol was held due to low blood pressure from her current condition. Eliquis has been held because the patient has a active GI bleed. We will continue to monitor the patient on telemetry. Acute kidney injury with obstructing proximal ureteral calculus 1. Obstructing 10 mm right proximal ureteral calculus with hydronephrosis 2. Multiple nonobstructing left renal calculi. The plan from the urologist is to have the patient undergo cystoscopy, right retrograde pyelogram and right ureteral stent placement on Tuesday. She will also require subsequent outpatient shockwave lithotripsy. I will repeat the patient's INR tomorrow a.m., Last INR was 1.8. Acute kidney injury is likely secondary to volume loss from the suspected upper GI bleed. She has received aggressive IV fluid resuscitation. CT scan of the abdomen and pelvis shows resolution of the left-sided hydronephrosis however the right side is still present. Nephrology has also been consulted to evaluate the patient for acute kidney injury. No pharmacotherapy for DVT throat prophylaxis as the patient has an upper GI bleed. DC plan: Likely goes back to SNF. Will need clearance form GI specialist and also recommendations when to restart anticoagulation.
--- NOTE | 2018-05-06 12:06 | P.CONNP ---
History of Present Illness Service: Nephrology Reason for Consult: MAC Primary Care Provider: UNKNOWN History of Present Illness: Ms. Hackett was admitted with rectal bleeding on the . She was diagnosed with diverticulitis. Seen by GI. Started on Levaquin and Flagyl. Had CT of the abdomen/pelvis on admission which revealed right ureteral stone with right sided hydronephrosis. Patient was recently in the hospital with bilateral renal calculi and MAC. At that time she developed atrial fibrillation. Urology procedure was not done during that admission. Patient's creatinine was 2.60 on admission this time, it is 2.46 today. She appears to be non oliguric. Her weight has increased by 16 kg in 5 days. Review of Systems Ears, Nose, Mouth, and Throat: Denies abnormal hearing Cardiovascular: Denies chest pain Gastrointestinal: Reports abdominal pain, Reports loose stools Comments: lower extremity edema PMFSH - History History Provided By: Patient - Tobacco History Second Hand Smoke Exposure: No Smoking Status: Never smoker - Alcohol History How Often Do You Have a Drink Containing Alcohol: Never - Substance Use History Substance History: No History of Abuse - Travel History Recent Travel in the [facility] Within the Last 8 Weeks: No Recent Travel Out of the Country Within the Last 8 Weeks: No - Immunization History Tetanus Immunization: >5 Years Hx Influenza Vaccine This Season: No Medications and Allergies Active Medications: Active Medications Acetaminophen (Tylenol) 650 mg PO Q6H PRN PRN Reason: PAIN 1-10 AND/OR FEVER >101F Al Hydroxide/Mg Hydroxide (Milk Of [place] Liq) 30 ml PO Q12H PRN PRN Reason: Mild Constipation Albuterol (Duoneb Neb (Prn)) 1 ampul NEB Q2HR NEB PRN PRN Reason: WHEEZING Bisacodyl (Dulcolax Supp) 10 mg RECTAL DAILY PRN PRN Reason: SEVERE CONSITIPATION Chlorhexidine Gluconate (Chlorhexidine 2% Cloth) 3 pack TOPICAL DAILY@0400 PRN PRN Reason: Extra cloth needed Stop: 05/07/18 03:59 Chlorhexidine Gluconate (Chlorhexidine 2% Cloth) 3 pack TOPICAL DAILY@0400 [facility] Stop: 05/07/18 03:59 Last Admin: 05/06/18 04:41 Dose: Not Given Metronidazole/Sodium Chloride (Flagyl 500 Mg Inj) 100 mls @ 100 mls/hr IV.SIG Q6H [facility] Last Infusion: 05/06/18 10:22 Dose: Infused Levofloxacin/Dextrose (Levaquin 750 Mg Premix Inj) 150 mls @ 100 mls/hr IV.SIG Q48H [facility] Last Infusion: 05/06/18 06:05 Dose: Infused Sodium Chloride (1/2 Normal Saline Inj) 1,000 mls @ 84 mls/hr IV.CONT .[id number] [facility] Last Admin: 05/06/18 04:28 Dose: 84 mls/hr Morphine Sulfate (Morphine Inj) 2 mg IV.PUSH Q2H PRN PRN Reason: PAIN SCALE 6 TO 10 Nystatin (Mycostatin Liq) 5 ml BUCCAL QID [facility] Last Admin: 05/06/18 09:18 Dose: 5 ml Ondansetron HCl (Zofran Inj) 4 mg IV.PUSH Q6H PRN PRN Reason: NAUSEA OR VOMITING Pantoprazole Sodium (Protonix Inj) 40 mg IV.PUSH Q12H [facility] Last Admin: 05/06/18 04:21 Dose: 40 mg Pravastatin Sodium (Pravachol) 40 mg PO HS [facility] Last Admin: 05/05/18 22:55 Dose: 40 mg Senna/Docusate Sodium (Maggie-Colace) 1 tab PO BID [facility] Last Admin: 05/06/18 09:17 Dose: Not Given Sennosides (Senokot) 17.2 mg PO Q12H PRN PRN Reason: Moderate Constipation Sodium Chloride (Ns Flush) 2 ml IV.FLUSH BID [facility] Last Admin: 05/06/18 09:22 Dose: Not Given Sodium Chloride (Ns Flush) 2 ml IV.FLUSH PRN PRN PRN Reason: FLUSH AFTER USING IV ACCESS Last Admin: 05/04/18 08:11 Dose: 2 ml Vitamin D (Vitamin D3) 2,000 unit PO DAILY [facility] Last Admin: 05/06/18 09:18 Dose: 2,000 unit Allergies Allergy/AdvReac Type Severity Reaction Status Date / Time erythromycin base Allergy Diarrhea Verified 04/17/18 11:12 Home Medications Medication Instructions Recorded Confirmed Type aspirin [Aspir-Low] 81 mg PO DAILY 04/17/18 05/01/18 History cholecalciferol (vitamin D3) 2,000 unit PO DAILY 04/17/18 05/01/18 History [Vitamin D3] omeprazole 20 mg PO DAILY 04/17/18 05/01/18 History vit C,F-Qd-nqbpo-lutein-zeaxan 1 tab PO BID 04/17/18 05/01/18 History [PreserVision AREDS 2] metoprolol tartrate 100 mg PO BID 05/01/18 05/01/18 History simvastatin 20 mg PO HS 05/01/18 05/01/18 History Exam Vital signs: Vital Signs 05/05/18 12:00 05/05/18 16:00 05/05/18 16:11 Temperature 97.6 F 98 F Pulse Rate 102 H 112 H 111 H Respiratory Rate 16 16 Blood Pressure 111/56 L 118/56 L Pulse Oximetry 97 98 05/05/18 19:00 05/05/18 20:00 05/06/18 00:00 Temperature 97.6 F 97.9 F Pulse Rate 113 H 113 H Respiratory Rate 20 20 Blood Pressure 109/65 98/57 L Pulse Oximetry 96 99 96 05/06/18 04:00 05/06/18 08:00 05/06/18 09:53 Temperature 97.6 F 98.0 F Pulse Rate 109 H 108 H Respiratory Rate 20 18 Blood Pressure 112/62 113/65 Pulse Oximetry 98 97 97 Intake & Output 05/05/18 05/06/18 05/06/18 18:59 06:59 18:59 Intake Total 200 / 200 2310 / 2310 100 / 100 Output Total 600 / 600 Balance 200 / 200 1710 / 1710 100 / 100 Weight 121.7 kg Intake: IV 200 / 200 1350 / 1350 100 / 100 1/2 Normal Saline Inj 1,000 ML 1000 / 1000 @ 84 mls/hr IV.CONT .[id number] [facility] Rx#:[id number] Levaquin 750 mg Premix Inj 150 150 / 150 ML @ 100 mls/hr IV.SIG Q48H [facility] Rx#:[id number] Flagyl 500 MG Inj 100 ML @ 100 200 / 200 200 / 200 100 / 100 mls/hr IV.SIG Q6H [facility] Rx#: [id number] Oral 480 / 480 Oral Supplement 480 / 480 Output: Urine 500 / 500 Stool 100 / 100 Other: # Voids 2 # Incontinent Voids 2 # Urine Diapers 4 Date of Last Bowel Movement 05/05/18 05/05/18 05/06/18 # Bowel Movements 3 # Incontinent Bowel Movements 2 - Constitutional no acute distress, chronically ill appearing Comments: obese - Routine HEENT Exam Head: Present: normocephalic, atraumatic Eye: Present: EOMI, PERRL ENT: Present: mucous membranes moist - Routine Neck Exam Absent: JVD, lymphadenopathy, thyromegaly - Routine Chest/Breast/Axilla Exam Chest wall: Absent: tenderness - Routine Respiratory Exam Present: rales - Routine Cardiovascular Exam Present: RRR, S1, S2 - Routine Abdominal Exam Present: soft, normoactive bowel sounds. Absent: distended, rebound, ostomy - Routine Extremities Exam Present: edema - Routine Skin Exam Present: intact - Routine Neurological Exam Present: alert, oriented X3 Results - Lab Results 05/06/18 04:06 05/06/18 04:06 Most recent lab results Calcium 7.3 mg/dL (8.5-10.1) L* 05/06/18 04:06 Phosphorus 3.1 mg/dL (2.5-4.9) 05/03/18 04:12 Magnesium 2.3 mg/dL (1.5-2.5) 05/03/18 04:12 Assessment and Plan - Assessment (1) Acute kidney injury Code(s): N17.9 - Acute kidney failure, unspecified Status: Acute Plan: patient's right kidney may be better of the two, and now she has right sided obstruction. MAC could be due to obstructive uropathy. In addition she is volume overloaded. Reduce and taper off fluids. I will start Bumex. Urology has been consulted. Cystoscopy and ureteral stent planned for Tuesday. Avoid nephrotoxic agents. (2) Renal calculi Code(s): N20.0 - Calculus of kidney Status: Acute Plan: Had bilateral renal calculi, now has right ureteral stone. Urology has been consulted. (3) Hydronephrosis Code(s): N13.30 - Unspecified hydronephrosis Status: Acute Plan: Due to ureteral stone. See above. (4) Acute blood loss anemia Code(s): D62 - Acute posthemorrhagic anemia Status: Acute - Plan Hemoglobin is stable. GI on the case. - Attending Attestation Thanks for the consult. Discussed with Dr. Almazan.
--- NOTE | 2018-05-06 12:39 | P.PNGI ---
Subjective Interval history: Patient is resting in the bed currently denies any nausea vomiting or abdominal pain hemoglobin 9.4 and stable Discussed with family members colonoscopy and is agreed to the procedure. Patient has active bowel sounds and continues to have small amounts of diarrhea stools when she voids. <Maddison Lai - Last Filed: 05/06/18 13:17> Physical Exam Vital signs: Vital Signs 05/05/18 16:00 05/05/18 16:11 05/05/18 19:00 Temperature 98 F Pulse Rate 112 H 111 H Respiratory Rate 16 Blood Pressure 118/56 L Pulse Oximetry 98 96 05/05/18 20:00 05/06/18 00:00 05/06/18 04:00 Temperature 97.6 F 97.9 F 97.6 F Pulse Rate 113 H 113 H 109 H Respiratory Rate 20 20 20 Blood Pressure 109/65 98/57 L 112/62 Pulse Oximetry 99 96 98 05/06/18 08:00 05/06/18 09:53 Temperature 98.0 F Pulse Rate 108 H Respiratory Rate 18 Blood Pressure 113/65 Pulse Oximetry 97 97 Intake & Output 05/05/18 05/06/18 05/06/18 18:59 06:59 18:59 Intake Total 200 / 200 2310 / 2310 100 / 100 Output Total 600 / 600 Balance 200 / 200 1710 / 1710 100 / 100 Weight 121.7 kg Intake: IV 200 / 200 1350 / 1350 100 / 100 1/2 Normal Saline Inj 1,000 ML 1000 / 1000 @ 84 mls/hr IV.CONT .[id number] [facility] Rx#:[id number] Levaquin 750 mg Premix Inj 150 150 / 150 ML @ 100 mls/hr IV.SIG Q48H [facility] Rx#:[id number] Flagyl 500 MG Inj 100 ML @ 100 200 / 200 200 / 200 100 / 100 mls/hr IV.SIG Q6H [facility] Rx#: [id number] Oral 480 / 480 Oral Supplement 480 / 480 Output: Urine 500 / 500 Stool 100 / 100 Other: # Voids 2 # Incontinent Voids 2 # Urine Diapers 4 Date of Last Bowel Movement 05/05/18 05/05/18 05/06/18 # Bowel Movements 3 # Incontinent Bowel Movements 2 - Constitutional mild distress, morbidly obese - Routine HEENT Exam Head: Present: normocephalic ENT: Present: mucous membranes moist - Routine Neck Exam Present: supple - Routine Respiratory Exam Present: accessory muscle use (No obvious shortness of breath at rest) - Routine Cardiovascular Exam Present: S1, S2 - Routine Abdominal Exam Present: soft (Round, obese, active bowel sounds, still some small incontinent loose stools with voiding) - Routine Skin Exam Present: intact, pallor - Routine Neurological Exam Present: alert - Routine Psychiatric Exam Present: normal affect - Urinary Catheter Management Indwelling Urethral Catheter Cath placed during this visit: no <Maddison Lai - Last Filed: 05/06/18 13:17> Vital signs: Vital Signs 05/06/18 00:00 05/06/18 04:00 05/06/18 08:00 Temperature 97.9 F 97.6 F 98.0 F Pulse Rate 113 H 109 H 108 H Respiratory Rate 20 20 18 Blood Pressure 98/57 L 112/62 113/65 Pulse Oximetry 96 98 97 05/06/18 09:53 05/06/18 12:00 05/06/18 16:00 Temperature 97.7 F 97.7 F Pulse Rate 116 H 111 H Respiratory Rate 18 18 Blood Pressure 129/54 L 120/65 Pulse Oximetry 97 98 05/06/18 20:00 Temperature 97.7 F Pulse Rate 121 H Respiratory Rate 20 Blood Pressure 86/62 L Pulse Oximetry 95 Intake & Output 05/06/18 05/06/18 05/07/18 06:59 18:59 06:59 Intake Total 2310 / 2310 660 / 660 Output Total 600 / 600 Balance 1710 / 1710 660 / 660 Weight 121.7 kg Intake: IV 1350 / 1350 300 / 300 1/2 Normal Saline Inj 1,000 ML 1000 / 1000 100 / 100 @ 84 mls/hr IV.CONT .[id number] [facility] Rx#:[id number] Levaquin 750 mg Premix Inj 150 150 / 150 ML @ 100 mls/hr IV.SIG Q48H [facility] Rx#:[id number] Flagyl 500 MG Inj 100 ML @ 100 200 / 200 200 / 200 mls/hr IV.SIG Q6H [facility] Rx#: [id number] Oral 480 / 480 360 / 360 Oral Supplement 480 / 480 Output: Urine 500 / 500 Stool 100 / 100 Other: # Voids 2 1 # Incontinent Voids 2 # Urine Diapers 4 Date of Last Bowel Movement 05/05/18 05/06/18 # Bowel Movements 3 1 # Incontinent Bowel Movements 2 - Urinary Catheter Management Indwelling Urethral Catheter Cath placed during this visit: no <Brenden Sena - Last Filed: 05/06/18 22:22> Results - Labs CBC & Chem 7: 05/06/18 04:06 05/06/18 04:06 Laboratory Results - last 24 hr 05/05/18 05/06/18 05/06/18 13:21 04:06 04:06 WBC 5.3 RBC 3.22 L Hgb 9.4 L Hct 28.4 L MCV 88.0 MCH 29.0 MCHC 32.9 RDW 15.7 Plt Count 375 MPV 7.2 Prelim Diff (Auto) Slide review pending Neut % (Auto) 67.0 Lymph % (Auto) 22.9 [place] % (Auto) 7.9 Eos % (Auto) 1.9 Baso % (Auto) 0.3 Neut # (Auto) 3.6 Lymph # (Auto) 1.2 [place] # (Auto) 0.4 Eos # (Auto) 0.1 Baso # (Auto) 0.0 WBC Differential Manual diff final Seg Neuts % (Manual) 50 Band Neuts % (Manual) 21 H Lymphocytes % (Manual) 21 Monocytes % (Manual) 3 Metamyelocytes % (Man) 3 H Myelocytes % (Man) 2 H Abs Neuts (Manual) 4.0 Nucleated RBCs/100 WBC 1 H Differential Comment . Toxic Granulation 1+ H Dohle Bodies Present H Platelet Estimate Normal Platelet Morphology Normal Sodium 145 Potassium 3.4 L Chloride 118 H Carbon Dioxide 13.5 L Anion Gap 14 BUN 25 H Creatinine 2.46 H Estimated GFR 19 L Random Glucose 93 Lactic Acid 1.3 Calcium 7.3 L* Prot Corrected Calcium 8.8 Total Protein 4.5 L <Maddison Lai - Last Filed: 05/06/18 13:17> - Labs CBC & Chem 7: 05/06/18 04:06 05/06/18 04:06 Laboratory Results - last 24 hr 05/06/18 05/06/18 04:06 04:06 WBC 5.3 RBC 3.22 L Hgb 9.4 L Hct 28.4 L MCV 88.0 MCH 29.0 MCHC 32.9 RDW 15.7 Plt Count 375 MPV 7.2 Prelim Diff (Auto) Slide review pending Neut % (Auto) 67.0 Lymph % (Auto) 22.9 Bl[place] % (Auto) 7.9 Eos % (Auto) 1.9 Baso % (Auto) 0.3 Neut # (Auto) 3.6 Lymph # (Auto) 1.2 [place] # (Auto) 0.4 Eos # (Auto) 0.1 Baso # (Auto) 0.0 WBC Differential Manual diff final Seg Neuts % (Manual) 50 Band Neuts % (Manual) 21 H Lymphocytes % (Manual) 21 Monocytes % (Manual) 3 Metamyelocytes % (Man) 3 H Myelocytes % (Man) 2 H Abs Neuts (Manual) 4.0 Nucleated RBCs/100 WBC 1 H Differential Comment . Toxic Granulation 1+ H Dohle Bodies Present H Platelet Estimate Normal Platelet Morphology Normal Sodium 145 Potassium 3.4 L Chloride 118 H Carbon Dioxide 13.5 L Anion Gap 14 BUN 25 H Creatinine 2.46 H Estimated GFR 19 L Random Glucose 93 Calcium 7.3 L* Prot Corrected Calcium 8.8 Total Protein 4.5 L <Brenden Sena - Last Filed: 05/06/18 22:22> Assessment and Plan (1) Acute blood loss anemia Status: Acute Code(s): D62 - Acute posthemorrhagic anemia (2) Diverticulitis Status: Acute Code(s): K57.92 - Diverticulitis of intestine, part unspecified , without perforation or abscess without bleeding - Plan Anemia, acute GI bleed, bright red blood per rectum-patient denies noted bleeding hemoglobin 9.1 hematocrit 27.8 Diverticulitis- patiently currently on Flagyl and Levaquin IV Ileus - KUB done this morning revealed--> Multiple air-filled mildly dilated loops of small and large bowel which are relatively unchanged compared to previous examination consistent with possible persistent ileus. Clinical correlation is recommended. Patient reports having 3 soft bowel movements this morning bowel sounds are active tolerating clear liquid diet well. 05/06/2018 patient is resting in the bed, and states she is feeling better with no abdominal pain nausea or vomiting. Patient is beginning to get appetite so will advance diet and monitor for any acute abdominal pain nausea or vomiting. Patient has spoke with family members and has agreed for colonoscopy. Patient is planned for cystoscopy and renal stents for Tuesday so will tentatively have planned colonoscopy for Tuesday.m if she is stable from a GI standpoint with ileus. Plan to check KUB in the a.m. further recommendations to follow Patient has active bowel sounds and does continue with small loose diarrhea stools. Noted per initial CT scan suggestive of diverticulitis versus colitis with ileus. Plan: Diet full liquids for now Monitor labs with special attention to hemoglobin PPI, change to p.o. daily Jorge Hayward Plan for colonoscopy Tuesday.m. Pending KUB, symptoms. Supportive care Further recommendations to follow Patient was seen per myself and Dr. Sena, note was written on his behalf <Maddison Lai - Last Filed: 05/06/18 13:17> (1) Acute blood loss anemia Status: Acute Code(s): D62 - Acute posthemorrhagic anemia (2) Diverticulitis Status: Acute Code(s): K57.92 - Diverticulitis of intestine, part unspecified , without perforation or abscess without bleeding - Plan patient seen and examined agree with above continue current supportive care monitor labs Colonoscopy next week <Brenden Sena - Last Filed: 05/06/18 22:22>
[2018-05-07 07:13] LABS: Baso % (Auto) 0.3 % (0.0-2.0); Eos # (Auto) 0.1 th/mm3 (0.0-0.4); Eos % (Auto) 1.5 % (0.0-4.0); Hematocrit 26.6 % (35.0-46.0); Hemoglobin 9.1 gm/dL (11.6-15.3); Lymph # (Auto) 1.3 th/mm3 (1.0-4.8); Lymph % (Auto) 20.6 % (9.0-44.0); Mean Corpuscular HGB Conc 34.2 % (32.0-36.0); Mean Corpuscular Hemoglobin 29.6 pg (27.0-34.0); Mean Corpuscular Volume 86.5 fL (80.0-100.0); Mean Platelet Volume 6.9 fL (7.0-11.0); Mono # (Auto) 0.5 th/mm3 (0.0-0.9); Mono % (Auto) 8.3 % (0.0-8.0); Neut # (Auto) 4.5 th/mm3 (1.8-7.7); Neut % (Auto) 69.3 % (16.0-70.0); Platelet Count 357 th/mm3 (150-450); Red Blood Count 3.08 mil/mm3 (4.00-5.30); Red Cell Distribution Width 15.6 % (11.6-17.2); White Blood Count 6.5 th/mm3 (4.0-11.0)
[2018-05-07 07:27] LABS: INR 1.7 Ratio
[2018-05-07 07:41] LABS: Calcium 7.2 mg/dL (8.5-10.1); Carbon Dioxide 15.3 meq/L (21.0-32.0); Potassium 3.5 meq/L (3.5-5.1)
[2018-05-07 08:08] LABS: Total Protein 4.5 g/dL (6.4-8.2)
[2018-05-07 09:44] LABS: Dohle Bodies Present; Lymphocytes 17 % (9-44); Metamyelocytes 1 % (0-1); Monocytes 5 % (0-8); Platelet Estimate Normal (Normal); Platelet Morphology Clumped (Normal); Toxic Granulation 2+
--- NOTE | 2018-05-07 10:05 | P.PNIM ---
Subjective Interval history: Patient is laying down in bed. She says that her lower extremities feel heavy. She does not have any other complaints. Physical Exam Vital signs: Vital Signs 05/06/18 12:00 05/06/18 16:00 05/06/18 20:00 Temperature 97.7 F 97.7 F 97.7 F Pulse Rate 116 H 111 H 120 H Respiratory Rate 18 18 20 Blood Pressure 129/54 L 120/65 86/62 L Pulse Oximetry 98 95 05/07/18 00:00 05/07/18 04:00 05/07/18 08:00 Temperature 98.1 F 98.2 F 97.8 F Pulse Rate 118 H 112 H 98 H Respiratory Rate 20 20 18 Blood Pressure 121/56 L 103/57 L 115/63 Pulse Oximetry 95 96 98 Intake & Output 05/06/18 05/07/18 05/07/18 18:59 06:59 18:59 Intake Total 660 / 660 600 / 600 Balance 660 / 660 600 / 600 Weight 121.1 kg Intake: IV 300 / 300 200 / 200 1/2 Normal Saline Inj 1,000 ML 100 / 100 @ 84 mls/hr IV.CONT .[id number] [facility] Rx#:[id number] Flagyl 500 MG Inj 100 ML @ 100 200 / 200 200 / 200 mls/hr IV.SIG Q6H [facility] Rx#: [id number] Oral 360 / 360 400 / 400 Other: # Voids 1 5 Date of Last Bowel Movement 05/06/18 05/06/18 # Bowel Movements 1 Narrative: General patient in no acute distress HEENT extraocular movements are intact, clear oropharyngeal mucosa, no JVD Cardiovascular S1-S2 audible, irregularly irregular rhythm Respiratory clear to auscultation bilaterally Abdomen soft, obese, nontender, nondistended, hyperactive bowel sounds, patient states that she is passing gas and had a bowel movement this morning Extremities edema bilateral lower extremities up to the knees Neuro patient moves all 4 extremities sensation is intact bilaterally - Urinary Catheter Management Indwelling Urethral Catheter Cath placed during this visit: no Results - Labs CBC & Chem 7: 05/07/18 05:52 05/07/18 05:52 Laboratory Results - last 24 hr 05/07/18 05/07/18 05/07/18 05:52 05:52 05:52 WBC 6.5 RBC 3.08 L Hgb 9.1 L Hct 26.6 L MCV 86.5 MCH 29.6 MCHC 34.2 RDW 15.6 Plt Count 357 MPV 6.9 L Prelim Diff (Auto) Slide review pending Neut % (Auto) 69.3 Lymph % (Auto) 20.6 [place] % (Auto) 8.3 H Eos % (Auto) 1.5 Baso % (Auto) 0.3 Neut # (Auto) 4.5 Lymph # (Auto) 1.3 [place] # (Auto) 0.5 Eos # (Auto) 0.1 Baso # (Auto) 0.0 WBC Differential Manual diff final Seg Neuts % (Manual) 45 Band Neuts % (Manual) 31 H Lymphocytes % (Manual) 17 Monocytes % (Manual) 5 Basophils % (Manual) 1 Metamyelocytes % (Man) 1 Abs Neuts (Manual) 5.0 Differential Comment . Toxic Granulation 2+ H Dohle Bodies Present H Platelet Estimate Normal Platelet Morphology Clumped H PT 17.0 H INR 1.7 Sodium 144 Potassium 3.5 Chloride 118 H Carbon Dioxide 15.3 L Anion Gap 11 BUN 25 H Creatinine 2.53 H Estimated GFR 19 L Random Glucose 85 Calcium 7.2 L* Prot Corrected Calcium 8.7 Total Protein 4.5 L Assessment and Plan - Plan This patient is a 72-year-old female with a diagnosis of atrial fibrillation and was on Eliquis prior to admission, she was seen at our facility a couple of weeks ago where she was in acute kidney injury secondary to bilateral renal calculi causing obstruction and kidney failure. The patient was admitted and started on IV fluids. Her creatinine subsequently improved and the patient did not undergo any procedure by urology during that admission. The patient began having bloody bowel movements and some abdominal pain a few days ago and came into our emergency department for evaluation. Acute kidney injury with obstructing proximal ureteral calculus 1. Obstructing 10 mm right proximal ureteral calculus with hydronephrosis 2. Multiple nonobstructing left renal calculi. The plan from the urologist is to have the patient undergo cystoscopy, right retrograde pyelogram and right ureteral stent placement on Tuesday. She will also require subsequent outpatient shockwave lithotripsy. INR is 1.7. She will receive 2 FFP's tonight for the procedure tomorrow a.m. Acute kidney injury is likely secondary to volume loss from the suspected upper GI bleed, and possibly obstructive right-sided nephropathy. Nephrology was consulted and is also following the patient. She has a significant amount of lower extremity edema. She was started on Bumex and her IV fluids were held yesterday as per nephrology's recommendations. We appreciate the recommendations from nephrology. Acute GI bleed Ileus Diverticulitis The patient is being followed by GI. Hemoglobin is stable. GI had offered an upper endoscopy however the patient refused the procedure. As per GIs documentation the patient will likely need an outpatient endoscopy however no need for inpatient endoscopy as the patients bleeding appears to be stable. Aspirin and Eliquis have been held. The patient is passing gas and as mentioned above had a bowel movement yesterday morning. KUB does not show any significant change from previous imaging. Surgical team following the ileus we will continue to monitor her electrolytes and replace them as needed with caution given her acute kidney injury. We will continue IV antibiotics as well as Protonix. The patient has colitis and GI is now recommending a colonoscopy which will be scheduled for Tuesday. Hyperchloremic acidosis. The patient has a low bicarb of 13.5 on the patient's renal panel. This is likely secondary to hyperchloremia and also acute kidney injury. Will follow up with nephrology for further recommendations regarding the acute kidney injury. Acute symptomatic blood loss anemia secondary to upper GI bleed Goal is to keep the hemoglobin above 7. Currently her hemoglobin is 9.4 we will continue to monitor her hemoglobin. Continue Protonix. Atrial fibrillation Rate is currently under control. The patient's metoprolol was held due to low blood pressure from her current condition. Eliquis has been held because the patient has a active GI bleed. We will continue to monitor the patient on telemetry. No pharmacotherapy for DVT throat prophylaxis as the patient has an upper GI bleed. DC plan: Likely goes back to SNF. Will need clearance form GI specialist and also recommendations when to restart anticoagulation.
[2018-05-07] MEDS: Nystatin Liq 500,000 UNIT/5 ML UDC BUCCAL SCH ×4 (10:34→21:19)
[2018-05-07] MEDS: Senna/Docusate Sodium 8.6/50 MG Tablet PO SCH ×2 (10:34→21:16)
[2018-05-07] MEDS ORDERED: Sodium Chlor 0.9% Inj 250 ML IV.SIG SCH (11:00)
--- NOTE | 2018-05-07 11:37 | P.PNNP ---
Subjective Interval history: patient's condition is about the same. She is non oliguric. Slight increase in creatinine today. She is scheduled for cystoscopy and ureteral stent placement tomorrow. Physical Exam Vital signs: Vital Signs 05/06/18 12:00 05/06/18 16:00 05/06/18 20:00 Temperature 97.7 F 97.7 F 97.7 F Pulse Rate 116 H 111 H 120 H Respiratory Rate 18 18 20 Blood Pressure 129/54 L 120/65 86/62 L Pulse Oximetry 98 95 05/07/18 00:00 05/07/18 04:00 05/07/18 08:00 Temperature 98.1 F 98.2 F 97.8 F Pulse Rate 118 H 112 H 98 H Respiratory Rate 20 20 18 Blood Pressure 121/56 L 103/57 L 115/63 Pulse Oximetry 95 96 98 05/07/18 10:24 Temperature Pulse Rate Respiratory Rate Blood Pressure Pulse Oximetry 98 Intake & Output 05/06/18 05/07/18 05/07/18 18:59 06:59 18:59 Intake Total 660 / 660 600 / 600 Balance 660 / 660 600 / 600 Weight 121.1 kg Intake: IV 300 / 300 200 / 200 1/2 Normal Saline Inj 1,000 ML 100 / 100 @ 84 mls/hr IV.CONT .[id number] [facility] Rx#:[id number] Flagyl 500 MG Inj 100 ML @ 100 200 / 200 200 / 200 mls/hr IV.SIG Q6H [facility] Rx#: [id number] Oral 360 / 360 400 / 400 Other: # Voids 1 5 Date of Last Bowel Movement 05/06/18 05/06/18 # Bowel Movements 1 Narrative: General patient in no acute distress HEENT extraocular movements are intact, clear oropharyngeal mucosa, no JVD Cardiovascular S1-S2 audible, irregularly irregular rhythm Respiratory clear to auscultation bilaterally Abdomen soft, obese, nontender, nondistended, hyperactive bowel sounds, patient states that she is passing gas and had a bowel movement this morning Bilateral edema: 2-3+ Neuro patient moves all 4 extremities sensation is intact bilaterally - Urinary Catheter Management Indwelling Urethral Catheter Cath placed during this visit: no Assessment and Plan - Assessment (1) Acute kidney injury Code(s): N17.9 - Acute kidney failure, unspecified Status: Acute Plan: patient's right kidney may be better of the two, and now she has right sided obstruction. MAC could be due to obstructive uropathy. Also increased renal vein pressure due to fluid overload could be causing MAC. IVF stopped. Continue Bumex. Urology has been consulted. Cystoscopy and ureteral stent planned for Tuesday. Avoid nephrotoxic agents. (2) Renal calculi Code(s): N20.0 - Calculus of kidney Status: Acute Plan: Had bilateral renal calculi, now has right ureteral stone. Urology has been consulted. Scheduled for procedure tomorrow. (3) Hydronephrosis Code(s): N13.30 - Unspecified hydronephrosis Status: Acute Plan: Due to ureteral stone. See above. (4) Acute blood loss anemia Code(s): D62 - Acute posthemorrhagic anemia Status: Acute - Plan Hemoglobin is stable. GI on the case.
[2018-05-07] MEDS: Acetaminophen 325 MG Tablet PO PRN ×2 (13:30→20:02)
--- NOTE | 2018-05-07 13:38 | P.PNGI ---
Subjective Interval history: Resting in the bed, morbid obesity, states no obvious nausea vomiting or abdominal pain <JoelleSelamMaddison Corwin - Last Filed: 05/07/18 13:45> Physical Exam Vital signs: Vital Signs 05/06/18 16:00 05/06/18 20:00 05/07/18 00:00 Temperature 97.7 F 97.7 F 98.1 F Pulse Rate 111 H 120 H 118 H Respiratory Rate 18 20 20 Blood Pressure 120/65 86/62 L 121/56 L Pulse Oximetry 98 95 95 05/07/18 04:00 05/07/18 08:00 05/07/18 10:24 Temperature 98.2 F 97.8 F Pulse Rate 112 H 98 H Respiratory Rate 20 18 Blood Pressure 103/57 L 115/63 Pulse Oximetry 96 98 98 Intake & Output 05/06/18 05/07/18 05/07/18 18:59 06:59 18:59 Intake Total 660 / 660 600 / 600 Balance 660 / 660 600 / 600 Weight 121.1 kg Intake: IV 300 / 300 200 / 200 1/2 Normal Saline Inj 1,000 ML 100 / 100 @ 84 mls/hr IV.CONT .[id number] [facility] Rx#:[id number] Flagyl 500 MG Inj 100 ML @ 100 200 / 200 200 / 200 mls/hr IV.SIG Q6H [facility] Rx#: [id number] Oral 360 / 360 400 / 400 Other: # Voids 1 5 Date of Last Bowel Movement 05/06/18 05/06/18 05/07/18 # Bowel Movements 1 - Constitutional no acute distress, morbidly obese - Routine HEENT Exam Head: Present: normocephalic ENT: Present: mucous membranes moist - Routine Respiratory Exam Present: accessory muscle use - Routine Cardiovascular Exam Present: S1 (No shortness of breath), S2 - Routine Abdominal Exam Present: soft (Obese, round, soft bowel sounds no obvious tenderness) - Urinary Catheter Management Indwelling Urethral Catheter Cath placed during this visit: no <Maddison Lai Corwin - Last Filed: 05/07/18 13:45> Vital signs: Vital Signs 05/06/18 20:00 05/07/18 00:00 05/07/18 04:00 Temperature 97.7 F 98.1 F 98.2 F Pulse Rate 120 H 118 H 112 H Respiratory Rate 20 20 20 Blood Pressure 86/62 L 121/56 L 103/57 L Pulse Oximetry 95 95 96 05/07/18 08:00 05/07/18 10:24 Temperature 97.8 F Pulse Rate 98 H Respiratory Rate 18 Blood Pressure 115/63 Pulse Oximetry 98 98 Intake & Output 05/06/18 05/07/18 05/07/18 18:59 06:59 18:59 Intake Total 660 / 660 600 / 600 100 / 100 Balance 660 / 660 600 / 600 100 / 100 Weight 121.1 kg Intake: IV 300 / 300 200 / 200 100 / 100 1/2 Normal Saline Inj 1,000 ML 100 / 100 @ 84 mls/hr IV.CONT .[id number] [facility] Rx#:[id number] Flagyl 500 MG Inj 100 ML @ 100 200 / 200 200 / 200 100 / 100 mls/hr IV.SIG Q6H [facility] Rx#: [id number] Oral 360 / 360 400 / 400 Other: # Voids 1 5 Date of Last Bowel Movement 05/06/18 05/06/18 05/07/18 # Bowel Movements 1 - Urinary Catheter Management Indwelling Urethral Catheter Cath placed during this visit: no <Brenden Sena E - Last Filed: 05/07/18 17:22> Results - Labs CBC & Chem 7: 05/07/18 05:52 05/07/18 05:52 Laboratory Results - last 24 hr 05/07/18 05/07/18 05/07/18 05:52 05:52 05:52 WBC 6.5 RBC 3.08 L Hgb 9.1 L Hct 26.6 L MCV 86.5 MCH 29.6 MCHC 34.2 RDW 15.6 Plt Count 357 MPV 6.9 L Prelim Diff (Auto) Slide review pending Neut % (Auto) 69.3 Lymph % (Auto) 20.6 [place] % (Auto) 8.3 H Eos % (Auto) 1.5 Baso % (Auto) 0.3 Neut # (Auto) 4.5 Lymph # (Auto) 1.3 [place] # (Auto) 0.5 Eos # (Auto) 0.1 Baso # (Auto) 0.0 WBC Differential Manual diff final Seg Neuts % (Manual) 45 Band Neuts % (Manual) 31 H Lymphocytes % (Manual) 17 Monocytes % (Manual) 5 Basophils % (Manual) 1 Metamyelocytes % (Man) 1 Abs Neuts (Manual) 5.0 Differential Comment . Toxic Granulation 2+ H Dohle Bodies Present H Platelet Estimate Normal Platelet Morphology Clumped H PT 17.0 H INR 1.7 Sodium 144 Potassium 3.5 Chloride 118 H Carbon Dioxide 15.3 L Anion Gap 11 BUN 25 H Creatinine 2.53 H Estimated GFR 19 L Random Glucose 85 Calcium 7.2 L* Prot Corrected Calcium 8.7 Total Protein 4.5 L <Maddison Lai - Last Filed: 05/07/18 13:45> - Labs CBC & Chem 7: 05/07/18 05:52 05/07/18 05:52 Laboratory Results - last 24 hr 05/07/18 05/07/18 05/07/18 05:52 05:52 05:52 WBC 6.5 RBC 3.08 L Hgb 9.1 L Hct 26.6 L MCV 86.5 MCH 29.6 MCHC 34.2 RDW 15.6 Plt Count 357 MPV 6.9 L Prelim Diff (Auto) Slide review pending Neut % (Auto) 69.3 Lymph % (Auto) 20.6 [place] % (Auto) 8.3 H Eos % (Auto) 1.5 Baso % (Auto) 0.3 Neut # (Auto) 4.5 Lymph # (Auto) 1.3 [place] # (Auto) 0.5 Eos # (Auto) 0.1 Baso # (Auto) 0.0 WBC Differential Manual diff final Seg Neuts % (Manual) 45 Band Neuts % (Manual) 31 H Lymphocytes % (Manual) 17 Monocytes % (Manual) 5 Basophils % (Manual) 1 Metamyelocytes % (Man) 1 Abs Neuts (Manual) 5.0 Differential Comment . Toxic Granulation 2+ H Dohle Bodies Present H Platelet Estimate Normal Platelet Morphology Clumped H PT 17.0 H INR 1.7 Sodium 144 Potassium 3.5 Chloride 118 H Carbon Dioxide 15.3 L Anion Gap 11 BUN 25 H Creatinine 2.53 H Estimated GFR 19 L Random Glucose 85 Calcium 7.2 L* Prot Corrected Calcium 8.7 Total Protein 4.5 L - Imaging Impressions Abdomen X-Ray 05/07/18 00:00 CONCLUSION: Slightly decreased bowel distention today. <Brenden Sena - Last Filed: 05/07/18 17:22> Assessment and Plan (1) Acute blood loss anemia Status: Acute Code(s): D62 - Acute posthemorrhagic anemia (2) Diverticulitis Status: Acute Code(s): K57.92 - Diverticulitis of intestine, part unspecified , without perforation or abscess without bleeding - Plan 05/06/2018 patient is resting in the bed, and states she is feeling better with no abdominal pain nausea or vomiting. Patient is beginning to get appetite so will advance diet and monitor for any acute abdominal pain nausea or vomiting. Patient has spoke with family members and has agreed for colonoscopy. Patient is planned for cystoscopy and renal stents for Tuesday so will tentatively have planned colonoscopy for Tuesday a.m if she is stable from a GI standpoint with ileus. Plan to check KUB in the a.m. further recommendations to follow Patient has active bowel sounds and does continue with small loose diarrhea stools. Noted per initial CT scan suggestive of diverticulitis versus colitis with ileus. 05/07/2018 patient is resting in the bed states her symptoms are better no nausea no vomiting no abdominal pain. Patient has been tolerating full liquid diet without any difficulty. Plan colonoscopy Tuesday a.m.. KUB pending, looking for ileus to resolve, gradual improvement continue with symptoms. Patient has cystoscopy and renal stents plan for tomorrow. Patient notes loose stool 1 but much improvement. INR check 1.7 today. Will follow daily , patient may need FFP before colonoscopy procedure Plan: Diet full liquids Monitor labs and number of stools PPI, Flagyl, Levaquin Encourage patient to move around in bed and be up in chair if possible Consider /plan for colonoscopy Tuesday a.m. follow PT/INR Supportive care Patient was seen per myself and Dr. Sena, note was written on his behalf <Maddison Lai M - Last Filed: 05/07/18 13:45> (1) Acute blood loss anemia Status: Acute Code(s): D62 - Acute posthemorrhagic anemia (2) Diverticulitis Status: Acute Code(s): K57.92 - Diverticulitis of intestine, part unspecified , without perforation or abscess without bleeding - Plan Patient seen and examined Agree with above Continue with current supportive care Monitor labs Plan for colonoscopy on Tuesday <Brenden Sena E - Last Filed: 05/07/18 17:22>
--- NOTE | 2018-05-07 15:52 | XR ---
EXAM DATE: 05/07/2018 3:46 PM EDT AGE/SEX: 72 years / Female INDICATIONS: Ileus. CLINICAL DATA: This is the patient's subsequent encounter. Patient reports that signs and symptoms h ave been present for 2 days and indicates a pain score of 0/10. MEDICAL/SURGICAL HISTORY: . A-fib None. COMPARISON: C, ABDOMEN 1V KUB, 05/05/2018. . FINDINGS: There is persistent though slightly decreased bowel dilatation with multiple dilated loops of small bowel seen. The osseous structures are intact. Chronic deformity right hip again noted. CONCLUSION: Slightly decreased bowel distention today. Electronically signed by: Abdirahman Rodriguez MD 05/07/2018 3:51 PM EDT
[2018-05-08 05:44] LABS: Baso % (Auto) 0.2 % (0.0-2.0); Eos % (Auto) 0.9 % (0.0-4.0); Hematocrit 26.5 % (35.0-46.0); Lymph # (Auto) 1.2 th/mm3 (1.0-4.8); Mean Corpuscular HGB Conc 34.1 % (32.0-36.0); Mean Corpuscular Hemoglobin 29.3 pg (27.0-34.0); Mean Corpuscular Volume 86.1 fL (80.0-100.0); Mean Platelet Volume 6.8 fL (7.0-11.0); Mono # (Auto) 0.6 th/mm3 (0.0-0.9); Mono % (Auto) 10.2 % (0.0-8.0); Neut # (Auto) 3.8 th/mm3 (1.8-7.7); Neut % (Auto) 67.7 % (16.0-70.0); Platelet Count 378 th/mm3 (150-450); Red Blood Count 3.08 mil/mm3 (4.00-5.30); Red Cell Distribution Width 15.4 % (11.6-17.2); White Blood Count 5.6 th/mm3 (4.0-11.0)
[2018-05-08 05:47] LABS: INR 1.5 Ratio; Prothrombin Time 15.4 sec (9.8-11.6)
[2018-05-08 06:11] LABS: Albumin 1.4 g/dL (3.4-5.0); Calcium 7.5 mg/dL (8.5-10.1); Carbon Dioxide 18.1 meq/L (21.0-32.0); Phosphorus 4.2 mg/dL (2.5-4.9); Potassium 3.7 meq/L (3.5-5.1)
[2018-05-08 08:51] LABS: Lymphocytes 10 % (9-44); Metamyelocytes 1 % (0-1); Monocytes 4 % (0-8); Myelocytes 2 % (0-0); Platelet Estimate Normal (Normal); Platelet Morphology Normal (Normal); Toxic Granulation 1+
[2018-05-08] MEDS: Nystatin Liq 500,000 UNIT/5 ML UDC BUCCAL SCH ×4 (09:17→21:25)
[2018-05-08] MEDS: Senna/Docusate Sodium 8.6/50 MG Tablet PO SCH ×2 (09:17→21:23)
--- NOTE | 2018-05-08 09:31 | P.PNNP ---
Subjective Interval history: To have Cystoscopy and right ureteral stent placement today. Edema has improved. Physical Exam Vital signs: Vital Signs 05/07/18 10:24 05/07/18 12:00 05/07/18 16:00 Temperature 97.5 F L Pulse Rate 111 H 123 H Respiratory Rate 18 Blood Pressure 100/63 Pulse Oximetry 98 97 05/07/18 18:42 05/07/18 20:00 05/08/18 00:00 Temperature 98.4 F 97.6 F 97.9 F Pulse Rate 114 H 118 H 121 H Respiratory Rate 18 22 18 Blood Pressure 118/56 L 119/63 115/57 L Pulse Oximetry 98 97 97 05/08/18 00:09 05/08/18 00:26 05/08/18 02:25 Temperature 97.9 F 97.8 F 98.2 F Pulse Rate 118 H 111 H 113 H Respiratory Rate 16 18 18 Blood Pressure 115/57 L 110/61 113/59 L Pulse Oximetry 97 97 96 05/08/18 02:32 05/08/18 02:48 05/08/18 02:50 Temperature 98.2 F 98.2 F 98.2 F Pulse Rate 113 H 113 H 113 H Respiratory Rate 18 18 18 Blood Pressure 113/59 L 119/58 L 119/58 L Pulse Oximetry 96 97 97 05/08/18 04:00 05/08/18 08:00 Temperature 98.0 F Pulse Rate 111 H 113 H Respiratory Rate 16 Blood Pressure 138/64 Pulse Oximetry 96 Intake & Output 05/07/18 05/08/18 05/08/18 18:59 06:59 18:59 Intake Total 605 / 605 930 / 930 Balance 605 / 605 930 / 930 Weight 118.2 kg Intake: IV 200 / 200 450 / 450 Levaquin 750 mg Premix Inj 150 150 / 150 ML @ 100 mls/hr IV.SIG Q48H [facility] Rx#:[id number] NS Inj 250 ML @ 15 mls/hr IV. 100 / 100 SIG ONCE [facility] Rx#:[id number] Flagyl 500 MG Inj 100 ML @ 100 200 / 200 200 / 200 mls/hr IV.SIG Q6H [facility] Rx#: [id number] Oral 405 / 405 480 / 480 Intake (Blood Product) Amt 0 / 0 Plasma Thawed 5 Day Acda Unit 0 / 0 [id number] Plasma Thawed 5 Day Cp2d Unit 0 / 0 [id number] Other: # Voids 2 # Incontinent Voids 5 Date of Last Bowel Movement 05/07/18 05/08/18 # Bowel Movements 2 # Incontinent Bowel Movements 1 Narrative: General patient in no acute distress HEENT extraocular movements are intact, clear oropharyngeal mucosa, no JVD Cardiovascular S1-S2 audible, irregularly irregular rhythm Respiratory clear to auscultation bilaterally Abdomen soft, obese, nontender, nondistended, hyperactive bowel sounds, patient states that she is passing gas and had a bowel movement this morning Bilateral edema: 2-3+ Neuro patient moves all 4 extremities sensation is intact bilaterally - Urinary Catheter Management Indwelling Urethral Catheter Cath placed during this visit: no Assessment and Plan - Assessment (1) Acute kidney injury Code(s): N17.9 - Acute kidney failure, unspecified Status: Acute Plan: patient's right kidney may be better of the two, and now she has right sided obstruction. MAC could be due to obstructive uropathy. Also increased renal vein pressure due to fluid overload could be causing MAC. IVF stopped. Continue Bumex. Urology has been consulted. Cystoscopy and ureteral stent planned for today. Avoid nephrotoxic agents. (2) Renal calculi Code(s): N20.0 - Calculus of kidney Status: Acute Plan: Had bilateral renal calculi, now has right ureteral stone. Urology has been consulted. Scheduled for procedure today. (3) Hydronephrosis Code(s): N13.30 - Unspecified hydronephrosis Status: Acute Plan: Due to ureteral stone. See above. (4) Acute blood loss anemia Code(s): D62 - Acute posthemorrhagic anemia Status: Acute - Plan Hemoglobin is stable. GI on the case.
--- NOTE | 2018-05-08 11:26 | P.PNIM ---
Subjective Interval history: Patient reports persistent flank pain. Otherwise no new issues. Physical Exam Vital signs: Vital Signs 05/07/18 12:00 05/07/18 16:00 05/07/18 18:42 Temperature 97.5 F L 98.4 F Pulse Rate 111 H 123 H 114 H Respiratory Rate 18 18 Blood Pressure 100/63 118/56 L Pulse Oximetry 97 98 05/07/18 20:00 05/08/18 00:00 05/08/18 00:09 Temperature 97.6 F 97.9 F 97.9 F Pulse Rate 118 H 121 H 118 H Respiratory Rate 22 18 16 Blood Pressure 119/63 115/57 L 115/57 L Pulse Oximetry 97 97 97 05/08/18 00:26 05/08/18 02:25 05/08/18 02:32 Temperature 97.8 F 98.2 F 98.2 F Pulse Rate 111 H 113 H 113 H Respiratory Rate 18 18 18 Blood Pressure 110/61 113/59 L 113/59 L Pulse Oximetry 97 96 96 05/08/18 02:48 05/08/18 02:50 05/08/18 04:00 Temperature 98.2 F 98.2 F Pulse Rate 113 H 113 H 111 H Respiratory Rate 18 18 Blood Pressure 119/58 L 119/58 L Pulse Oximetry 97 97 05/08/18 08:00 Temperature 98.0 F Pulse Rate 113 H Respiratory Rate 16 Blood Pressure 138/64 Pulse Oximetry 96 Intake & Output 05/07/18 05/08/18 05/08/18 18:59 06:59 18:59 Intake Total 605 / 605 930 / 930 100 / 100 Balance 605 / 605 930 / 930 100 / 100 Weight 118.2 kg Intake: IV 200 / 200 450 / 450 100 / 100 Levaquin 750 mg Premix Inj 150 150 / 150 ML @ 100 mls/hr IV.SIG Q48H [facility] Rx#:[id number] NS Inj 250 ML @ 15 mls/hr IV. 100 / 100 SIG ONCE [facility] Rx#:[id number] Flagyl 500 MG Inj 100 ML @ 100 200 / 200 200 / 200 100 / 100 mls/hr IV.SIG Q6H [facility] Rx#: [id number] Oral 405 / 405 480 / 480 Intake (Blood Product) Amt 0 / 0 Plasma Thawed 5 Day Acda Unit 0 / 0 [id number] Plasma Thawed 5 Day Cp2d Unit 0 / 0 [id number] Other: # Voids 2 # Incontinent Voids 5 Date of Last Bowel Movement 05/07/18 05/08/18 05/07/18 # Bowel Movements 2 # Incontinent Bowel Movements 1 Narrative: GENERAL: This is a well-nourished, well-developed patient, in no apparent distress. CARDIOVASCULAR: Normal rate and regular rhythm without murmurs, gallops, or rubs. RESPIRATORY: Good respiratory efforts. Breath sounds equal and clear to auscultation bilaterally. GASTROINTESTINAL: Abdomen soft, non-tender, non-distended. Normal active bowel sounds MUSCULOSKELETAL: 2+ bilateral lower extremity edema NEURO: Alert & Oriented x4 to person, place, time, situation. Moves all ext x4 PSYCH: Appropriate mood and affect. - Urinary Catheter Management Indwelling Urethral Catheter Cath placed during this visit: no Results - Labs CBC & Chem 7: 05/08/18 03:28 05/08/18 03:28 Laboratory Results - last 24 hr 05/01/18 05/07/18 05/08/18 19:40 10:32 03:28 WBC RBC Hgb Hct MCV MCH MCHC RDW Plt Count MPV Prelim Diff (Auto) Neut % (Auto) Lymph % (Auto) [place] % (Auto) Eos % (Auto) Baso % (Auto) Neut # (Auto) Lymph # (Auto) [place] # (Auto) Eos # (Auto) Baso # (Auto) WBC Differential Seg Neuts % (Manual) Band Neuts % (Manual) Lymphocytes % (Manual) Monocytes % (Manual) Metamyelocytes % (Man) Myelocytes % (Man) Abs Neuts (Manual) Differential Comment Toxic Granulation Platelet Estimate Platelet Morphology PT INR Sodium 144 Potassium 3.7 Chloride 113 H Carbon Dioxide 18.1 L Anion Gap 13 BUN 26 H Creatinine 2.69 H Estimated GFR 17 L Random Glucose 99 Calcium 7.5 L Phosphorus 4.2 Albumin 1.4 L MTS Gel Crossmatch See Detail Blood Bank Comment 05/08/18 05/08/18 03:28 03:28 WBC 5.6 RBC 3.08 L Hgb 9.0 L Hct 26.5 L MCV 86.1 MCH 29.3 MCHC 34.1 RDW 15.4 Plt Count 378 MPV 6.8 L Prelim Diff (Auto) Slide review pending Neut % (Auto) 67.7 Lymph % (Auto) 21.0 [place] % (Auto) 10.2 H Eos % (Auto) 0.9 Baso % (Auto) 0.2 Neut # (Auto) 3.8 Lymph # (Auto) 1.2 [place] # (Auto) 0.6 Eos # (Auto) 0.0 Baso # (Auto) 0.0 WBC Differential Manual diff final Seg Neuts % (Manual) 62 Band Neuts % (Manual) 21 H Lymphocytes % (Manual) 10 Monocytes % (Manual) 4 Metamyelocytes % (Man) 1 Myelocytes % (Man) 2 H Abs Neuts (Manual) 4.8 Differential Comment . Toxic Granulation 1+ H Platelet Estimate Normal Platelet Morphology Normal PT 15.4 H INR 1.5 Sodium Potassium Chloride Carbon Dioxide Anion Gap BUN Creatinine Estimated GFR Random Glucose Calcium Phosphorus Albumin MTS Gel Crossmatch Blood Bank Comment - Imaging Impressions Abdomen X-Ray 05/07/18 00:00 CONCLUSION: Slightly decreased bowel distention today. Assessment and Plan - Plan 72-year-old female with a diagnosis of atrial fibrillation and was on Eliquis prior to admission, she was seen at our facility a couple of weeks ago where she was in acute kidney injury secondary to bilateral renal calculi causing obstruction and kidney failure. The patient was admitted and started on IV fluids. Her creatinine subsequently improved and the patient did not undergo any procedure by urology during that admission. The patient began having bloody bowel movements and some abdominal pain a few days ago and came into our emergency department for evaluation. Acute kidney injury with obstructing proximal ureteral calculus 1. Obstructing 10 mm right proximal ureteral calculus with hydronephrosis 2. Multiple nonobstructing left renal calculi. Plan for cystoscopy, right retrograde pyelogram, lithotripsy, and right ureteral stent placement today Acute kidney injury is likely secondary to volume loss from the suspected upper GI bleed, and possibly obstructive right-sided nephropathy. Nephrology was consulted and is also following the patient. She has a significant amount of lower extremity edema. She was started on Bumex. We appreciate the recommendations from nephrology. Acute GI bleed Ileus Diverticulitis The patient is being followed by GI. Hemoglobin is stable. GI had offered an upper endoscopy however the patient refused the procedure. Aspirin and Eliquis have been held. Patient is currently refusing colonoscopy. This will be scheduled outpatient with GI follow-up. Hyperchloremic acidosis. This is likely secondary to hyperchloremia and also acute kidney injury. Will follow up with nephrology for further recommendations regarding the acute kidney injury. Acute symptomatic blood loss anemia secondary to upper GI bleed Goal is to keep the hemoglobin above 7. H&H stable. continue to monitor her hemoglobin. Continue Protonix. Atrial fibrillation Rate is currently under control. The patient's metoprolol was held due to low blood pressure from her current condition. Eliquis has been held because the patient has a active GI bleed. We will continue to monitor the patient on telemetry. No pharmacotherapy for DVT throat prophylaxis as the patient had GI bleed. Discharge Planning: May need SNF placement. PT to aung.
--- NOTE | 2018-05-08 11:45 | US ---
EXAM DATE: 05/08/2018 11:40 AM EDT AGE/SEX: 72 years / Female INDICATIONS: Bilateral lower extremity edema. CLINICAL DATA: This is the patient's initial encounter. Patient reports that signs and symptoms have been present for 2 days and indicates a pain score of 0/10. MEDICAL/SURGICAL HISTORY: . Atrial fibrillation on Eliquis. Kidney stones. GI bleed. None. COMPARISON: No prior exams available for comparison. TECHNIQUE: Venous ultrasound of both lower extremities was performed from the inguinal ligament to t he proximal calf. Real-time, color Doppler and spectral tracing, compression and augmentation techni ques were used. FINDINGS: Right Leg: Normal compression of the deep venous system from the inguinal region to the proximal [place] f. No echogenic clot is seen. Normal response of the venous system to augmentation and respiration. Left Leg: Normal compression of the deep venous system from the inguinal region to the proximal calf . No echogenic clot is seen. Normal response of the venous system to augmentation and respiration. Other: None. CONCLUSION: 1. No sonographic evidence for lower extremity DVT. Electronically signed by: Sushant Armando MD 05/08/2018 11:43 AM EDT
--- NOTE | 2018-05-08 11:46 | P.PNGI ---
Subjective Interval history: Patient is resting in the bed currently n.p.o. waiting on her surgical procedure , cystoscopy, unknown timing for now Denies any obvious bleeding, no nausea no vomiting no abdominal pain <Maddison Lai - Last Filed: 05/08/18 11:48> Physical Exam Vital signs: Vital Signs 05/07/18 12:00 05/07/18 16:00 05/07/18 18:42 Temperature 97.5 F L 98.4 F Pulse Rate 111 H 123 H 114 H Respiratory Rate 18 18 Blood Pressure 100/63 118/56 L Pulse Oximetry 97 98 05/07/18 20:00 05/08/18 00:00 05/08/18 00:09 Temperature 97.6 F 97.9 F 97.9 F Pulse Rate 118 H 121 H 118 H Respiratory Rate 22 18 16 Blood Pressure 119/63 115/57 L 115/57 L Pulse Oximetry 97 97 97 05/08/18 00:26 05/08/18 02:25 05/08/18 02:32 Temperature 97.8 F 98.2 F 98.2 F Pulse Rate 111 H 113 H 113 H Respiratory Rate 18 18 18 Blood Pressure 110/61 113/59 L 113/59 L Pulse Oximetry 97 96 96 05/08/18 02:48 05/08/18 02:50 05/08/18 04:00 Temperature 98.2 F 98.2 F Pulse Rate 113 H 113 H 111 H Respiratory Rate 18 18 Blood Pressure 119/58 L 119/58 L Pulse Oximetry 97 97 05/08/18 08:00 Temperature 98.0 F Pulse Rate 113 H Respiratory Rate 16 Blood Pressure 138/64 Pulse Oximetry 96 Intake & Output 05/07/18 05/08/18 05/08/18 18:59 06:59 18:59 Intake Total 605 / 605 930 / 930 100 / 100 Balance 605 / 605 930 / 930 100 / 100 Weight 118.2 kg Intake: IV 200 / 200 450 / 450 100 / 100 Levaquin 750 mg Premix Inj 150 150 / 150 ML @ 100 mls/hr IV.SIG Q48H [facility] Rx#:[id number] NS Inj 250 ML @ 15 mls/hr IV. 100 / 100 SIG ONCE [facility] Rx#:[id number] Flagyl 500 MG Inj 100 ML @ 100 200 / 200 200 / 200 100 / 100 mls/hr IV.SIG Q6H [facility] Rx#: [id number] Oral 405 / 405 480 / 480 Intake (Blood Product) Amt 0 / 0 Plasma Thawed 5 Day Acda Unit 0 / 0 [id number] Plasma Thawed 5 Day Cp2d Unit 0 / 0 [id number] Other: # Voids 2 # Incontinent Voids 5 Date of Last Bowel Movement 05/07/18 05/08/18 05/07/18 # Bowel Movements 2 # Incontinent Bowel Movements 1 - Constitutional no acute distress, morbidly obese, disheveled - Routine HEENT Exam ENT: Present: mucous membranes moist - Routine Neck Exam Present: supple - Routine Respiratory Exam Present: accessory muscle use - Routine Cardiovascular Exam Present: S1 (No obvious shortness of breath), S2 - Routine Abdominal Exam Present: soft (Round, obese, bowel sounds active no obvious abdominal pain) - Urinary Catheter Management Indwelling Urethral Catheter Cath placed during this visit: no <Maddison Lai - Last Filed: 05/08/18 11:48> Vital signs: Vital Signs 05/07/18 18:42 05/07/18 20:00 05/08/18 00:00 Temperature 98.4 F 97.6 F 97.9 F Pulse Rate 114 H 118 H 121 H Respiratory Rate 18 22 18 Blood Pressure 118/56 L 119/63 115/57 L Pulse Oximetry 98 97 97 05/08/18 00:09 05/08/18 00:26 05/08/18 02:25 Temperature 97.9 F 97.8 F 98.2 F Pulse Rate 118 H 111 H 113 H Respiratory Rate 16 18 18 Blood Pressure 115/57 L 110/61 113/59 L Pulse Oximetry 97 97 96 05/08/18 02:32 05/08/18 02:48 05/08/18 02:50 Temperature 98.2 F 98.2 F 98.2 F Pulse Rate 113 H 113 H 113 H Respiratory Rate 18 18 18 Blood Pressure 113/59 L 119/58 L 119/58 L Pulse Oximetry 96 97 97 05/08/18 04:00 05/08/18 07:54 05/08/18 08:00 Temperature 98.0 F Pulse Rate 111 H 110 H 113 H Respiratory Rate 16 Blood Pressure 138/64 Pulse Oximetry 96 05/08/18 15:03 05/08/18 15:15 05/08/18 15:30 Temperature 97.4 F L Pulse Rate 114 H 112 H 112 H Respiratory Rate 12 17 12 Blood Pressure 107/60 119/78 130/85 Pulse Oximetry 97 97 97 05/08/18 15:45 05/08/18 16:00 05/08/18 16:17 Temperature 97.1 F L Pulse Rate 110 H 110 H Respiratory Rate 12 16 Blood Pressure 132/84 125/78 Pulse Oximetry 97 98 97 Intake & Output 05/07/18 05/08/18 05/08/18 18:59 06:59 18:59 Intake Total 605 / 605 930 / 930 1000 / 1000 Output Total 131 / 131 Balance 605 / 605 930 / 930 869 / 869 Weight 118.2 kg Intake: IV 200 / 200 450 / 450 200 / 200 Levaquin 750 mg Premix Inj 150 150 / 150 ML @ 100 mls/hr IV.SIG Q48H [facility] Rx#:[id number] NS Inj 250 ML @ 15 mls/hr IV. 100 / 100 0 / 0 SIG ONCE [facility] Rx#:[id number] Flagyl 500 MG Inj 100 ML @ 100 200 / 200 200 / 200 200 / 200 mls/hr IV.SIG Q6H [facility] Rx#: [id number] Oral 405 / 405 480 / 480 Anesthesia Amount 800 / 800 Intake (Blood Product) Amt 0 / 0 Plasma Thawed 5 Day Acda Unit 0 / 0 [id number] Plasma Thawed 5 Day Cp2d Unit 0 / 0 [id number] Output: Estimated Blood Loss 1 / 1 Urine Amount (Catheter) 130 / 130 Indwelling Urethral Catheter 130 / 130 Other: # Voids 2 # Incontinent Voids 5 3 Date of Last Bowel Movement 05/07/18 05/08/18 05/07/18 # Bowel Movements 2 # Incontinent Bowel Movements 1 1 - Urinary Catheter Management Indwelling Urethral Catheter Cath placed during this visit: no <Ceci Burton - Last Filed: 05/08/18 18:13> Results - Labs CBC & Chem 7: 05/08/18 03:28 05/08/18 03:28 Laboratory Results - last 24 hr 05/01/18 05/07/18 05/08/18 19:40 10:32 03:28 WBC RBC Hgb Hct MCV MCH MCHC RDW Plt Count MPV Prelim Diff (Auto) Neut % (Auto) Lymph % (Auto) [place] % (Auto) Eos % (Auto) Baso % (Auto) Neut # (Auto) Lymph # (Auto) [place] # (Auto) Eos # (Auto) Baso # (Auto) WBC Differential Seg Neuts % (Manual) Band Neuts % (Manual) Lymphocytes % (Manual) Monocytes % (Manual) Metamyelocytes % (Man) Myelocytes % (Man) Abs Neuts (Manual) Differential Comment Toxic Granulation Platelet Estimate Platelet Morphology PT INR Sodium 144 Potassium 3.7 Chloride 113 H Carbon Dioxide 18.1 L Anion Gap 13 BUN 26 H Creatinine 2.69 H Estimated GFR 17 L Random Glucose 99 Calcium 7.5 L Phosphorus 4.2 Albumin 1.4 L MTS Gel Crossmatch See Detail Blood Bank Comment 05/08/18 05/08/18 03:28 03:28 WBC 5.6 RBC 3.08 L Hgb 9.0 L Hct 26.5 L MCV 86.1 MCH 29.3 MCHC 34.1 RDW 15.4 Plt Count 378 MPV 6.8 L Prelim Diff (Auto) Slide review pending Neut % (Auto) 67.7 Lymph % (Auto) 21.0 [place] % (Auto) 10.2 H Eos % (Auto) 0.9 Baso % (Auto) 0.2 Neut # (Auto) 3.8 Lymph # (Auto) 1.2 [place] # (Auto) 0.6 Eos # (Auto) 0.0 Baso # (Auto) 0.0 WBC Differential Manual diff final Seg Neuts % (Manual) 62 Band Neuts % (Manual) 21 H Lymphocytes % (Manual) 10 Monocytes % (Manual) 4 Metamyelocytes % (Man) 1 Myelocytes % (Man) 2 H Abs Neuts (Manual) 4.8 Differential Comment . Toxic Granulation 1+ H Platelet Estimate Normal Platelet Morphology Normal PT 15.4 H INR 1.5 Sodium Potassium Chloride Carbon Dioxide Anion Gap BUN Creatinine Estimated GFR Random Glucose Calcium Phosphorus Albumin MTS Gel Crossmatch Blood Bank Comment - Imaging Impressions Abdomen X-Ray 05/07/18 00:00 CONCLUSION: Slightly decreased bowel distention today. <Maddison Lai - Last Filed: 05/08/18 11:48> - Labs CBC & Chem 7: 05/08/18 03:28 05/08/18 03:28 Laboratory Results - last 24 hr 05/01/18 05/07/18 05/08/18 19:40 10:32 03:28 WBC RBC Hgb Hct MCV MCH MCHC RDW Plt Count MPV Prelim Diff (Auto) Neut % (Auto) Lymph % (Auto) [place] % (Auto) Eos % (Auto) Baso % (Auto) Neut # (Auto) Lymph # (Auto) [place] # (Auto) Eos # (Auto) Baso # (Auto) WBC Differential Seg Neuts % (Manual) Band Neuts % (Manual) Lymphocytes % (Manual) Monocytes % (Manual) Metamyelocytes % (Man) Myelocytes % (Man) Abs Neuts (Manual) Differential Comment Toxic Granulation Platelet Estimate Platelet Morphology PT INR Sodium 144 Potassium 3.7 Chloride 113 H Carbon Dioxide 18.1 L Anion Gap 13 BUN 26 H Creatinine 2.69 H Estimated GFR 17 L Random Glucose 99 Calcium 7.5 L Phosphorus 4.2 Albumin 1.4 L MTS Gel Crossmatch See Detail Blood Bank Comment 05/08/18 05/08/18 03:28 03:28 WBC 5.6 RBC 3.08 L Hgb 9.0 L Hct 26.5 L MCV 86.1 MCH 29.3 MCHC 34.1 RDW 15.4 Plt Count 378 MPV 6.8 L Prelim Diff (Auto) Slide review pending Neut % (Auto) 67.7 Lymph % (Auto) 21.0 [place] % (Auto) 10.2 H Eos % (Auto) 0.9 Baso % (Auto) 0.2 Neut # (Auto) 3.8 Lymph # (Auto) 1.2 [place] # (Auto) 0.6 Eos # (Auto) 0.0 Baso # (Auto) 0.0 WBC Differential Manual diff final Seg Neuts % (Manual) 62 Band Neuts % (Manual) 21 H Lymphocytes % (Manual) 10 Monocytes % (Manual) 4 Metamyelocytes % (Man) 1 Myelocytes % (Man) 2 H Abs Neuts (Manual) 4.8 Differential Comment . Toxic Granulation 1+ H Platelet Estimate Normal Platelet Morphology Normal PT 15.4 H INR 1.5 Sodium Potassium Chloride Carbon Dioxide Anion Gap BUN Creatinine Estimated GFR Random Glucose Calcium Phosphorus Albumin MTS Gel Crossmatch Blood Bank Comment - Imaging Impressions Venous Doppler Study 05/08/18 00:00 CONCLUSION: 1. No sonographic evidence for lower extremity DVT. <Ceci Burton - Last Filed: 05/08/18 18:13> Assessment and Plan (1) Acute blood loss anemia Status: Acute Code(s): D62 - Acute posthemorrhagic anemia (2) Diverticulitis Status: Acute Code(s): K57.92 - Diverticulitis of intestine, part unspecified , without perforation or abscess without bleeding - Plan 05/06/2018 patient is resting in the bed, and states she is feeling better with no abdominal pain nausea or vomiting. Patient is beginning to get appetite so will advance diet and monitor for any acute abdominal pain nausea or vomiting. Patient has spoke with family members and has agreed for colonoscopy. Patient is planned for cystoscopy and renal stents for Tuesday so will tentatively have planned colonoscopy for Tuesday a.m if she is stable from a GI standpoint with ileus. Plan to check KUB in the a.m. further recommendations to follow Patient has active bowel sounds and does continue with small loose diarrhea stools. Noted per initial CT scan suggestive of diverticulitis versus colitis with ileus. 05/07/2018 patient is resting in the bed states her symptoms are better no nausea no vomiting no abdominal pain. Patient has been tolerating full liquid diet without any difficulty. Plan colonoscopy Tuesday.m.. KUB pending, looking for ileus to resolve, gradual improvement continue with symptoms. Patient has cystoscopy and renal stents plan for tomorrow. Patient notes loose stool 1 but much improvement. INR check 1.7 today. Will follow daily , patient may need FFP before colonoscopy procedure 05/08/2018 patient is resting in the bed, waiting on her surgical procedure, cystoscopy, and renal stents to be placed today. Discussed again with patient plans for possible colonoscopy tomorrow or sometime this week. She is refusing and states since her bleeding has stopped, she would prefer to move forward with her renal issues and consider colonoscopy/and or endoscopy on an outpatient basis. Patient's family member/cousin is in the room and agrees with the plan. Patient feels she is stable now from a GI standpoint and was very hesitant initially to consider colonoscopy or EGD. Current hemoglobin 9 and has been essentially stable within 24 hours of her admission. Initial CT scan discussed diverticulitis versus colitis with ileus. Patient is unaware of the colors of her stools so we reviewed in detail to monitor after her discharge any dark black stools. She has been unaware since admission and is dependent on the nurses to care for her. Patient initially was on Eliquis for her atrial fibrillation but has been on hold since admission. Discussed with her that she will be high risk for future bleeding episodes when taken Eliquis. Plan: Diet, n.p.o. now for renal procedure Monitor labs and number of stools Continue PPI GI is available to follow as needed but will sign off for now, discussed with her follow-up as outpatient in 2-4 weeks. Patient was seen per myself and Dr. Burton, note was written on his behalf <Maddison Lai - Last Filed: 05/08/18 11:48> (1) Acute blood loss anemia Status: Acute Code(s): D62 - Acute posthemorrhagic anemia (2) Diverticulitis Status: Acute Code(s): K57.92 - Diverticulitis of intestine, part unspecified , without perforation or abscess without bleeding - Plan Seen and examined with DEBT [employer]LECTOR, no bleeding. States everything went well with cystoscopy. Does not want any gi fabian at this time. Will consider it later as outpt. GI will sign off, gi fu upon dc. Thank you The exam, history, and the medical decision-making described in the above note were completed with the assistance of the mid-level provider. I reviewed and agree with the findings presented. I attest that I had a [id number] encounter with the patient on the same day, and personally performed and documented my assessment and findings in the medical record. <Ceci Burton - Last Filed: 05/08/18 18:13>
[2018-05-08] MEDS ORDERED: Metoprolol Tartrate 25 MG Tablet PO ONE (12:30)
[2018-05-08] MEDS ORDERED: Chlorhexidine Gluconate 2% 1 Pack (2 Cloths) TOPICAL ONE (12:30)
[2018-05-08] MEDS ORDERED: Sodium Chlor 0.9% Inj 500 ML IV.CONT ONE (12:30)
[2018-05-08] MEDS ORDERED: fentaNYL Citrate Inj 100 MCG/2 ML Ampul ONE (12:53)
[2018-05-08] MEDS ORDERED: Lidocaine PF 1% Inj 5 ML Syringe INFILTRATN ONE (13:18)
[2018-05-08] MEDS ORDERED: Phenylephrine/NS 1000 MCG/10ML Syringe IV.PUSH ONE (13:18)
[2018-05-08] MEDS ORDERED: Succinylcholine Inj 100 MG/5 ML Syringe IV.PUSH ONE (13:18)
[2018-05-08] MEDS ORDERED: Iohexol Inj 350 MG/ML 100 ML Bottle (for RAD Diag) IVCONTRAST ONE ×2 (14:05→14:30)
--- NOTE | 2018-05-08 14:55 | P.OP ---
- Preoperative Diagnosis (1) Ureteral calculus, right - Postoperative Diagnosis (1) Ureteral calculus, right Date of procedure: 05/08/18 Procedure: Cystoscopy, right retrograde pyelogram, right ureteroscopy with holmium laser lithotripsy and right ureteral stent placement Anesthesia: LU Surgeon: Librado Salazar MD Estimated blood loss (mL): 0 Pathology: other (A few stone fragments sent for chemical composition analysis) Operation and Findings: Indication for procedure: Case of a pleasant 72-year-old female with a 10 mm obstructing right proximal ureteral calculus who presents now for cystoscopy and right stent placement. Operative procedures in detail: Patient was brought to the operating room suite and placed supine on the cystoscopy table. She was then placed under general anesthesia. She was then repositioned in the dorsolithotomy position and prepped and draped in normal sterile fashion. After an appropriate timeout was undertaken I proceeded with cystoscopic evaluation utilizing the rigid cystoscope and the 30 degree lens. Both right and left ureteral orifices were noted to be in correct anatomic position. There was clear drainage noted on the left and no output on the right. There were no bladder mucosal lesions, calculi or diverticula formation noted. I then proceeded with passing a sensor 0.035 wire up the patient's right ureter to the point of the obstructing right proximal stone. The stone appeared to be impacted and the guidewire could not be manipulated around the stone. I subsequently placed a 6 Irish open-ended catheter over the guidewire up to the point of the stone once again attempted to manipulate the wire around the stone without success. The wire was left in place and the open-ended catheter was withdrawn. The cystoscope was then exchanged for the self dilating ureteroscope. The ureteroscope was advanced the previously placed wire up to the point of the obstructing stone. I then proceeded with holmium laser lithotripsy utilizing the 200 m fiber of this up obstructing stone. The stone itself was broken down to multiple smaller fragments. I then exchanged the laser fiber for a 2.4 Irish stone basket and several of the larger fragments were grasped and withdrawn and sent out for chemical analysis. The proximal ureter was markedly edematous at the stone impaction site and decision was made to place a stent. The ureteroscope was then withdrawn and the cystoscope was reutilized and the previously placed wire was backloaded. A 6 Irish open-ended catheter was now easily advanced over the wire up to the right renal pelvis and a retrograde pyelogram study was performed to outline the collecting system. The guidewire was reintroduced through the open-ended catheter and the catheter was exchanged for a 6 Irish 24 cm [place] double-J stent. The stent was placed on the both cystoscopic and fluoroscopic guidance without difficulty. Once the stent was in proper position the trailing string was removed. An 18 Irish 10 cc Dhillon catheter was then placed and connected to gravity drainage. The patient tolerated the procedures without complications and was transferred to the PACU in satisfactory condition.
[2018-05-08] MEDS: Acetaminophen 325 MG Tablet PO PRN (21:25)
[2018-05-09 06:32] LABS: Baso % (Auto) 0.3 % (0.0-2.0); Hematocrit 26.2 % (35.0-46.0); Hemoglobin 8.7 gm/dL (11.6-15.3); Lymph # (Auto) 0.8 th/mm3 (1.0-4.8); Lymph % (Auto) 19.1 % (9.0-44.0); Mean Corpuscular HGB Conc 33.4 % (32.0-36.0); Mean Corpuscular Volume 86.9 fL (80.0-100.0); Mean Platelet Volume 6.8 fL (7.0-11.0); Mono # (Auto) 0.5 th/mm3 (0.0-0.9); Mono % (Auto) 11.4 % (0.0-8.0); Neut % (Auto) 68.2 % (16.0-70.0); Platelet Count 391 th/mm3 (150-450); Red Blood Count 3.01 mil/mm3 (4.00-5.30); Red Cell Distribution Width 15.7 % (11.6-17.2); White Blood Count 4.4 th/mm3 (4.0-11.0)
[2018-05-09 07:10] LABS: Albumin 1.3 g/dL (3.4-5.0); Carbon Dioxide 20.9 meq/L (21.0-32.0); Phosphorus 4.8 mg/dL (2.5-4.9)
[2018-05-09 07:16] LABS: Calcium 7.4 mg/dL (8.5-10.1); Potassium 2.9 meq/L (3.5-5.1)
[2018-05-09 08:37] LABS: Lymphocytes 10 % (9-44); Metamyelocytes 1 % (0-1); Monocytes 3 % (0-8); Plasma Cells 1 % (0-0); Platelet Estimate Normal (Normal); Platelet Morphology Clumped (Normal); Tallied Nucleated RBC 1 (0-0); Target Cells 1+; Toxic Granulation 2+
[2018-05-09] MEDS: Nystatin Liq 500,000 UNIT/5 ML UDC BUCCAL SCH ×4 (10:10→21:33)
[2018-05-09] MEDS: Senna/Docusate Sodium 8.6/50 MG Tablet PO SCH ×2 (10:12→22:07)
--- NOTE | 2018-05-09 10:27 | P.PNNP ---
Subjective Interval history: Patient underwent right ureteral stent placed, along with laser lithotripsy. Renal function has improved. Hypernatremia and hypokalemia are noted. Replacement was ordered for hypokalemia. Physical Exam Vital signs: Vital Signs 05/08/18 15:03 05/08/18 15:15 05/08/18 15:30 Temperature 97.4 F L Pulse Rate 114 H 112 H 112 H Respiratory Rate 12 17 12 Blood Pressure 107/60 119/78 130/85 Pulse Oximetry 97 97 97 05/08/18 15:45 05/08/18 16:00 05/08/18 16:17 Temperature 97.1 F L Pulse Rate 110 H 110 H Respiratory Rate 12 16 Blood Pressure 132/84 125/78 Pulse Oximetry 97 98 97 05/08/18 20:00 05/09/18 00:00 05/09/18 04:00 Temperature 98 F 98.4 F 98.2 F Pulse Rate 108 H 112 H 108 H Respiratory Rate 18 17 17 Blood Pressure 130/68 127/68 131/79 Pulse Oximetry 96 95 95 05/09/18 08:00 Temperature 97.7 F Pulse Rate 119 H Respiratory Rate 18 Blood Pressure 132/70 Pulse Oximetry 96 Intake & Output 05/08/18 05/09/18 05/09/18 18:59 06:59 18:59 Intake Total 1000 / 1000 680 / 680 Output Total 131 / 131 1500 / 1500 Balance 869 / 869 -820 / -820 Weight 116.9 kg Intake: IV 200 / 200 200 / 200 NS Inj 250 ML @ 15 mls/hr IV. 0 / 0 SIG ONCE LYNN Rx#:[id number] Flagyl 500 MG Inj 100 ML @ 100 200 / 200 200 / 200 mls/hr IV.SIG Q6H LYNN Rx#: [id number] Oral 480 / 480 Anesthesia Amount 800 / 800 Output: Estimated Blood Loss 1 / 1 Urine Amount (Catheter) 130 / 130 1500 / 1500 Indwelling Urethral Catheter 130 / 130 1500 / 1500 Other: # Incontinent Voids 3 Date of Last Bowel Movement 05/07/18 05/08/18 # Incontinent Bowel Movements 1 Narrative: GENERAL: This is a well-nourished, well-developed patient, in no apparent distress. CARDIOVASCULAR: Normal rate and regular rhythm without murmurs, gallops, or rubs. RESPIRATORY: Good respiratory efforts. Breath sounds equal and clear to auscultation bilaterally. GASTROINTESTINAL: Abdomen soft, non-tender, non-distended. Normal active bowel sounds MUSCULOSKELETAL: 2+ bilateral lower extremity edema NEURO: Alert & Oriented x4 to person, place, time, situation. Moves all ext x4 PSYCH: Appropriate mood and affect. - Urinary Catheter Management Indwelling Urethral Catheter Cath placed during this visit: yes, but has since been removed by the nurse Reason for continuing: Gross Hematuria Removal date: 05/09/18 Removal time: 06:46 Assessment and Plan - Assessment (1) Acute kidney injury Code(s): N17.9 - Acute kidney failure, unspecified Status: Acute Plan: Renal function has improved after relief of right sided obstruction. MAC could be due to obstructive uropathy. Also increased renal vein pressure due to fluid overload could be causing MAC. Reduce Bumex. Encourage oral water intake. Start D5W with potassium. Replace potassium. (2) Renal calculi Code(s): N20.0 - Calculus of kidney Status: Acute Plan: Had bilateral renal calculi, now has right ureteral stone. Urology has been consulted. Scheduled for procedure today. (3) Hydronephrosis Code(s): N13.30 - Unspecified hydronephrosis Status: Acute Plan: Due to ureteral stone. s/p cysto, retrograde, laser lithotripsy, stent placement. (4) Acute blood loss anemia Code(s): D62 - Acute posthemorrhagic anemia Status: Acute - Plan Hemoglobin is stable. GI on the case.
--- NOTE | 2018-05-09 10:36 | P.PNIM ---
Subjective Interval history: Patient reports she is feeling better today. Hypernatremia and significant hypokalemia noted. Physical Exam Vital signs: Vital Signs 05/08/18 15:03 05/08/18 15:15 05/08/18 15:30 Temperature 97.4 F L Pulse Rate 114 H 112 H 112 H Respiratory Rate 12 17 12 Blood Pressure 107/60 119/78 130/85 Pulse Oximetry 97 97 97 05/08/18 15:45 05/08/18 16:00 05/08/18 16:17 Temperature 97.1 F L Pulse Rate 110 H 110 H Respiratory Rate 12 16 Blood Pressure 132/84 125/78 Pulse Oximetry 97 98 97 05/08/18 20:00 05/09/18 00:00 05/09/18 04:00 Temperature 98 F 98.4 F 98.2 F Pulse Rate 108 H 112 H 108 H Respiratory Rate 18 17 17 Blood Pressure 130/68 127/68 131/79 Pulse Oximetry 96 95 95 05/09/18 08:00 Temperature 97.7 F Pulse Rate 119 H Respiratory Rate 18 Blood Pressure 132/70 Pulse Oximetry 96 Intake & Output 05/08/18 05/09/18 05/09/18 18:59 06:59 18:59 Intake Total 1000 / 1000 680 / 680 Output Total 131 / 131 1500 / 1500 Balance 869 / 869 -820 / -820 Weight 116.9 kg Intake: IV 200 / 200 200 / 200 NS Inj 250 ML @ 15 mls/hr IV. 0 / 0 SIG ONCE LYNN Rx#:[id number] Flagyl 500 MG Inj 100 ML @ 100 200 / 200 200 / 200 mls/hr IV.SIG Q6H LYNN Rx#: [id number] Oral 480 / 480 Anesthesia Amount 800 / 800 Output: Estimated Blood Loss 1 / Urine Amount (Catheter) 130 / 130 1500 / 1500 Indwelling Urethral Catheter 130 / 130 1500 / 1500 Other: # Incontinent Voids 3 Date of Last Bowel Movement 05/07/18 05/08/18 # Incontinent Bowel Movements 1 Narrative: GENERAL: Obese female, in no apparent distress. CARDIOVASCULAR: Normal rate and regular rhythm without murmurs, gallops, or rubs. RESPIRATORY: Good respiratory efforts. Breath sounds equal and clear to auscultation bilaterally. GASTROINTESTINAL: Abdomen soft, non-tender, non-distended. Normal active bowel sounds MUSCULOSKELETAL: 2+ bilateral lower extremity edema NEURO: Alert & Oriented x4 to person, place, time, situation. Moves all ext x4 PSYCH: Appropriate mood and affect. - Urinary Catheter Management Indwelling Urethral Catheter Cath placed during this visit: yes, but has since been removed by the nurse Reason for continuing: Gross Hematuria Removal date: 05/09/18 Removal time: 06:46 Results - Labs CBC & Chem 7: 05/09/18 04:36 05/09/18 04:36 Laboratory Results - last 24 hr 05/09/18 05/09/18 04:36 04:36 WBC 4.4 RBC 3.01 L Hgb 8.7 L Hct 26.2 L MCV 86.9 MCH 29.0 MCHC 33.4 RDW 15.7 Plt Count 391 MPV 6.8 L Prelim Diff (Auto) Slide review pending Neut % (Auto) 68.2 Lymph % (Auto) 19.1 [place] % (Auto) 11.4 H Eos % (Auto) 1.0 Baso % (Auto) 0.3 Neut # (Auto) 3.0 Lymph # (Auto) 0.8 L [place] # (Auto) 0.5 Eos # (Auto) 0.0 Baso # (Auto) 0.0 WBC Differential Manual diff final Seg Neuts % (Manual) 54 Band Neuts % (Manual) 31 H Lymphocytes % (Manual) 10 Monocytes % (Manual) 3 Metamyelocytes % (Man) 1 Plasma Cell % (Manual) 1 H Abs Neuts (Manual) 3.8 Nucleated RBCs/100 WBC 1 H Differential Comment . Toxic Granulation 2+ H Platelet Estimate Normal Platelet Morphology Clumped H Target Cells 1+ H Sodium 147 H Potassium 2.9 L* D Chloride 113 H Carbon Dioxide 20.9 L Anion Gap 13 BUN 24 H Creatinine 2.22 H Estimated GFR 22 L Random Glucose 92 Calcium 7.4 L* Phosphorus 4.8 Albumin 1.3 L - Imaging Impressions Venous Doppler Study 05/08/18 00:00 CONCLUSION: 1. No sonographic evidence for lower extremity DVT. Assessment and Plan - Plan 72-year-old female with a diagnosis of atrial fibrillation and was on Eliquis prior to admission, she was seen at our facility a couple of weeks ago where she was in acute kidney injury secondary to bilateral renal calculi causing obstruction and kidney failure. The patient was admitted and started on IV fluids. Her creatinine subsequently improved and the patient did not undergo any procedure by urology during that admission. The patient began having bloody bowel movements and some abdominal pain a few days ago and came into our emergency department for evaluation. Acute kidney injury with obstructing proximal ureteral calculus 1. Obstructing 10 mm right proximal ureteral calculus with hydronephrosis 2. Multiple nonobstructing left renal calculi. Patient is status post cystoscopy, right retrograde pyelogram, lithotripsy, and right ureteral stent placement on 05/08/18 Acute kidney injury is likely secondary to volume loss from the suspected upper GI bleed, and possibly obstructive right-sided nephropathy. Nephrology was consulted and is also following the patient. Appreciate urology input. No further intervention while in the hospital. Outpatient follow-up advised. Appreciate nephrology recommendations. Decrease Bumex. Change to oral in anticipation for discharge. Hypernatremia and hypokalemia: - IV fluid changed to D5w with KCl. - Check mag Acute GI bleed Ileus Diverticulitis The patient is being followed by GI. Hemoglobin is stable. GI had offered an upper endoscopy however the patient refused the procedure. Aspirin and Eliquis have been held. Patient is currently refusing colonoscopy. This will be scheduled outpatient with GI follow-up. Acute GI bleeding seems to have resolved. We will repeat a Hemoccult. Given renal issues above. If no further bleeding, will restart Eliquis at half the dose 2.5 mg twice daily. Acute symptomatic blood loss anemia secondary to GI bleed H&H stable. continue to monitor her hemoglobin. Continue Protonix. Atrial fibrillation The patient's metoprolol was held due to low blood pressure from her current condition. Blood pressure normalized. Resume Toprol all. Eliquis has been held as noted above. We will continue to monitor the patient on telemetry. No pharmacotherapy for DVT throat prophylaxis as the patient had GI bleed. Discharge Planning: Will need SNF. Possible discharge in the next 24-48 hours.
--- NOTE | 2018-05-09 11:11 | P.PNURO ---
Subjective Patient symptoms today: Postoperative day #1 No specific complaints. Anxious to go home. Objective Vital Signs: Vital Signs 05/08/18 15:03 05/08/18 15:15 05/08/18 15:30 Temperature 97.4 F L Pulse Rate 114 H 112 H 112 H Respiratory Rate 12 17 12 Blood Pressure 107/60 119/78 130/85 Pulse Oximetry 97 97 97 05/08/18 15:45 05/08/18 16:00 05/08/18 16:17 Temperature 97.1 F L Pulse Rate 110 H 110 H Respiratory Rate 12 16 Blood Pressure 132/84 125/78 Pulse Oximetry 97 98 97 05/08/18 20:00 05/09/18 00:00 05/09/18 04:00 Temperature 98 F 98.4 F 98.2 F Pulse Rate 108 H 112 H 108 H Respiratory Rate 18 17 17 Blood Pressure 130/68 127/68 131/79 Pulse Oximetry 96 95 95 05/09/18 08:00 Temperature 97.7 F Pulse Rate 119 H Respiratory Rate 18 Blood Pressure 132/70 Pulse Oximetry 96 Intake & Output 05/08/18 05/09/18 05/09/18 18:59 06:59 18:59 Intake Total 1000 / 1000 680 / 680 Output Total 131 / 131 1500 / 1500 Balance 869 / 869 -820 / -820 Weight 116.9 kg Intake: IV 200 / 200 200 / 200 NS Inj 250 ML @ 15 mls/hr IV. 0 / 0 SIG ONCE LYNN Rx#:[id number] Flagyl 500 MG Inj 100 ML @ 100 200 / 200 200 / 200 mls/hr IV.SIG Q6H LYNN Rx#: [id number] Oral 480 / 480 Anesthesia Amount 800 / 800 Output: Estimated Blood Loss 1 / 1 Urine Amount (Catheter) 130 / 130 1500 / 1500 Indwelling Urethral Catheter 130 / 130 1500 / 1500 Other: # Incontinent Voids 3 Date of Last Bowel Movement 05/07/18 05/08/18 # Incontinent Bowel Movements 1 Result Diagrams: 05/09/18 04:36 05/09/18 04:36 Other Results: Abdomen soft, nondistended, nontender No CVA tenderness Imaging: Impressions Venous Doppler Study 05/08/18 00:00 CONCLUSION: 1. No sonographic evidence for lower extremity DVT. Medications and IVs: Active Medications Generic Name Dose Route Start Last Admin Trade Name Freq PRN Reason Stop Dose Admin Acetaminophen 650 mg 05/02/18 03:33 05/08/18 21:25 Tylenol PO 650 mg Q6H PRN Administration PAIN 1-10 AND/OR FEVER >101F Al Hydroxide/Mg Hydroxide 30 ml 05/02/18 03:33 Milk Of Magnesia Liq PO Q12H PRN Mild Constipation Albuterol 1 ampul 05/02/18 03:33 Duoneb Neb (Prn) NEB Q2HR NEB PRN WHEEZING Bisacodyl 10 mg 05/02/18 03:33 Dulcolax Supp RECTAL DAILY PRN SEVERE CONSITIPATION Bumetanide 2 mg 05/06/18 18:00 05/09/18 10:11 Bumex Inj IV.PUSH 2 mg BID@0900,1800 LYNN Administration Metronidazole/Sodium Chloride 100 mls @ 100 mls/hr 05/02/18 09:00 05/09/18 03 :00 Flagyl 500 Mg Inj IV.SIG Infused Q6H LYNN Infusion Levofloxacin/Dextrose 150 mls @ 100 mls/hr 05/04/18 04:00 05/08/18 05:20 Levaquin 750 Mg Premix Inj IV.SIG Infused Q48H LYNN Infusion Lactated Ringer's 1,000 mls @ 30 mls/hr 05/08/18 12:30 05/08/18 21:22 Lr 1000 Ml Inj IV.CONT 05/09/18 12:29 Not Given .Q24H ONE Potassium Chloride/Dextrose 1,000 mls @ 42 mls/hr 05/09/18 12:00 D5w + Kcl 20 Meq Inj IV.CONT .[id number] [facility] Miscellaneous Information 0 each 05/08/18 15:02 Mis Nursing Information OTHER 05/09/18 15:01 UNSCH PRN SEE LABEL COMMENTS Morphine Sulfate 2 mg 05/02/18 03:33 Morphine Inj IV.PUSH Q2H PRN PAIN SCALE 6 TO 10 Nystatin 5 ml 05/02/18 09:00 05/09/18 10:10 Mycostatin Liq BUCCAL 5 ml QID LYNN Administration Ondansetron HCl 4 mg 05/02/18 03:33 05/08/18 04:03 Zofran Inj IV.PUSH 4 mg Q6H PRN Administration NAUSEA OR VOMITING Pantoprazole Sodium 40 mg 05/07/18 09:00 05/09/18 10:12 Protonix PO 40 mg DAILY LYNN Administration Potassium Chloride 40 meq 05/09/18 09:00 05/09/18 10:11 K-Dur PO 05/10/18 09:00 40 meq BID LYNN Administration Pravastatin Sodium 40 mg 05/02/18 21:00 05/08/18 21:25 Pravachol PO 40 mg HS LYNN Administration Senna/Docusate Sodium 1 tab 05/02/18 09:00 05/09/18 10:12 Maggie-Colace PO Not Given BID LYNN Sennosides 17.2 mg 05/02/18 03:33 Senokot PO Q12H PRN Moderate Constipation Sodium Chloride 2 ml 05/02/18 09:00 05/08/18 21:26 Ns Flush IV.FLUSH Not Given BID LYNN Sodium Chloride 2 ml 05/02/18 03:33 05/04/18 08:11 Ns Flush IV.FLUSH 2 ml PRN PRN Administration FLUSH AFTER USING IV ACCESS Vitamin D 2,000 unit 05/02/18 09:00 05/09/18 10:12 Vitamin D3 PO 2,000 unit DAILY LYNN Administration Assessment and Plan - Assessment (1) Ureteral calculus, right Code(s): N20.1 - Calculus of ureter Status: Acute (2) Renal calculus, left Code(s): N20.0 - Calculus of kidney Status: Acute - Plan Urologic impression: 1. Status post right ureteroscopy with laser lithotripsy of 10 mm proximal calculus with stent placement 2. Multiple nonobstructing left renal calculi. Plan: 1. No further intervention indicated during present hospitalization 2. Patient to follow-up with me in the office approximately 2-3 weeks after hospital discharge to make arrangements for right stent removal and outpatient shockwave lithotripsy of the multiple left renal calculi.
[2018-05-09] MEDS ORDERED: KCL 20 mEq/Dextrose 5% Inj 1,000 ML IV.CONT SCH (12:00)
[2018-05-09] MEDS: levoFLOXacin 750 MG Tablet PO SCH (17:21)
[2018-05-09] MEDS: metroNIDAZOLE 500 MG Tablet PO SCH (21:33)
[2018-05-09] MEDS: Metoprolol Tartrate 100 MG Tablet PO SCH ×2 (21:34→22:08)
[2018-05-09] MEDS ORDERED: Potassium Chloride 25 MEQ Effervescent Tablet PO ONE ×2 (22:02→22:03)
[2018-05-10 05:36] LABS: Albumin 1.2 g/dL (3.4-5.0); Carbon Dioxide 20.8 meq/L (21.0-32.0); Magnesium 1.1 mg/dL (1.5-2.5); Phosphorus 3.6 mg/dL (2.5-4.9)
[2018-05-10] MEDS: metroNIDAZOLE 500 MG Tablet PO SCH ×3 (05:38→21:00)
[2018-05-10 05:55] LABS: Potassium 2.9 meq/L (3.5-5.1)
[2018-05-10] MEDS: Potassium Chlor 10 mEq Premix 10 MEQ/100 ML PIGGYBACK IV.SIG SCH ×8 (06:56→20:49)
[2018-05-10] MEDS: Nystatin Liq 500,000 UNIT/5 ML UDC BUCCAL SCH ×4 (08:18→20:52)
[2018-05-10] MEDS: Senna/Docusate Sodium 8.6/50 MG Tablet PO SCH ×2 (08:20→20:51)
[2018-05-10] MEDS: Metoprolol Tartrate 100 MG Tablet PO SCH ×2 (08:20→20:58)
[2018-05-10] MEDS ORDERED: Potassium Chloride 25 MEQ Effervescent Tablet PO ONE (09:15)
--- NOTE | 2018-05-10 11:21 | P.PNNP ---
Subjective Interval history: patient's renal function has improved. Hypokalemia, and hypomagnesemia are noted. Physical Exam Vital signs: Vital Signs 05/09/18 12:00 05/09/18 16:00 05/09/18 16:15 Temperature 98.0 F 97.9 F Pulse Rate 105 H 111 H 113 H Respiratory Rate 18 18 Blood Pressure 142/81 H 123/71 Pulse Oximetry 95 97 05/09/18 19:44 05/09/18 20:00 05/09/18 20:15 Temperature 97.8 F Pulse Rate 136 H 122 H Respiratory Rate 18 Blood Pressure 104/53 L Pulse Oximetry 97 97 05/09/18 21:58 05/10/18 00:00 05/10/18 03:56 Temperature 98.3 F Pulse Rate 88 92 H Respiratory Rate 21 Blood Pressure 113/56 L 113/74 Pulse Oximetry 95 05/10/18 04:00 05/10/18 08:00 05/10/18 08:23 Temperature 98.0 F 97.6 F Pulse Rate 94 H 95 H Respiratory Rate 21 18 Blood Pressure 117/72 105/57 L Pulse Oximetry 95 94 L 96 Intake & Output 05/09/18 05/10/18 05/10/18 18:59 06:59 18:59 Intake Total 100 / 100 240 / 240 300 / 300 Balance 100 / 100 240 / 240 300 / 300 Weight 112.2 kg Intake: IV 100 / 100 300 / 300 KCl 10 mEq Premix Inj 10 meq In 300 / 300 100 ml @ 100 mls/hr IV.SIG Q1H LYNN Rx#:[id number] Flagyl 500 MG Inj 100 ML @ 100 100 / 100 mls/hr IV.SIG Q6H LYNN Rx#: [id number] Oral 240 / 240 Other: # Voids 1 # Incontinent Voids 2 Date of Last Bowel Movement 05/09/18 05/09/18 Narrative: GENERAL: Obese female, in no apparent distress. CARDIOVASCULAR: Normal rate and regular rhythm without murmurs, gallops, or rubs. RESPIRATORY: Good respiratory efforts. Breath sounds equal and clear to auscultation bilaterally. GASTROINTESTINAL: Abdomen soft, non-tender, non-distended. Normal active bowel sounds MUSCULOSKELETAL: 2+ bilateral lower extremity edema NEURO: Alert & Oriented x4 to person, place, time, situation. Moves all ext x4 PSYCH: Appropriate mood and affect. - Urinary Catheter Management Indwelling Urethral Catheter Cath placed during this visit: yes, but has since been removed by the nurse Reason for continuing: Gross Hematuria Removal date: 05/09/18 Removal time: 06:46 Assessment and Plan - Assessment (1) Acute kidney injury Code(s): N17.9 - Acute kidney failure, unspecified Status: Acute Plan: Renal function has improved after relief of right sided obstruction. MAC due to obstructive uropathy. Also increased renal vein pressure due to fluid overload could be causing MAC. Hypernatremia has improved. Severe hypokalemia and hypomagnesemia noted: replacement ordered. Hypokalemia in the presence of acidosis suggests severe body depletion of potassium. I will give her a dose of Diuril as she continues to demonstrate lower extremity edema. Lower extremity Doppler is negative for DVT. (2) Renal calculi Code(s): N20.0 - Calculus of kidney Status: Acute Plan: Had bilateral renal calculi, now has right ureteral stone. s/p cystoscopy, right ureteral stent. (3) Hydronephrosis Code(s): N13.30 - Unspecified hydronephrosis Status: Acute Plan: Due to ureteral stone. s/p cysto, retrograde, laser lithotripsy, stent placement. (4) Acute blood loss anemia Code(s): D62 - Acute posthemorrhagic anemia Status: Acute - Plan Hemoglobin is stable. GI on the case.
[2018-05-10] MEDS: Mag Sulf 1 gm/100 ml Premix 100 ML IV.SIG SCH ×2 (11:47→14:58)
[2018-05-10] MEDS ORDERED: Chlorothiazide Inj 500 MG Vial IV.PUSH ONE (12:30)
[2018-05-10] MEDS: Acetaminophen 325 MG Tablet PO PRN (13:58)
[2018-05-10 15:25] LABS: Calcium 7.1 mg/dL (8.5-10.1); Carbon Dioxide 21.4 meq/L (21.0-32.0); Potassium 3.1 meq/L (3.5-5.1)
--- NOTE | 2018-05-10 15:41 | P.PNIM ---
Subjective Interval history: Persistent hypokalemia and severe hypomagnesemia. Patient reports overall she is feeling better and is anxious to leave the hospital. Physical Exam Vital signs: Vital Signs 05/09/18 16:00 05/09/18 16:15 05/09/18 19:44 Temperature 97.9 F Pulse Rate 111 H 113 H Respiratory Rate 18 Blood Pressure 123/71 Pulse Oximetry 97 97 05/09/18 20:00 05/09/18 20:15 05/09/18 21:58 Temperature 97.8 F Pulse Rate 136 H 122 H Respiratory Rate 18 Blood Pressure 104/53 L 113/56 L Pulse Oximetry 97 05/10/18 00:00 05/10/18 03:56 05/10/18 04:00 Temperature 98.3 F 98.0 F Pulse Rate 88 92 H 94 H Respiratory Rate 21 21 Blood Pressure 113/74 117/72 Pulse Oximetry 95 95 05/10/18 08:00 05/10/18 08:23 05/10/18 09:00 Temperature 97.6 F Pulse Rate 107 H 110 H Respiratory Rate 18 Blood Pressure 105/57 L Pulse Oximetry 94 L 96 05/10/18 12:00 Temperature 98.4 F Pulse Rate 104 H Respiratory Rate 18 Blood Pressure 131/62 Pulse Oximetry 95 Intake & Output 05/09/18 05/10/18 05/10/18 18:59 06:59 18:59 Intake Total 100 / 100 240 / 240 500 / 500 Balance 100 / 100 240 / 240 500 / 500 Weight 112.2 kg Intake: IV 100 / 100 500 / 500 Magnesium Sulfate 1 gm/D5W 100 100 / 100 ml Premix 100 ML @ 100 mls/hr IV.SIG Q1H [facility] Rx#:[id number] KCl 10 mEq Premix Inj 10 meq In 400 / 400 100 ml @ 100 mls/hr IV.SIG Q1H [facility] Rx#:[id number] Flagyl 500 MG Inj 100 ML @ 100 100 / 100 mls/hr IV.SIG Q6H [facility] Rx#: [id number] Oral 240 / 240 Other: # Voids 1 # Incontinent Voids 2 Date of Last Bowel Movement 05/09/18 05/09/18 05/10/18 Narrative: GENERAL: Obese female, in no apparent distress. CARDIOVASCULAR: Normal rate and regular rhythm without murmurs, gallops, or rubs. RESPIRATORY: Good respiratory efforts. Breath sounds equal and clear to auscultation bilaterally. GASTROINTESTINAL: Abdomen soft, non-tender, non-distended. Normal active bowel sounds MUSCULOSKELETAL: 2+ bilateral lower extremity edema NEURO: Alert & Oriented x4 to person, place, time, situation. Moves all ext x4 PSYCH: Appropriate mood and affect. - Urinary Catheter Management Indwelling Urethral Catheter Cath placed during this visit: yes, but has since been removed by the nurse Reason for continuing: Gross Hematuria Removal date: 05/09/18 Removal time: 06:46 Results - Labs CBC & Chem 7: 05/09/18 04:36 05/10/18 14:14 Laboratory Results - last 24 hr 05/10/18 05/10/18 03:55 14:14 Sodium 143 143 Potassium 2.9 L* 3.1 L Chloride 112 H 112 H Carbon Dioxide 20.8 L 21.4 Anion Gap 10 10 BUN 24 H 22 H Creatinine 1.81 H 1.63 H Estimated GFR 28 L 31 L Random Glucose 106 135 H Calcium 7.1 L* 7.1 L* Phosphorus 3.6 D Magnesium 1.1 L Albumin 1.2 L Assessment and Plan - Plan 72-year-old female with a diagnosis of atrial fibrillation and was on Eliquis prior to admission, she was seen at our facility a couple of weeks ago where she was in acute kidney injury secondary to bilateral renal calculi causing obstruction and kidney failure. The patient was admitted and started on IV fluids. Her creatinine subsequently improved and the patient did not undergo any procedure by urology during that admission. The patient began having bloody bowel movements and some abdominal pain a few days ago and came into our emergency department for evaluation. Acute kidney injury with obstructing proximal ureteral calculus 1. Obstructing 10 mm right proximal ureteral calculus with hydronephrosis 2. Multiple nonobstructing left renal calculi. Patient is status post cystoscopy, right retrograde pyelogram, lithotripsy, and right ureteral stent placement on 05/08/18 Acute kidney injury is likely secondary to volume loss from the suspected upper GI bleed, and possibly obstructive right-sided nephropathy. Nephrology was consulted and is also following the patient. Appreciate urology input. No further intervention while in the hospital. Outpatient follow-up advised. Appreciate nephrology recommendations. Continue oral Bumex. A dose of Diuril has been given today per nephrology. Hypokalemia and hypomagnesemia: - Replace aggressively. Follow-up labs. Acute GI bleed Ileus Diverticulitis The patient is being followed by GI. Hemoglobin is stable. GI had offered an upper endoscopy however the patient refused the procedure. Aspirin and Eliquis have been held. Patient is currently refusing colonoscopy. This will be scheduled outpatient with GI follow-up. Acute GI bleeding seems to have resolved. Given renal issues above. Restart Eliquis at half the dose 2.5 mg twice daily. Acute symptomatic blood loss anemia secondary to GI bleed H&H stable. continue to monitor her hemoglobin. Continue Protonix. Atrial fibrillation The patient's metoprolol was held due to low blood pressure from her current condition. Blood pressure normalized. Resume Toprol all. Eliquis has been held as noted above. Resume at half the dose as noted above. Discharge Planning: Will need SNF. Possible discharge in the next 24-48 hours pending improvement in electrolytes.
[2018-05-10] MEDS ORDERED: Potassium Chlor 20 mEq Premix 20 MEQ/100 ML PIGGYBACK IV.SIG SCH (15:45)
[2018-05-10 15:52] LABS: Total Protein 5.4 g/dL (6.4-8.2)
[2018-05-11] MEDS: metroNIDAZOLE 500 MG Tablet PO SCH ×3 (06:29→22:26)
[2018-05-11 07:49] LABS: Hematocrit 25.5 % (35.0-46.0); Hemoglobin 8.6 gm/dL (11.6-15.3); Mean Corpuscular HGB Conc 33.5 % (32.0-36.0); Mean Corpuscular Hemoglobin 28.9 pg (27.0-34.0); Platelet Count 375 th/mm3 (150-450); Red Blood Count 2.97 mil/mm3 (4.00-5.30); Red Cell Distribution Width 15.3 % (11.6-17.2); White Blood Count 5.4 th/mm3 (4.0-11.0)
[2018-05-11 08:27] LABS: Calcium 7.1 mg/dL (8.5-10.1); Potassium 3.2 meq/L (3.5-5.1)
[2018-05-11] MEDS: Metoprolol Tartrate 100 MG Tablet PO SCH ×2 (08:51→21:03)
[2018-05-11] MEDS: Senna/Docusate Sodium 8.6/50 MG Tablet PO SCH ×2 (08:51→21:03)
[2018-05-11] MEDS: Nystatin Liq 500,000 UNIT/5 ML UDC BUCCAL SCH ×4 (08:51→22:25)
[2018-05-11 09:21] LABS: Total Protein 5.1 g/dL (6.4-8.2)
[2018-05-11] MEDS ORDERED: Potassium Chloride 25 MEQ Effervescent Tablet PO ONE (10:00)
[2018-05-11] MEDS: Potassium Chlor 10 mEq Premix 10 MEQ/100 ML PIGGYBACK IV.SIG SCH ×3 (10:30→13:00)
[2018-05-11 12:55] LABS: Albumin 1.1 g/dL (3.4-5.0); Carbon Dioxide 24.3 meq/L (21.0-32.0); Phosphorus 2.6 mg/dL (2.5-4.9); Potassium 3.1 meq/L (3.5-5.1)
--- NOTE | 2018-05-11 13:15 | P.PNIM ---
Physical Exam Vital signs: Vital Signs 05/10/18 16:00 05/10/18 16:30 05/10/18 19:50 Temperature 97.0 F L 98 F Pulse Rate 104 H 102 H 106 H Respiratory Rate 18 16 Blood Pressure 98/71 L 98/68 L Pulse Oximetry 98 98 05/10/18 19:58 05/10/18 20:19 05/10/18 23:49 Temperature Pulse Rate 109 H 111 H Respiratory Rate Blood Pressure Pulse Oximetry 97 05/11/18 00:00 05/11/18 03:56 05/11/18 04:00 Temperature 97.2 F L 98.3 F Pulse Rate 112 H 102 H 100 H Respiratory Rate 20 20 Blood Pressure 87/54 L 114/67 Pulse Oximetry 96 97 05/11/18 08:00 05/11/18 10:52 Temperature 97.9 F Pulse Rate 102 H Respiratory Rate 20 Blood Pressure 102/58 L Pulse Oximetry 92 L 97 Intake & Output 05/10/18 05/11/18 05/11/18 18:59 06:59 18:59 Intake Total 950 / 950 650 / 650 200 / 200 Output Total 6 / 6 Balance 944 / 944 650 / 650 200 / 200 Weight 110.3 kg Intake: IV 950 / 950 300 / 300 200 / 200 D5W + KCL 20 mEq Inj 1,000 ML @ 250 / 250 0 / 0 42 mls/hr IV.CONT .[id number] [facility] Rx#:[id number] Magnesium Sulfate 1 gm/D5W 100 200 / 200 ml Premix 100 ML @ 100 mls/hr IV.SIG Q1H [facility] Rx#:[id number] KCl 10 mEq Premix Inj 10 meq In 500 / 500 300 / 300 200 / 200 100 ml @ 100 mls/hr IV.SIG Q1H [facility] Rx#:[id number] Oral 350 / 350 Output: Urine 6 / Other: # Urine Diapers 2 Date of Last Bowel Movement 05/10/18 05/11/18 # Bowel Movements 2 # Incontinent Bowel Movements 4 - Urinary Catheter Management Indwelling Urethral Catheter Cath placed during this visit: yes, but has since been removed by the nurse Reason for continuing: Gross Hematuria Removal date: 05/09/18 Removal time: 06:46 Results - Labs CBC & Chem 7: 05/11/18 07:15 05/11/18 11:00 Laboratory Results - last 24 hr 05/10/18 05/11/18 05/11/18 14:14 07:15 07:15 WBC 5.4 RBC 2.97 L Hgb 8.6 L Hct 25.5 L MCV 86.0 MCH 28.9 MCHC 33.5 RDW 15.3 Plt Count 375 MPV 7.0 Sodium 143 141 Potassium 3.1 L 3.2 L Chloride 112 H 111 H Carbon Dioxide 21.4 22.0 Anion Gap 10 8 BUN 22 H 20 H Creatinine 1.63 H 1.32 H Estimated GFR 31 L 40 L Random Glucose 135 H 95 Calcium 7.1 L* 7.1 L* Prot Corrected Calcium 8.0 L 8.2 L Phosphorus Magnesium Total Protein 5.4 L D 5.1 L Albumin 05/11/18 05/11/18 09:57 11:00 WBC RBC Hgb Hct MCV MCH MCHC RDW Plt Count MPV Sodium 144 Potassium 3.1 L Chloride 112 H Carbon Dioxide 24.3 Anion Gap 8 BUN 19 H Creatinine 1.33 H Estimated GFR 39 L Random Glucose 112 H Calcium 6.9 L* Prot Corrected Calcium Phosphorus 2.6 D Magnesium 1.4 L Total Protein Albumin 1.1 L Assessment and Plan - Plan 72-year-old female with a diagnosis of atrial fibrillation and was on Eliquis prior to admission, she was seen at our facility a couple of weeks ago where she was in acute kidney injury secondary to bilateral renal calculi causing obstruction and kidney failure. The patient was admitted and started on IV fluids. Her creatinine subsequently improved and the patient did not undergo any procedure by urology during that admission. The patient began having bloody bowel movements and some abdominal pain a few days ago and came into our emergency department for evaluation. Acute kidney injury with obstructing proximal ureteral calculus 1. Obstructing 10 mm right proximal ureteral calculus with hydronephrosis 2. Multiple nonobstructing left renal calculi. Patient is status post cystoscopy, right retrograde pyelogram, lithotripsy, and right ureteral stent placement on 05/08/18 Acute kidney injury is likely secondary to volume loss from the suspected upper GI bleed, and possibly obstructive right-sided nephropathy. Nephrology was consulted and is also following the patient. Appreciate urology input. No further intervention while in the hospital. Outpatient follow-up advised. Appreciate nephrology recommendations. Continue oral Bumex. A dose of Diuril has been given today per nephrology. Hypokalemia and hypomagnesemia: - Replace aggressively. Follow-up labs. Acute GI bleed Ileus Diverticulitis The patient is being followed by GI. Hemoglobin is stable. GI had offered an upper endoscopy however the patient refused the procedure. Aspirin and Eliquis have been held. Patient is currently refusing colonoscopy. This will be scheduled outpatient with GI follow-up. Acute GI bleeding seems to have resolved. Given renal issues above. Restart Eliquis at half the dose 2.5 mg twice daily. Acute symptomatic blood loss anemia secondary to GI bleed H&H stable. continue to monitor her hemoglobin. Continue Protonix. Atrial fibrillation The patient's metoprolol was held due to low blood pressure from her current condition. Blood pressure normalized. Resume Toprol all. Eliquis has been held as noted above. Resume at half the dose as noted above. Discharge Planning: Will need SNF. Possible discharge in the next 24-48 hours pending improvement in electrolytes.
[2018-05-11 14:40] LABS: Calcium 6.9 mg/dL (8.5-10.1)
--- NOTE | 2018-05-11 15:00 | P.PNNP ---
Subjective Interval history: Doing well. Lower extremity edema has improved. Renal function is stable. Physical Exam Vital signs: Vital Signs 05/10/18 16:00 05/10/18 16:30 05/10/18 19:50 Temperature 97.0 F L 98 F Pulse Rate 104 H 102 H 106 H Respiratory Rate 18 16 Blood Pressure 98/71 L 98/68 L Pulse Oximetry 98 98 05/10/18 19:58 05/10/18 20:19 05/10/18 23:49 Temperature Pulse Rate 109 H 111 H Respiratory Rate Blood Pressure Pulse Oximetry 97 05/11/18 00:00 05/11/18 03:56 05/11/18 04:00 Temperature 97.2 F L 98.3 F Pulse Rate 112 H 102 H 100 H Respiratory Rate 20 20 Blood Pressure 87/54 L 114/67 Pulse Oximetry 96 97 05/11/18 08:00 05/11/18 10:52 05/11/18 12:00 Temperature 97.9 F 98.2 F Pulse Rate 102 H 82 Respiratory Rate 20 20 Blood Pressure 102/58 L 109/58 L Pulse Oximetry 92 L 97 96 Intake & Output 05/10/18 05/11/18 05/11/18 18:59 06:59 18:59 Intake Total 950 / 950 650 / 650 300 / 300 Output Total 6 / 6 Balance 944 / 944 650 / 650 300 / 300 Weight 110.3 kg Intake: IV 950 / 950 300 / 300 300 / 300 D5W + KCL 20 mEq Inj 1,000 ML @ 250 / 250 0 / 0 42 mls/hr IV.CONT .[id number] [facility] Rx#:[id number] Magnesium Sulfate 1 gm/D5W 100 200 / 200 ml Premix 100 ML @ 100 mls/hr IV.SIG Q1H [facility] Rx#:[id number] KCl 10 mEq Premix Inj 10 meq In 500 / 500 300 / 300 300 / 300 100 ml @ 100 mls/hr IV.SIG Q1H [facility] Rx#:[id number] Oral 350 / 350 Output: Urine / Other: # Urine Diapers 2 Date of Last Bowel Movement 05/10/18 05/11/18 # Bowel Movements 2 # Incontinent Bowel Movements 4 Narrative: GENERAL: Obese female, in no apparent distress. CARDIOVASCULAR: Normal rate and regular rhythm without murmurs, gallops, or rubs. RESPIRATORY: Good respiratory efforts. Breath sounds equal and clear to auscultation bilaterally. GASTROINTESTINAL: Abdomen soft, non-tender, non-distended. Normal active bowel sounds MUSCULOSKELETAL: 1+ bilateral lower extremity edema, improved. - Urinary Catheter Management Indwelling Urethral Catheter Cath placed during this visit: yes, but has since been removed by the nurse Reason for continuing: Gross Hematuria Removal date: 05/09/18 Removal time: 06:46 Assessment and Plan - Assessment (1) Acute kidney injury Code(s): N17.9 - Acute kidney failure, unspecified Status: Acute Plan: Renal function has improved after relief of right sided obstruction. MAC due to obstructive uropathy. Also increased renal vein pressure due to fluid overload could be causing MAC. Hypernatremia has improved. Potassium replacement has been ordered. (2) Renal calculi Code(s): N20.0 - Calculus of kidney Status: Acute Plan: Had bilateral renal calculi, now has right ureteral stone. s/p cystoscopy, right ureteral stent. (3) Hydronephrosis Code(s): N13.30 - Unspecified hydronephrosis Status: Acute Plan: Due to ureteral stone. s/p cysto, retrograde, laser lithotripsy, stent placement. (4) Acute blood loss anemia Code(s): D62 - Acute posthemorrhagic anemia Status: Acute - Plan Hemoglobin is stable. GI on the case. - Attending Attestation patient is cleared for discharge from renal standpoint.
--- NOTE | 2018-05-11 15:15 | P.DS ---
Date of admission: 05/02/18 00:39 Primary care physician: UNKNOWN Brief History from admission: HPI from the admitting physician: 72-year-old female, past medical history significant for atrial fibrillation on Eliquis, presents with complaint of bright red blood per rectum. She states that she has had profuse, watery diarrhea for the last several weeks and has now started to have hematochezia. She is also having intermittent lightheadedness with intermittent generalized weakness. She denies chest pain, shortness of breath. No abdominal pain, back pain. No fever nor chills. No history of liver disease nor alcoholism. Patient update on day of discharge: Patient reports she is feeling great. She is eager to be discharged from the hospital. DS: Diagnosis - Discharge Diagnosis (1) Acute UTI Status: Acute (2) Renal calculi Status: Acute (3) Hydronephrosis Status: Acute (4) Acute kidney injury Status: Acute (5) Acute blood loss anemia Status: Acute DS: Medications - Discharge Medications Prescriptions: apixaban [Eliquis] 2.5 mg PO BID #60 tab bumetanide 1 mg PO DAILY #5 tab potassium chloride 20 meq PO DAILY 30 Days #30 tab DS: Summary Hospital Course: 72-year-old female with a diagnosis of atrial fibrillation and was on Eliquis prior to admission, she was seen at our facility a couple of weeks ago where she was in acute kidney injury secondary to bilateral renal calculi causing obstruction and kidney failure. The patient was admitted and started on IV fluids. Her creatinine subsequently improved and the patient did not undergo any procedure by urology during that admission. The patient began having bloody bowel movements and some abdominal pain a few days ago and came into our emergency department for evaluation. Evaluation and treatment course detailed below: Acute kidney injury with obstructing proximal ureteral calculus 1. Obstructing 10 mm right proximal ureteral calculus with hydronephrosis 2. Multiple nonobstructing left renal calculi. Patient is status post cystoscopy, right retrograde pyelogram, lithotripsy, and right ureteral stent placement on 05/08/18 Acute kidney injury is likely secondary to volume loss from the suspected upper GI bleed, and possibly obstructive right-sided nephropathy. Nephrology was consulted also followed the patient. No further urological intervention in the hospital per urology. Patient is advised to follow-up outpatient Patient was followed by nephrology and was diuresed per nephrology recommendations. She is discharged on 5 more days of Bumex for further diuresis for lower extremity edema. Hypokalemia and hypomagnesemia: -Her electrolytes were aggressively replaced. She will have BMP in a couple of days to ensure stability. Acute GI bleed Ileus Diverticulitis The patient was followed by GI. Hemoglobin is stable. GI had offered an upper endoscopy however the patient refused the procedure. Aspirin and Eliquis initially held. GI advised outpatient follow-up for endoscopy. Bleeding seems to spontaneously resolved. Given renal issues, the patient was started on half dose of Eliquis. No further bleeding observed. Acute symptomatic blood loss anemia secondary to GI bleed H&H stable. Continue Protonix. Atrial fibrillation The patient's metoprolol was held due to low blood pressure from her current condition. Blood pressure normalized. Resume Toprol. Eliquis has been held as noted above. Resume at half the dose as noted above. - Time Spent with Patient Total time spent providing and/or coordinating discharge services: Greater than 30 minutes - Quality: VTE Deep Vein Thrombosis/Pulmonary Embolism Present on Admission: No Exam Vital signs: Vital Signs 05/10/18 16:00 05/10/18 16:30 05/10/18 19:50 Temperature 97.0 F L 98 F Pulse Rate 104 H 102 H 106 H Respiratory Rate 18 16 Blood Pressure 98/71 L 98/68 L Pulse Oximetry 98 98 05/10/18 19:58 05/10/18 20:19 05/10/18 23:49 Temperature Pulse Rate 109 H 111 H Respiratory Rate Blood Pressure Pulse Oximetry 97 05/11/18 00:00 05/11/18 03:56 05/11/18 04:00 Temperature 97.2 F L 98.3 F Pulse Rate 112 H 102 H 100 H Respiratory Rate 20 20 Blood Pressure 87/54 L 114/67 Pulse Oximetry 96 97 05/11/18 08:00 05/11/18 10:52 05/11/18 12:00 Temperature 97.9 F 98.2 F Pulse Rate 102 H 82 Respiratory Rate 20 20 Blood Pressure 102/58 L 109/58 L Pulse Oximetry 92 L 97 96 Intake & Output 05/10/18 05/11/18 05/11/18 18:59 06:59 18:59 Intake Total 950 / 950 650 / 650 300 / 300 Output Total 6 / 6 Balance 944 / 944 650 / 650 300 / 300 Weight 110.3 kg Intake: IV 950 / 950 300 / 300 300 / 300 D5W + KCL 20 mEq Inj 1,000 ML @ 250 / 250 0 / 0 42 mls/hr IV.CONT .[id number] [facility] Rx#:[id number] Magnesium Sulfate 1 gm/D5W 100 200 / 200 ml Premix 100 ML @ 100 mls/hr IV.SIG Q1H [facility] Rx#:[id number] KCl 10 mEq Premix Inj 10 meq In 500 / 500 300 / 300 300 / 300 100 ml @ 100 mls/hr IV.SIG Q1H [facility] Rx#:[id number] Oral 350 / 350 Output: Urine Other: # Urine Diapers 2 Date of Last Bowel Movement 05/10/18 05/11/18 # Bowel Movements 2 # Incontinent Bowel Movements 4 Narrative: GENERAL: Obese female, in no apparent distress. CARDIOVASCULAR: Normal rate and regular rhythm without murmurs, gallops, or rubs. RESPIRATORY: Good respiratory efforts. Breath sounds equal and clear to auscultation bilaterally. GASTROINTESTINAL: Abdomen soft, non-tender, non-distended. Normal active bowel sounds MUSCULOSKELETAL: 1+ bilateral lower extremity edema NEURO: Alert & Oriented x4 to person, place, time, situation. Moves all ext x4 PSYCH: Appropriate mood and affect. Results Procedures completed during hospitalization: cystoscopy, right retrograde pyelogram, lithotripsy, and right ureteral stent placement on 05/08/18 Completed studies during hospitalization: Pending at discharge 05/08/18 09:12 Surgical [PTH] Routine Labs on day of discharge: Labs from last 24 hours 05/11/18 05/11/18 05/11/18 11:00 09:57 07:15 WBC RBC Hgb Hct MCV MCH MCHC RDW Plt Count MPV Sodium 144 141 Potassium 3.1 L 3.2 L Chloride 112 H 111 H Carbon Dioxide 24.3 22.0 Anion Gap 8 8 BUN 19 H 20 H Creatinine 1.33 H 1.32 H Estimated GFR 39 L 40 L Random Glucose 112 H 95 Calcium 6.9 L* 7.1 L* Prot Corrected Calcium 8.2 L Phosphorus 2.6 D Magnesium 1.4 L Total Protein 5.1 L Albumin 1.1 L 05/11/18 05/10/18 07:15 14:14 WBC 5.4 RBC 2.97 L Hgb 8.6 L Hct 25.5 L MCV 86.0 MCH 28.9 MCHC 33.5 RDW 15.3 Plt Count 375 MPV 7.0 Sodium 143 Potassium 3.1 L Chloride 112 H Carbon Dioxide 21.4 Anion Gap 10 BUN 22 H Creatinine 1.63 H Estimated GFR 31 L Random Glucose 135 H Calcium 7.1 L* Prot Corrected Calcium 8.0 L Phosphorus Magnesium Total Protein 5.4 L D Albumin - Impressions ITS Impressions Abdomen/Pelvis CT 05/02/18 00:10 CONCLUSION: 1. Possible distal colonic diverticulitis or colitis with findings most suggestive of associated ileus. 2. Persistent right-sided hydronephrosis with proximal right ureteral stone. 3. Interval resolution of left-sided hydronephrosis 4. Other abdominal and pelvic findings are grossly stable. Abdomen X-Ray 05/07/18 00:00 CONCLUSION: Slightly decreased bowel distention today. Venous Doppler Study 05/08/18 00:00 CONCLUSION: 1. No sonographic evidence for lower extremity DVT. Discharge Plan - Discharge Disposition Patient Disposition: 03 Discharge to SNF - Discharge Condition Condition: Good - Discharge Order Discharge Orders: Discharge Order (Routine); Ordered 05/11/18 Ordered By: Iliana Oliveros - Physicians Team Primary Care Provider: UNKNOWN, Attending Provider: Iliana Oliveros Other Providers: Brenden Sena MD ; Juan,[employer] ; [facility] ; Librado Salazar MD ; Jacek Preciado MD
[2018-05-11] MEDS: Mag Sulf 1 gm/100 ml Premix 100 ML IV.SIG SCH ×2 (15:24→16:33)
[2018-05-11] MEDS: levoFLOXacin 750 MG Tablet PO SCH (15:24)
[2018-05-11 16:19] LABS: Calcium 7.1 mg/dL (8.5-10.1)
[2018-05-11] MEDS ORDERED: Calcium Gluconate Inj 1 GM in Sodium Chlor 0.9% Inj 90 ML IV.SIG ONE (17:00)
[2018-05-11] MEDS: Loperamide 2 MG Capsule PO PRN (17:34)
[2018-05-11 19:50] LABS: Calcium 7.2 mg/dL (8.5-10.1); Carbon Dioxide 21.3 meq/L (21.0-32.0); Magnesium 1.8 mg/dL (1.5-2.5); Potassium 3.4 meq/L (3.5-5.1)
[2018-05-11 20:09] LABS: Total Protein 5.4 g/dL (6.4-8.2)
[2018-05-11] MEDS: Calcium Carbonate 500 MG Tablet PO SCH (21:02)
[2018-05-12] MEDS: Loperamide 2 MG Capsule PO PRN (06:22)
[2018-05-12] MEDS: metroNIDAZOLE 500 MG Tablet PO SCH ×3 (06:23→22:10)
[2018-05-12] MEDS: Nystatin Liq 500,000 UNIT/5 ML UDC BUCCAL SCH ×4 (08:05→20:40)
[2018-05-12] MEDS: Calcium Carbonate 500 MG Tablet PO SCH ×2 (08:08→20:41)
[2018-05-12] MEDS: Senna/Docusate Sodium 8.6/50 MG Tablet PO SCH ×2 (08:09→20:42)
[2018-05-12] MEDS: Metoprolol Tartrate 100 MG Tablet PO SCH ×2 (10:01→20:40)
--- NOTE | 2018-05-12 11:18 | P.PNIM ---
Subjective Interval history: Patient is discharged. Awaiting insurance authorization. She states she is feeling great. No new issues. Physical Exam Vital signs: Vital Signs 05/11/18 12:00 05/11/18 16:00 05/11/18 20:00 Temperature 98.2 F 98.1 F 98.1 F Pulse Rate 83 90 98 H Respiratory Rate 20 20 20 Blood Pressure 109/58 L 99/56 L 102/58 L Pulse Oximetry 96 97 99 05/11/18 23:59 05/12/18 00:00 05/12/18 00:02 Temperature 98.1 F Pulse Rate 84 84 96 H Respiratory Rate 18 Blood Pressure 90/58 L Pulse Oximetry 97 05/12/18 01:26 05/12/18 04:00 05/12/18 04:03 Temperature 97.9 F Pulse Rate 87 87 Respiratory Rate 20 Blood Pressure 96/50 L Pulse Oximetry 94 L 05/12/18 04:26 05/12/18 08:00 Temperature 98.2 F Pulse Rate 90 Respiratory Rate 20 Blood Pressure 100/64 96/51 L Pulse Oximetry 95 Intake & Output 05/11/18 05/12/18 05/12/18 18:59 06:59 18:59 Intake Total 1080 / 1080 120 / 120 Balance 1080 / 1080 120 / 120 Weight 110 kg Intake: IV 600 / 600 Calcium Gluconate Inj 1 GM In 100 / 100 NS Inj 90 ML @ 100 mls/hr IV. SIG ONCE ONE Rx#:[id number] Magnesium Sulfate 1 gm/D5W 100 200 / 200 ml Premix 100 ML @ 100 mls/hr IV.SIG Q1H LYNN Rx#:[id number] KCl 10 mEq Premix Inj 10 meq In 300 / 300 100 ml @ 100 mls/hr IV.SIG Q1H LYNN Rx#:[id number] Oral 480 / 480 120 / 120 Other: # Voids 1 2 # Urine Diapers 2 Date of Last Bowel Movement 05/11/18 05/11/18 # Bowel Movements 2 2 # Incontinent Bowel Movements 2 Narrative: GENERAL: Obese female, in no apparent distress. CARDIOVASCULAR: Normal rate and regular rhythm without murmurs, gallops, or rubs. RESPIRATORY: Good respiratory efforts. Breath sounds equal and clear to auscultation bilaterally. GASTROINTESTINAL: Abdomen soft, non-tender, non-distended. Normal active bowel sounds MUSCULOSKELETAL: 1+ bilateral lower extremity edema, improved. - Urinary Catheter Management Indwelling Urethral Catheter Cath placed during this visit: yes, but has since been removed by the nurse Reason for continuing: Gross Hematuria Removal date: 05/09/18 Removal time: 06:46 Results - Labs CBC & Chem 7: 05/11/18 07:15 05/11/18 18:27 Laboratory Results - last 24 hr 05/10/18 05/11/18 05/11/18 03:55 11:00 18:27 Sodium 144 141 Potassium 3.1 L 3.4 L Chloride 112 H 110 H Carbon Dioxide 24.3 21.3 Anion Gap 8 10 BUN 19 H 18 Creatinine 1.33 H 1.24 H Estimated GFR 39 L 43 L Random Glucose 112 H 106 Calcium 7.1 L* 6.9 L* 7.2 L* Prot Corrected Calcium 8.1 L Phosphorus 2.6 D Magnesium 1.8 Total Protein 5.4 L Albumin 1.1 L - Procedures cystoscopy, right retrograde pyelogram, lithotripsy, and right ureteral stent placement on 05/08/18 Assessment and Plan - Assessment (1) Acute UTI Code(s): N39.0 - Urinary tract infection, site not specified Status: Acute (2) Renal calculi Code(s): N20.0 - Calculus of kidney Status: Acute (3) Hydronephrosis Code(s): N13.30 - Unspecified hydronephrosis Status: Acute (4) Acute kidney injury Code(s): N17.9 - Acute kidney failure, unspecified Status: Acute (5) Acute blood loss anemia Code(s): D62 - Acute posthemorrhagic anemia Status: Acute - Plan 72-year-old female with a diagnosis of atrial fibrillation and was on Eliquis prior to admission, she was seen at our facility a couple of weeks ago where she was in acute kidney injury secondary to bilateral renal calculi causing obstruction and kidney failure. The patient was admitted and started on IV fluids. Her creatinine subsequently improved and the patient did not undergo any procedure by urology during that admission. The patient began having bloody bowel movements and some abdominal pain a few days ago and came into our emergency department for evaluation. Evaluation and treatment course detailed below: Acute kidney injury with obstructing proximal ureteral calculus 1. Obstructing 10 mm right proximal ureteral calculus with hydronephrosis 2. Multiple nonobstructing left renal calculi. Patient is status post cystoscopy, right retrograde pyelogram, lithotripsy, and right ureteral stent placement on 05/08/18 Acute kidney injury is likely secondary to volume loss from the suspected upper GI bleed, and possibly obstructive right-sided nephropathy. Nephrology was consulted also followed the patient. No further urological intervention in the hospital per urology. Patient is advised to follow-up outpatient Patient was followed by nephrology and was diuresed per nephrology recommendations. She is discharged on 5 more days of Bumex for further diuresis for lower extremity edema. Hypokalemia and hypomagnesemia: -Her electrolytes were aggressively replaced. She will have BMP in a couple of days to ensure stability. Acute GI bleed Ileus Diverticulitis The patient was followed by GI. Hemoglobin is stable. GI had offered an upper endoscopy however the patient refused the procedure. Aspirin and Eliquis initially held. GI advised outpatient follow-up for endoscopy. Bleeding seems to spontaneously resolved. Given renal issues, the patient was started on half dose of Eliquis. No further bleeding observed. Acute symptomatic blood loss anemia secondary to GI bleed H&H stable. Continue Protonix. Atrial fibrillation The patient's metoprolol was held due to low blood pressure from her current condition. Blood pressure normalized. Resume Toprol. Eliquis has been held as noted above. Resume at half the dose as noted above. Borderline BP: -BP on the lower side after diuresis but asymptomatic. Decrease Metoprolol to 50 mg BID. Discharge Planning: Patient is discharged. Awaiting insurance company authorization.
[2018-05-13 00:55] VITALS: RESP 18
[2018-05-13] MEDS: metroNIDAZOLE 500 MG Tablet PO SCH (05:12)
[2018-05-13 06:48] VITALS: TEMP 98.2
[2018-05-13] MEDS: Calcium Carbonate 500 MG Tablet PO SCH (08:32)
[2018-05-13] MEDS: Senna/Docusate Sodium 8.6/50 MG Tablet PO SCH (08:32)
[2018-05-13] MEDS: Metoprolol Tartrate 100 MG Tablet PO SCH (08:32)
[2018-05-13] MEDS: Nystatin Liq 500,000 UNIT/5 ML UDC BUCCAL SCH (08:32)
[2018-05-13 08:37] VITALS: BP 105/59; O2SAT 99
[2018-05-13] MEDS: Loperamide 2 MG Capsule PO PRN (10:16)
--- NOTE | 2018-05-13 11:09 | P.PNIM ---
Subjective Interval history: Patient is discharged. Has been awaiting insurance authorization. She told me it has been approved and she is scheduled to go to the rehab facility today. Physical Exam Vital signs: Vital Signs 05/12/18 12:00 05/12/18 13:49 05/12/18 16:00 Temperature 99.1 F 98.2 F Pulse Rate 101 H 114 H Respiratory Rate 20 20 Blood Pressure 103/56 L 94/51 L Pulse Oximetry 96 96 94 L 05/12/18 20:00 05/12/18 20:08 05/12/18 23:58 Temperature 98.8 F Pulse Rate 117 H 118 H 94 H Respiratory Rate Blood Pressure 104/51 L Pulse Oximetry 96 05/13/18 00:00 05/13/18 04:00 05/13/18 08:00 Temperature 98.4 F 98.2 F 98.2 F Pulse Rate 93 H 92 H 99 H Respiratory Rate 18 18 18 Blood Pressure 102/50 L 105/58 L 105/59 L Pulse Oximetry 96 97 99 Intake & Output 05/12/18 05/13/18 05/13/18 18:59 06:59 18:59 Intake Total 480 / 480 Balance 480 / 480 Weight 101.1 kg Intake: Oral 480 / 480 Other: # Voids 1 # Urine Diapers 2 Date of Last Bowel Movement 05/12/18 05/13/18 # Bowel Movements 1 Narrative: GENERAL: Obese female, in no apparent distress. CARDIOVASCULAR: Normal rate and regular rhythm without murmurs, gallops, or rubs. RESPIRATORY: Good respiratory efforts. Breath sounds equal and clear to auscultation bilaterally. GASTROINTESTINAL: Abdomen soft, non-tender, non-distended. Normal active bowel sounds MUSCULOSKELETAL: 1+ bilateral lower extremity edema, improved. - Urinary Catheter Management Indwelling Urethral Catheter Cath placed during this visit: yes, but has since been removed by the nurse Reason for continuing: Gross Hematuria Removal date: 05/09/18 Removal time: 06:46 Results - Labs CBC & Chem 7: 05/11/18 07:15 05/11/18 18:27 - Procedures cystoscopy, right retrograde pyelogram, lithotripsy, and right ureteral stent placement on 05/08/18 Assessment and Plan - Assessment (1) Acute UTI Code(s): N39.0 - Urinary tract infection, site not specified Status: Acute (2) Renal calculi Code(s): N20.0 - Calculus of kidney Status: Acute (3) Hydronephrosis Code(s): N13.30 - Unspecified hydronephrosis Status: Acute (4) Acute kidney injury Code(s): N17.9 - Acute kidney failure, unspecified Status: Acute (5) Acute blood loss anemia Code(s): D62 - Acute posthemorrhagic anemia Status: Acute - Plan 72-year-old female with a diagnosis of atrial fibrillation and was on Eliquis prior to admission, she was seen at our facility a couple of weeks ago where she was in acute kidney injury secondary to bilateral renal calculi causing obstruction and kidney failure. The patient was admitted and started on IV fluids. Her creatinine subsequently improved and the patient did not undergo any procedure by urology during that admission. The patient began having bloody bowel movements and some abdominal pain a few days ago and came into our emergency department for evaluation. Evaluation and treatment course detailed below: 05/13/18: Patient to be discharged today. No change in management. Acute kidney injury with obstructing proximal ureteral calculus 1. Obstructing 10 mm right proximal ureteral calculus with hydronephrosis 2. Multiple nonobstructing left renal calculi. Patient is status post cystoscopy, right retrograde pyelogram, lithotripsy, and right ureteral stent placement on 05/08/18 Acute kidney injury is likely secondary to volume loss from the suspected upper GI bleed, and possibly obstructive right-sided nephropathy. Nephrology was consulted also followed the patient. No further urological intervention in the hospital per urology. Patient is advised to follow-up outpatient Patient was followed by nephrology and was diuresed per nephrology recommendations. She is discharged on 5 more days of Bumex for further diuresis for lower extremity edema. Hypokalemia and hypomagnesemia: -Her electrolytes were aggressively replaced. She will have BMP at the nursing facility in a couple of days to ensure stability. Acute GI bleed Ileus Diverticulitis The patient was followed by GI. Hemoglobin is stable. GI had offered an upper endoscopy however the patient refused the procedure. Aspirin and Eliquis initially held. GI advised outpatient follow-up for endoscopy. Bleeding seems to spontaneously resolved. Given renal issues, the patient was started on half dose of Eliquis. No further bleeding observed. Acute symptomatic blood loss anemia secondary to GI bleed H&H stable. Continue Protonix. Atrial fibrillation The patient's metoprolol was held due to low blood pressure from her current condition. Blood pressure normalized. Resume Toprol. Eliquis has been held as noted above. Resume at half the dose as noted above. Discharge Planning: Patient is discharged.
[2018-05-13 11:44] VITALS: PULSE 94
== END 2018-05-13 12:14 ==
LOC: PHED 18:25 → PHEDA 05-02 00:39 → HIMC 05-02 02:30 → N04 05-04 22:10
PROVIDERS: ADMIT Family Medicine; ATTEND Family Medicine